=== PATIENT | male | born 1960 | race Caucasian/White ===

== ENCOUNTER 2018-09-01 05:33 | Inpatient (IN) | payer BC ==
--- OUTSIDE RECORDS SUMMARY | 2018-09-01 05:36 | XMS REPORT ---
:1960 Author Organization [facility] Address [address] [place] [address] Care Team Providers Name Role Phone ARIELLA FANG Unavailable Unavailable Problems This patient has no known problems. Allergies, Adverse Reactions, Alerts This patient has no known allergies or adverse reactions. Medications This patient has no known medications. Results Test Description Test Time Test Comments Text Results Atomic Results Result Comments HEMOGLOBIN AND HEMATOCRIT 2016-12-11 09:24:00 Test Item Value Reference Range Comments HEMOGLOBIN (BEAKER) (test zlhu=930) 9.8 GM/DL 13.0-16.8 HEMATOCRIT (BEAKER) (test boxs=701) 29.7 % 40.0-50.0 POCT-GLUCOSE [id number] 08:04:00 Test Item Value Reference Range Comments POC-GLUCOSE METER (BEAKER) 59 mg/dL 70-110 TESTED AT [facility] [address] [facility] (test dqfg=6259) [facility] [address] BASIC METABOLIC [id number] 06:07:00 Test Item Value Reference Range Comments SODIUM (BEAKER) (test 140 meq/L 136-145 dtbs=961) POTASSIUM (BEAKER) (test 4.2 meq/L 3.5-5.1 mlrg=763) CHLORIDE (BEAKER) (test 114 meq/L 98-107 qqqi=630) CO2 (BEAKER) (test 20 meq/L 22-29 viux=600) BLOOD UREA NITROGEN 16 mg/dL 7-21 (BEAKER) (test wwsh=023) CREATININE (BEAKER) (test 1.23 mg/dL 0.57-1.25 bpvv=459) GLUCOSE RANDOM (BEAKER) 93 mg/dL 70-105 (test lhbg=843) CALCIUM (BEAKER) (test 6.8 mg/dL 8.4-10.2 lfpw=810) EGFR (BEAKER) (test 61 mL/min/1.73 sq m ESTIMATED GFR IS NOT niez=6968) ACCURATE CREATININE CLEARANCE IN PREDICTING GLOMERULAR FILTRATION RATE. ESTIMATED GFR IS NOT APPLICABLE FOR DIALYSIS PATIENTS. POCT-GLUCOSE [id number] 22:08:00 Test Item Value Reference Range Comments POC-GLUCOSE METER (BEAKER) 200 mg/dL 70-110 TESTED AT [address] (test lwmo=2664) [facility] [address] POCT-GLUCOSE [id number] 17:00:00 Test Item Value Reference Range Comments POC-GLUCOSE METER (BEAKER) 289 mg/dL 70-110 TESTED AT [address] (test ndvx=8791) [place] [id number] BASIC METABOLIC [id number] 14:43:00 Test Item Value Reference Range Comments SODIUM (BEAKER) (test 141 meq/L 136-145 llgq=791) POTASSIUM (BEAKER) (test 4.1 meq/L 3.5-5.1 fixc=318) CHLORIDE (BEAKER) (test 116 meq/L 98-107 pljo=077) CO2 (BEAKER) (test 17 meq/L 22-29 yhdn=653) BLOOD UREA NITROGEN 31 mg/dL 7-21 (BEAKER) (test iemb=048) CREATININE (BEAKER) (test 1.66 mg/dL 0.57-1.25 hxxs=128) GLUCOSE RANDOM (BEAKER) 261 mg/dL 70-105 (test tfsx=104) CALCIUM (BEAKER) (test 7.3 mg/dL 8.4-10.2 mlni=999) EGFR (BEAKER) (test 43 mL/min/1.73 sq m ESTIMATED GFR IS NOT szxl=5481) ACCURATE CREATININE CLEARANCE IN PREDICTING GLOMERULAR FILTRATION RATE. ESTIMATED GFR IS NOT APPLICABLE FOR DIALYSIS PATIENTS. HEMOGLOBIN AND [id number] 14:32:00 Test Item Value Reference Range Comments HEMOGLOBIN (BEAKER) (test uqta=262) 10.0 GM/DL 13.0-16.8 HEMATOCRIT (BEAKER) (test uwpd=113) 28.4 % 40.0-50.0 POCT-GLUCOSE [id number] 13:51:00 Test Item Value Reference Range Comments POC-GLUCOSE METER (BEAKER) 282 mg/dL 70-110 TESTED AT [address] (test ictf=7604) [place] [address] SODIUM NA-STAT [id number] 13:16:00 Test Item Value Reference Range Comments SODIUM (BEAKER) (test fgjg=777) 137 meq/L 135-148 POTASSIUM-STAT [id number] 13:16:00 Test Item Value Reference Range Comments POTASSIUM (BEAKER) (test gbab=517) 4.1 meq/L 3.6-5.5 BLOOD GAS, [id number] 13:16:00 Test Item Value Reference Range Comments PH ARTERIAL (BEAKER) (test rgdp=682) 7.32 7.35-7.45 PCO2 ARTERIAL (BEAKER) (test dmsv=687) 36 mmHg 35-45 PO2 ARTERIAL (BEAKER) (test grsv=654) 521 mmHg 80-90 O2 SATURATION ARTERIAL (BEAKER) (test xtwh=605) 99.9 % 96.0-97.0 HCO3 ARTERIAL (BEAKER) (test eyae=428) 18 mmol/L 21-29 BASE EXCESS ARTERIAL (BEAKER) (test jhud=824) -7.0 mmol/L -2.0-3.0 PATIENT TEMPERATURE (BEAKER) (test mawh=1352) 37.0 C FIO2 (BEAKER) (test rrsz=7476) 100.0 % GLUCOSE-STAT [id number] 13:16:00 Test Item Value Reference Range Comments GLUCOSE RANDOM (BEAKER) (test drys=852) 295 mg/dL 70-110 HGB/HCT (H&H) - STAT [id number] 13:16:00 Test Item Value Reference Range Comments HEMOGLOBIN (BEAKER) (test tmgy=591) 9.9 g/dL 13.0-16.8 HEMATOCRIT (BEAKER) (test ucui=286) 29.0 % 40.0-50.0 CALCIUM, [id number] 13:16:00 Test Item Value Reference Range Comments CALCIUM IONIZED (BEAKER) (test ioaz=174) 1.04 mmol/L 1.12-1.27 PH, BLOOD (BEAKER) (test efnx=0328) 7.32 BLOOD GAS, [id number] 12:22:00 Test Item Value Reference Range Comments PH ARTERIAL (BEAKER) (test smay=325) 7.33 7.35-7.45 PCO2 ARTERIAL (BEAKER) (test iavv=441) 31 mmHg 35-45 PO2 ARTERIAL (BEAKER) (test pmjd=722) 259 mmHg 80-90 O2 SATURATION ARTERIAL (BEAKER) (test dxek=027) 99.6 % 96.0-97.0 HCO3 ARTERIAL (BEAKER) (test jsvp=232) 16 mmol/L 21-29 BASE EXCESS ARTERIAL (BEAKER) (test bfpx=737) -9.4 mmol/L -2.0-3.0 PATIENT TEMPERATURE (BEAKER) (test vjzm=2353) 37.0 C FIO2 (BEAKER) (test eiij=3313) 21.0 % GLUCOSE-STAT [id number] 12:22:00 Test Item Value Reference Range Comments GLUCOSE RANDOM (BEAKER) (test xprw=481) 322 mg/dL 70-110 HGB/HCT (H&H) - STAT [id number] 12:22:00 Test Item Value Reference Range Comments HEMOGLOBIN (BEAKER) (test gkpp=536) 9.7 g/dL 13.0-16.8 HEMATOCRIT (BEAKER) (test higo=084) 29.0 % 40.0-50.0 CALCIUM, [id number] 12:22:00 Test Item Value Reference Range Comments CALCIUM IONIZED (BEAKER) (test mneu=015) 0.99 mmol/L 1.12-1.27 PH, BLOOD (BEAKER) (test mixm=5013) 7.33 SODIUM NA-STAT [id number] 12:18:00 Test Item Value Reference Range Comments SODIUM (BEAKER) (test lrlz=228) 136 meq/L 135-148 POTASSIUM-STAT [id number] 12:18:00 Test Item Value Reference Range Comments POTASSIUM (BEAKER) (test hblu=271) 4.4 meq/L 3.6-5.5 BLOOD GAS, [id number] 11:22:00 Test Item Value Reference Range Comments PH ARTERIAL (BEAKER) (test upfi=746) 7.35 7.35-7.45 PCO2 ARTERIAL (BEAKER) (test lxsq=259) 33 mmHg 35-45 PO2 ARTERIAL (BEAKER) (test xfdj=477) 312 mmHg 80-90 O2 SATURATION ARTERIAL (BEAKER) (test kisv=484) 99.7 % 96.0-97.0 HCO3 ARTERIAL (BEAKER) (test eyex=528) 17 mmol/L 21-29 BASE EXCESS ARTERIAL (BEAKER) (test mfze=697) -7.4 mmol/L -2.0-3.0 PATIENT TEMPERATURE (BEAKER) (test xkfb=5307) 37.0 C FIO2 (BEAKER) (test iuah=7742) 21.0 % GLUCOSE-STAT [id number] 11:22:00 Test Item Value Reference Range Comments GLUCOSE RANDOM (BEAKER) (test fznr=832) 352 mg/dL 70-110 HGB/HCT (H&H) - STAT [id number] 11:22:00 Test Item Value Reference Range Comments HEMOGLOBIN (BEAKER) (test aujc=599) 10.4 g/dL 13.0-16.8 HEMATOCRIT (BEAKER) (test vjqp=044) 31.0 % 40.0-50.0 CALCIUM, [id number] 11:22:00 Test Item Value Reference Range Comments CALCIUM IONIZED (BEAKER) (test llwa=747) 1.03 mmol/L 1.12-1.27 PH, BLOOD (BEAKER) (test fmyf=6458) 7.35 SODIUM NA-STAT [id number] 11:21:00 Test Item Value Reference Range Comments SODIUM (BEAKER) (test igvn=916) 136 meq/L 135-148 POTASSIUM-STAT [id number] 11:21:00 Test Item Value Reference Range Comments POTASSIUM (BEAKER) (test pwgi=701) 5.4 meq/L 3.6-5.5 SODIUM NA-STAT [id number] 08:47:00 Test Item Value Reference Range Comments SODIUM (BEAKER) (test edcs=059) 135 meq/L 135-148 POTASSIUM-STAT [id number] 08:47:00 Test Item Value Reference Range Comments POTASSIUM (BEAKER) (test eeez=996) 4.4 meq/L 3.6-5.5 BLOOD GAS, [id number] 08:47:00 Test Item Value Reference Range Comments PH ARTERIAL (BEAKER) (test nznm=186) 7.39 7.35-7.45 PCO2 ARTERIAL (BEAKER) (test tfef=427) 35 mmHg 35-45 PO2 ARTERIAL (BEAKER) (test oksq=558) 261 mmHg 80-90 O2 SATURATION ARTERIAL (BEAKER) (test rpyh=494) 99.6 % 96.0-97.0 HCO3 ARTERIAL (BEAKER) (test nyyh=764) 21 mmol/L 21-29 BASE EXCESS ARTERIAL (BEAKER) (test kwiw=141) -4.0 mmol/L -2.0-3.0 PATIENT TEMPERATURE (BEAKER) (test udws=4883) 37.0 C FIO2 (BEAKER) (test eumn=3782) 100.0 % GLUCOSE-STAT [id number] 08:47:00 Test Item Value Reference Range Comments GLUCOSE RANDOM (BEAKER) (test hkbo=048) 183 mg/dL 70-110 HGB/HCT (H&H) - STAT [id number] 08:47:00 Test Item Value Reference Range Comments HEMOGLOBIN (BEAKER) (test qeuq=565) 10.5 g/dL 13.0-16.8 HEMATOCRIT (BEAKER) (test wkjv=038) 31.0 % 40.0-50.0 CALCIUM, [id number] 08:47:00 Test Item Value Reference Range Comments CALCIUM IONIZED (BEAKER) (test kztt=775) 1.06 mmol/L 1.12-1.27 PH, BLOOD (BEAKER) (test fhnb=5896) 7.39 [id number] 06:53:00 Test Item Value Reference Range Comments POTASSIUM (BEAKER) (test xtev=736) 4.9 meq/L 3.6-5.5 POCT-GLUCOSE [id number] 06:45:00 Test Item Value Reference Range Comments POC-GLUCOSE METER (BEAKER) 208 mg/dL 70-110 TESTED AT [facility] [address] [place] [address] (test rwld=4871) [facility] [address] URINE [id number] 12:35:00 Test Item Value Reference Range Comments CULTURE (BEAKER) (test ENTEROCOCCUS SPECIES >100,000 col/mL triz=9811) Enterococcus species Ampicillin (test Susceptible >=17 , code=26) Resistant <17 Linezolid (test Susceptible >=23 , code=40) Resistant <23 Nitrofurantoin (test Susceptible >=17 , code=23) Resistant <17 Tetracycline (test Susceptible >=19 , code=2) Resistant <19 Vancomycin (test code=13) CBC W/PLT COUNT & AUTO [id number] 11:52:00 Test Item Value Reference Range Comments WHITE BLOOD CELL COUNT (BEAKER) (test vnij=902) 5.6 K/ L 4.0-10.0 RED BLOOD CELL COUNT (BEAKER) (test gdej=667) 4.27 M/ L 4.20-5.80 HEMOGLOBIN (BEAKER) (test zqjl=401) 13.5 GM/DL 13.0-16.8 HEMATOCRIT (BEAKER) (test pzij=231) 40.3 % 40.0-50.0 MEAN CORPUSCULAR VOLUME (BEAKER) (test zqkh=427) 94.3 fL 82.0-98.0 MEAN CORPUSCULAR HEMOGLOBIN (BEAKER) (test 31.6 pg 27.0-33.0 vhdz=866) MEAN CORPUSCULAR HEMOGLOBIN CONC (BEAKER) (test 33.5 GM/DL 32.0-36.0 cbkv=644) RED CELL DISTRIBUTION WIDTH (BEAKER) (test 12.4 % 10.3-14.2 plcr=759) PLATELET COUNT (BEAKER) (test hrkt=292) 205 K/CU MM 150-430 MEAN PLATELET VOLUME (BEAKER) (test zhvn=918) 7.6 fL 6.5-10.5 NUCLEATED RED BLOOD CELLS (BEAKER) (test 0 /100 WBC 0-0 swsn=787) NEUTROPHILS RELATIVE PERCENT (BEAKER) (test 47 % sjtv=061) LYMPHOCYTES RELATIVE PERCENT (BEAKER) (test 37 % ecwq=901) MONOCYTES RELATIVE PERCENT (BEAKER) (test 11 % nvgv=387) EOSINOPHILS RELATIVE PERCENT (BEAKER) (test 5 % vsvf=732) BASOPHILS RELATIVE PERCENT (BEAKER) (test 1 % sknq=181) NEUTROPHILS ABSOLUTE COUNT (BEAKER) (test 2.60 K/ L 1.80-8.00 znwp=681) LYMPHOCYTES ABSOLUTE COUNT (BEAKER) (test 2.08 K/ L 1.48-4.50 udxp=851) MONOCYTES ABSOLUTE COUNT (BEAKER) (test 0.61 K/ L 0.00-1.30 dezf=619) EOSINOPHILS ABSOLUTE COUNT (BEAKER) (test 0.26 K/ L 0.00-0.50 aueg=469) BASOPHILS ABSOLUTE COUNT (BEAKER) (test 0.04 K/ L 0.00-0.20 oaiv=359) 0.00COMPREHENSIVE METABOLIC [id number] 11:47:00 Test Item Value Reference Range Comments TOTAL PROTEIN (BEAKER) 7.4 gm/dL 6.0-8.3 Specimen slightly (test xonm=404) hemolyzed ALBUMIN (BEAKER) (test 4.1 g/dL 3.5-5.0 Specimen slightly kskm=6916) hemolyzed ALKALINE PHOSPHATASE 119 U/L 40-150 (BEAKER) (test dpye=986) BILIRUBIN TOTAL (BEAKER) 0.7 mg/dL 0.2-1.2 Specimen slightly (test fvxq=862) hemolyzed SODIUM (BEAKER) (test 140 meq/L 136-145 cnpg=190) POTASSIUM (BEAKER) (test 5.7 meq/L 3.5-5.1 Specimen slightly genp=960) hemolyzed CHLORIDE (BEAKER) (test 108 meq/L 98-107 nyqm=054) CO2 (BEAKER) (test 21 meq/L 22-29 bjvo=977) BLOOD UREA NITROGEN 31 mg/dL 7-21 (BEAKER) (test gzgq=356) CREATININE (BEAKER) (test 1.68 mg/dL 0.57-1.25 Specimen slightly zcia=008) hemolyzed GLUCOSE RANDOM (BEAKER) 217 mg/dL 70-105 (test rqyx=235) CALCIUM (BEAKER) (test 9.1 mg/dL 8.4-10.2 hhky=057) AST (SGOT) (BEAKER) (test 24 U/L 5-34 Specimen slightly maxm=362) hemolyzed ALT (SGPT) (BEAKER) (test 26 U/L 6-55 Specimen slightly xakj=317) hemolyzed EGFR (BEAKER) (test 42 mL/min/1.73 sq m ESTIMATED GFR IS NOT igbj=1602) ACCURATE CREATININE CLEARANCE IN PREDICTING GLOMERULAR FILTRATION RATE. ESTIMATED GFR IS NOT APPLICABLE FOR DIALYSIS PATIENTS. URINALYSIS W/ [id number] 11:46:00 Test Item Value Reference Range Comments COLOR (BEAKER) (test yzps=716) Yellow CLARITY (BEAKER) (test hpqa=629) Clear SPECIFIC GRAVITY UA (BEAKER) (test mwzq=492) 1.014 1.001-1.035 PH UA (BEAKER) (test xsmv=007) 5.5 5.0-8.0 PROTEIN UA (BEAKER) (test irah=207) 10 mg/dL Negative GLUCOSE UA (BEAKER) (test adbi=205) 200 mg/dL Negative KETONES UA (BEAKER) (test apga=342) Negative Negative BILIRUBIN UA (BEAKER) (test hcmc=281) Negative Negative BLOOD UA (BEAKER) (test foxq=511) Trace Negative NITRITE UA (BEAKER) (test opfu=047) Negative Negative LEUKOCYTE ESTERASE UA (BEAKER) (test fbkp=729) Large Negative UROBILINOGEN UA (BEAKER) (test wvya=325) 0.2 mg/dL 0.2-1.0 RBC UA (BEAKER) (test aesm=888) 19 /HPF WBC UA (BEAKER) (test hgux=605) 115 /HPF BACTERIA (BEAKER) (test adto=087) Many MUCUS (BEAKER) (test xxow=3129) Rare SQUAMOUS EPITHELIAL (BEAKER) (test mlse=437) < /HPF SOURCE(BEAKER) (test lvix=7590)
--- OUTSIDE RECORDS SUMMARY | 2018-09-01 05:36 | XMS REPORT | Clinical Summary ---
:1960 Author Organization [facility] Address [address] [place] [address] Care Team Providers Name Role Phone Radha Daniel Bruce Primary Care Provider Allergies Active Allergy Reactions Severity Noted Date Comments Penicillins Anaphylaxis High 11/27/2016 Medications Medication Sig Dispensed Refills Start Date End Date Status valsartan (DIOVAN) 80 MG Take 80 mg by 0 Active tablet mouth daily. ranolazine (RANEXA) 500 Take 500 mg by 0 Active MG 12 hr tablet mouth 2 (two) times daily. rosuvastatin (CRESTOR) 5 Take 5 mg by 0 Active MG tablet mouth daily. aspirin 81 MG EC tablet Take 81 mg by 0 Active mouth daily. ERGOCALCIFEROL, VITAMIN Take by mouth 0 Active D2, (VITAMIN D2 ORAL) daily. amoxicillin (AMOXIL) 500 Take 500 mg by 0 Active MG capsule mouth 3 (three) times daily. 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 Last Filed Vital Signs Not on file Plan of Treatment Not on file Results Not on fileafter 08/31/2017 Insurance Payer Benefit Plan / Group Subscriber ID Type Phone Address [facility] xxxxxxxxx Advance Directives For more information, please contact:[address] [phone] Code Status Date Activated Date Inactivated Comments Full Code 12/10/2016 4:04 PM 12/11/2016 3:02 PM This code status was determined by: Patient
--- OUTSIDE RECORDS SUMMARY | 2018-09-01 05:36 | XMS REPORT | Clinical Summary ---
:1960 Author Organization [facility] Address [address] [place] [address] Care Team Providers Name Role Phone Daniel Garcia MD Primary Care Provider Unavailable Allergies No Known Allergies Medications Medication Sig Dispensed Refills Start Date End Date Status valsartan (DIOVAN) 80 Take 80 mg by 0 02/12/2016 Active MG tablet mouth daily. RANEXA 500 mg 12 hr ER Take 500 mg by 0 02/12/2016 Active tablet mouth 2 (two) times a day. rosuvastatin (CRESTOR) Take 10 mg by 0 Active 10 MG tablet mouth daily. INSULIN REGULAR, HUMAN Inject under the 0 Active (INSULIN PUMP) 500 skin unit/mL continuously. aspirin (ECOTRIN) 81 MG Take 81 mg by 0 Active enteric coated tablet mouth daily. 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 Last Filed Vital Signs Not on file Plan of Treatment Health Maintenance Due Date Last Done Comments MMR VACCINES (1 of 1 - Standard 1960 series) VARICELLA VACCINES (1 of 2 - 2-dose 1972 adolescent series) COLON CANCER SCREENING 2009 SHINGRIX VACCINE (1 of 2) 2009 INFLUENZA VACCINE 05/11/2018 HEPATITIS B VACCINES Aged Out No longer eligible based on patient's age to complete this topic IPV VACCINES Aged Out No longer eligible based on patient's age to complete this topic MENINGOCOCCAL VACCINE Aged Out No longer eligible based on patient's age to complete this topic Implants Implanted Type Area Aniline Press Worker Device Shelf Model / Identifier Expiration Serial / Date Lot Skw Deep Scrotal Retract System - [id number] IPM SUPPLIES N/A: MACANESE [id number] / Implanted: Qty: 1 on 04/17/2016 by Cesar Harding MD PATIENT Penis MEDICAL / BILLABLE SYSTEMS- AMS Spectra Rear Tip Extenders 12mm & 14mm-3cm - [id number] IPM SUPPLIES N/A: N/A [employer]ANESE 03/05/2021 [id number] / Implanted: Qty: 1 on 04/17/2016 by Cesar Harding MD PATIENT MEDICAL / NON-BILLABLE SYSTEMS- AMS [id number] Injectables Injectables Kit Accy Infltbl Penile Ams 700 - [id number] Urological N/A: MACANESE 02/13 [id number] / Implanted: Qty: 1 on 04/17/2016 by Cesar Harding MD Implants or Penis MEDICAL / [employer] [id number] Implant Penile Ams 700 Lgx Ms Prcnctd Pnscrtl Aprch 18cm - [id number] Urological N/A: MACANESE 02/04/2018 [id number] / Implanted: Qty: 1 on 04/17/2016 by Cesar Harding MD Implants or Penis MEDICAL / [employer] [id number] Implant Penile Rsvr Ams 700 Ms Prcnctd W/ Iz 100ml - [id number] Urological N/A : MACANESE 09/03/2017 [id number] / Implanted: Qty: 1 on 04/17/2016 by Cesar Harding MD Implants or Penis MEDICAL / [employer] [id number] Insulin Pump Results Not on fileafter 08/31/2017 Insurance Payer Benefit Plan / Group Subscriber ID Type Phone Address [facility] xxxxxxxxx HMO Advance Directives Patient has advance care planning documents on file. For more information, please contact:[place] [address]
[2018-09-01] MEDS ORDERED: ASPIRIN 81 MG CHEWABLE TABLET ONE (06:13)
[2018-09-01] MEDS ORDERED: ENOXAPARIN 100 MG/ML SYR SQ ONE (06:13)
[2018-09-01] MEDS ORDERED: NITROGLYCERIN/D5W 50 MG/250 ML BTL IV ONE (06:14)
[2018-09-01 06:15] LABS: Protime INR 0.96
[2018-09-01 06:16] LABS: Absolute Lymphocytes (CBC) 1.1 K/uL (0.7-4.9); Absolute Monocytes 0.5 K/uL (0.1-1.3); Absolute Neutrophil 3.9 K/uL (1.8-8.0); Basophils % 0.7 % (0-1.3); Eosinophils % 1.6 % (0-4.4); Hematocrit 40.4 % (39.6-49.0); Lymphocytes % 19.6 % (15.3-44.8); MCV 90.8 fL (80-100); MPV 8.8 fL (7.6-11.3); Monocytes % 8.8 % (3.3-12.3); RBC Red Blood Cell Count 4.44 M/uL (4.33-5.43)
[2018-09-01 06:43] LABS: Albumin 3.7 g/dL (3.4-5.0); Bilirubin Direct 0.2 mg/dL (0-0.2); Bilirubin Total 0.5 mg/dL (0.2-1.0); Magnesium 1.9 mg/dL (1.8-2.4); Potassium 4.4 mmol/L (3.5-5.1); Protein, Total 7.4 g/dL (6.4-8.2); Troponin (Emerg Dept Use Only) 0.1 ng/mL (0.0-0.045)
--- NOTE | 2018-09-01 07:08 | EDPHYS ---
Physician Documentation [facility] Name: Florencio Holm Jr Age: 58 yrs Sex: Male : 1960 Arrival Date: 09/01/2018 Time: 05:34 Bed 8 Private MD: ED Physician Miguel Weston HPI: 09/01 07:27 This 58 yrs old Male presents to ER via EMS with complaints of chest pain. tw4 07:27 The patient or guardian reports chest pain that is located primarily in the anterior tw4 chest wall. Onset: today. The pain does not radiate. Associated signs and symptoms: The patient has no apparent associated signs or symptoms. The chest pain is described as dull. Duration: The patient or guardian reports a single episode. Severity of pain: At its worst the pain was moderate in the emergency department the pain is unchanged. The patient has not experienced similar symptoms in the past. Historical: - Allergies: 05:56 No Known Allergies; ao - Home Meds: 05:56 rosuvastatin oral oral [Active]; BP medication [Active]; Insulin pump [Active]; ao - PMHx: 05:56 CAD; Diabetes - IDDM; Hyperlipidemia; Hypertension; ao - PSHx: 05:56 Heart Surgery; ao - Immunization history:: Adult Immunizations up to date. - Social history:: Smoking status: Patient/guardian denies using tobacco, Patient/guardian denies using alcohol, street drugs. - Ebola Screening: : Patient negative for fever greater than or equal to 101.5 degrees Fahrenheit, and additional compatible Ebola Virus Disease symptoms Patient denies exposure to infectious person Patient denies travel to an Ebola-affected area in the 21 days before illness onset. ROS: 07:27 Constitutional: Negative for fever, chills, and weight loss, Respiratory: Negative for tw4 shortness of breath, cough, wheezing, and pleuritic chest pain, Abdomen/GI: Negative for abdominal pain, nausea, vomiting, diarrhea, and constipation, Back: Negative for injury and pain, MS/Extremity: Negative for injury and deformity, Skin: Negative for injury, rash, and discoloration, Neuro: Negative for headache, weakness, numbness, tingling, and seizure. 07:27 Cardiovascular: Positive for chest pain. Exam: 07:27 Constitutional: This is a well developed, well nourished patient who is awake, alert, tw4 and in no acute distress. Head/Face: Normocephalic, atraumatic. Chest/axilla: Normal chest wall appearance and motion. Nontender with no deformity. No lesions are appreciated. Cardiovascular: Regular rate and rhythm with a normal S1 and S2. No gallops, murmurs, or rubs. Normal PMI, no JVD. No pulse deficits. Respiratory: Lungs have equal breath sounds bilaterally, clear to auscultation and percussion. No rales, rhonchi or wheezes noted. No increased work of breathing, no retractions or nasal flaring. Abdomen/GI: Soft, non-tender, with normal bowel sounds. No distension or tympany. No guarding or rebound. No evidence of tenderness throughout. Back: No spinal tenderness. No costovertebral tenderness. Full range of motion. MS/ Extremity: Pulses equal, no cyanosis. Neurovascular intact. Full, normal range of motion. Neuro: Awake and alert, GCS 15, oriented to person, place, time, and situation. Cranial nerves II-XII grossly intact. Motor strength 5/5 in all extremities. Sensory grossly intact. Cerebellar exam normal. Normal gait. 07:27 ECG was reviewed by the Attending Physician. tw4 Vital Signs: 05:45 BP 186 / 92; Pulse 106; Resp 18; Temp 98.1(O); Pulse Ox 99% on R/A; Weight 94.35 kg; ao Height 5 ft. 11 in. (180.34 cm); Pain 6/10; 06:00 BP 168 / 98; Pulse 101; Resp 18; Pulse Ox 99% on R/A; jb4 06:15 BP 163 / 76; Pulse 94; Resp 18; Pulse Ox 99% on R/A; jb4 06:20 BP 157 / 78; Pulse 94; Resp 18; Pulse Ox 98% on R/A; jb4 06:25 BP 150 / 80; Pulse 97; Resp 18; Pulse Ox 98% on R/A; jb4 06:30 BP 164 / 74; Pulse 100; Resp 14; Pulse Ox 97% on R/A; jb4 06:35 BP 147 / 75; Pulse 100; Resp 15; Pulse Ox 96% on R/A; jb4 06:40 BP 140 / 77; Pulse 101; Resp 16; Pulse Ox 99% on R/A; jb4 06:45 BP 140 / 80; Pulse 100; Resp 17; Pulse Ox 96% on R/A; jb4 06:50 BP 140 / 81; Pulse 100; Resp 22; Pulse Ox 97% on R/A; jb4 06:55 BP 141 / 81; Pulse 100; Resp 22; Pulse Ox 96% on R/A; jb4 07:22 BP 140 / 83; Pulse 90; Resp 18 S; Pulse Ox 99% on R/A; Pain 0/10; jl7 08:46 BP 149 / 78; Pulse 88; Resp 16 S; Pulse Ox 100% on R/A; Pain 0/10; jl7 05:45 Body Mass Index 29.01 (94.35 kg, 180.34 cm) ao 06:30 Nitro drip increased to 10mcg/min, 3ml/hr jb4 06:50 Nitro drip increased 5mcg/min. total 15mcg/min. 4.5ml/hr jb4 MDM: 05:48 Patient medically screened. tw4 07:29 Differential diagnosis: acute myocardial infarction, acute pericarditis, pulmonary tw4 embolus, stable angina, thoracic aortic disection, unstable angina. HEART Score: History: Highly Suspicious (2), ECG: Significant ST-deviation (2), Age: > 45 and < 65 years (1), Risk Factors: > or = 3 Risk factors for atherosclerotic disease (2), Troponin: > or = 3 x Normal Limit (2). The patient was not given aspirin in the Emergency Department. Patient reports taking aspirin within the past 24 hours. Data reviewed: vital signs, nurses notes. Data interpreted: director of career resources: rhythm is sinus tachycardia, Pulse oximetry: Interpretation: normal. Test interpretation: by ED physician or midlevel provider: ECG. Counseling: I had a detailed discussion with the patient and/or guardian regarding: the historical points, exam findings, and any diagnostic results supporting the discharge/admit diagnosis, lab results, radiology results. Physician consultation: Elvira Haskins MD was contacted at 07:00, regarding admission, patient's condition, need to evaluate the patient as soon as possible, and will see patient in inpatient room, would like consultation with Dr. Dr Plummer discussed case with checking clerk at 0705. 07:31 Medication response: nitro drip. Response to treatment: the patient's symptoms have tw4 resolved after treatment, the patient's pain is gone, and as a result, I will admit patient, Lovenox and nitro paste. 09/01 05:39 Order name: Basic Metabolic Panel; Complete Time: 07:04 09/01 07:04 Interpretation: Normal except: GLUC 394; BUN 27; CRE 1.90; GFR 36. tw4 09/01 05:39 Order name: CBC with Diff; Complete Time: 07:06 09/01 05:39 Order name: LFT's; Complete Time: 07:04 09/01 07:04 Interpretation: Normal except: BILIT 0.5; GLOB 3.7; A/G 1.0. tw4 09/01 05:39 Order name: Magnesium; Complete Time: 07:06 09/01 05:39 Order name: NT PRO-BNP; Complete Time: 07:04 09/01 07:04 Interpretation: Normal except: NT PRO-BNP 299. tw4 09/01 05:39 Order name: PT-INR; Complete Time: 07:06 09/01 05:39 Order name: Troponin (emerg Dept Use Only); Complete Time: 07:04 09/01 07:04 Interpretation: Normal except: TROPED 0.10. tw4 09/01 05:39 Order name: XRAY Chest (1 view) 09/01 08:14 Order name: Glucose, Ancillary Testing EDMS 09/01 05:39 Order name: EKG; Complete Time: 05:41 09/01 05:39 Order name: Cardiac monitoring; Complete Time: 05:40 09/01 05:39 Order name: EKG - Nurse/Tech; Complete Time: 05:40 09/01 05:39 Order name: IV Saline Lock; Complete Time: 06:16 09/01 05:39 Order name: Labs collected and sent; Complete Time: 06:16 09/01 05:39 Order name: O2 Per Protocol; Complete Time: 05:40 09/01 05:39 Order name: O2 Sat Monitoring; Complete Time: 05:40 09/01 11:38 Order name: Diet Ada 1800 Jah; Complete Time: 11:38 aa5 EC: Rate is 103 beats/min. Rhythm is regular, Sinus tachycardia. QRS [place] is Normal. IA tw4 interval is normal. QRS interval is normal. QT interval is normal. No Q waves. T waves are Normal. Clinical impression: NSR w/ Non-specific ST/T Changes, Abnormal EKG without significant change, and Cardiac ischemia. Administered Medications: Discontinued: Nitro Drip - (Nitroglycerin 50 mg, D5W 250 ml) IV at 5 mcg/min continuous; titrate until desired hemodynamic response. 06:15 Drug: Nitro Drip - (Nitroglycerin 50 mg, D5W 250 ml) Route: IV; Rate: 5 mcg/min; Site: jb4 right antecubital; 07:10 Follow up: Response: No adverse reaction; IV Status: Order to discontinue infusion jl7 06:15 Drug: Lovenox 1 mg/kg Route: Sub-Q; Site: left lower abdomen; jb4 06:43 Follow up: Response: No adverse reaction jb4 06:22 Not Given (Pt took their own aspirin \T\ 0445 prior to comming to the ER): Aspirin jb4 Chewable Tablet 324 mg PO once; 81 mg tablets x 4 07:10 Drug: Nitro-Bid Ointment 2 % 1 inches Route: Transdermal; Site: anterior chest wall; jl7 11:35 Drug: Insulin Regular Human 10 units {Co-Signature: bp (Terrance Crain RN).} Route: IVP; jl7 Site: right antecubital; 12:31 Follow up: Response: Blood sugar is lowered jl7 Point of Care Testing: Blood Glucose: 07:20 Blood Glucose: 351 mg/dL; jl7 08:46 Blood Glucose: 329 mg/dL; jl7 Ranges: Critical Glucose Levels:Adult <50 mg/dl or >400 mg/dl <40 mg/dl or >180 mg/dl Disposition: 09/01/18 07:08 Hospitalization ordered by Elvira Haskins for Inpatient Admission. Preliminary diagnosis is Unstable angina. - Bed requested for Telemetry/MedSurg (Inpatient). - Status is Inpatient Admission. jl7 - Condition is Stable. - Problem is an ongoing problem. - Symptoms have improved. UTI on Admission? No Signatures: Dispatcher [employer] Rylee Newton RN RN dw Ballard, Brenda, RN RN bb Calderon, Audri RN RN aa5 David Nichols RN RN ao Bryson, James, RN RN jb4 Kee Dickey RN RN jl7 Miguel Weston MD MD tw4 Terrance Crain RN bp Corrections: (The following items were deleted from the chart) 10:56 07:08 Hospitalization Ordered by Elvira Haskins MD for Inpatient Admission. Preliminary aa5 diagnosis is Unstable angina. Bed requested for Telemetry/MedSurg (Inpatient). Status is Inpatient Admission. Condition is Stable. Problem is an ongoing problem. Symptoms have improved. UTI on Admission? No. tw4 10:57 10:56 09/01/2018 07:08 Hospitalization Ordered by Elvira Haskins MD for Inpatient aa5 Admission. Preliminary diagnosis is Unstable angina. Bed requested for [facility] ER HOLD. Status is Inpatient Admission. Condition is Stable. Problem is an ongoing problem. Symptoms have improved. UTI on Admission? No. aa5 10:57 10:57 09/01/2018 07:08 Hospitalization Ordered by Elvira Haskins MD for Inpatient aa5 Admission. Preliminary diagnosis is Unstable angina. Bed requested for [facility] ER HOLD. Status is Inpatient Admission. Condition is Stable. Problem is an ongoing problem. Symptoms have improved. UTI on Admission? No. aa5 11:55 10:57 09/01/2018 07:08 Hospitalization Ordered by Elvira Haskins MD for Inpatient dw Admission. Preliminary diagnosis is Unstable angina. Bed requested for [facility] ER HOLD. Status is Inpatient Admission. Condition is Stable. Problem is an ongoing problem. Symptoms have improved. UTI on Admission? No. aa5 12:58 11:55 09/01/2018 07:08 Hospitalization Ordered by Elvira Haskins MD for Inpatient jl7 Admission. Preliminary diagnosis is Unstable angina. Bed requested for Telemetry/MedSurg (Inpatient). Status is Inpatient Admission. Condition is Stable. Problem is an ongoing problem. Symptoms have improved. UTI on Admission? No. dw
--- NOTE | 2018-09-01 07:08 | ER ---
Nurse's Notes [facility] Name: Florencio Holm Jr Age: 58 yrs Sex: Male : 1960 Arrival Date: 09/01/2018 Time: 05:34 Bed 8 Private MD: Diagnosis: Unstable angina Presentation: 09/01 05:36 Presenting complaint: EMS states: Tone up for chest pain radiating to the left arm pit. ao Patient reports taking unknown amount of aspiring. Patient reports nausea. Transition of care: patient was not received from another setting of care. Onset of symptoms was September 01, 2018 at 04:00. Risk Assessment: Do you want to hurt yourself or someone else? Patient reports no desire to harm self or others. Initial Sepsis Screen: Does the patient meet any 2 criteria? No. Patient's initial sepsis screen is negative. Does the patient have a suspected source of infection? No. Patient's initial sepsis screen is negative. Care prior to arrival: Medication(s) given: ASA, unknown. 05:36 Method Of Arrival: EMS: [facility] ao 05:36 Acuity: FANI 2 ao Triage Assessment: 06:00 General: Appears in no apparent distress. uncomfortable, Behavior is anxious. Pain: ao Complains of pain in chest Pain radiates to left arm Pain currently is 8 out of 10 on a pain scale. EENT: No signs and/or symptoms were reported regarding the EENT system. Neuro: Level of Consciousness is awake, alert, obeys commands, Oriented to person, place, time, situation, Appropriate for age Moves all extremities. Full function Speech is normal, Facial symmetry appears normal, Pupils are PERRLA. Cardiovascular: Reports chest pain, shortness of breath, Capillary refill < 3 seconds Patient's skin is warm and dry. Respiratory: Reports shortness of breath Airway is patent Respiratory effort is even, unlabored, Respiratory pattern is regular, symmetrical. GI: Abdomen is round obese. : No signs and/or symptoms were reported regarding the genitourinary system. Derm: No signs and/or symptoms reported regarding the dermatologic system. Musculoskeletal: No signs and/or symptoms reported regarding the musculoskeletal system. Historical: - Allergies: 05:56 No Known Allergies; ao - Home Meds: 05:56 rosuvastatin oral oral [Active]; BP medication [Active]; Insulin pump [Active]; ao - PMHx: 05:56 CAD; Diabetes - IDDM; Hyperlipidemia; Hypertension; ao - PSHx: 05:56 Heart Surgery; ao - Immunization history:: Adult Immunizations up to date. - Social history:: Smoking status: Patient/guardian denies using tobacco, Patient/guardian denies using alcohol, street drugs. - Ebola Screening: : Patient negative for fever greater than or equal to 101.5 degrees Fahrenheit, and additional compatible Ebola Virus Disease symptoms Patient denies exposure to infectious person Patient denies travel to an Ebola-affected area in the 21 days before illness onset. Screenin:03 Abuse screen: Denies threats or abuse. Denies injuries from another. Nutritional ao screening: No deficits noted. Tuberculosis screening: No symptoms or risk factors identified. Fall Risk None identified. Assessment: 05:55 General: See triage assessment. ao 06:23 General: Appears in no apparent distress. comfortable, Behavior is cooperative, jb4 appropriate for age, anxious. Pain: Complains of pain in anterior aspect of right upper chest and anterior aspect of left upper chest Pain radiates to anterior aspect of right shoulder and anterior aspect of left shoulder Pain currently is 8 out of 10 on a pain scale. Quality of pain is described as pressure, Pain began 2 hours ago. Neuro: Level of Consciousness is awake, alert, obeys commands, Oriented to person, place, time, situation. Cardiovascular: Heart tones S1 S2 present Patient's skin is warm and dry. Rhythm is sinus tachycardia. Respiratory: Airway is patent Respiratory effort is even, unlabored, Respiratory pattern is regular, symmetrical, Breath sounds are clear bilaterally. GI: No signs and/or symptoms were reported involving the gastrointestinal system. : No signs and/or symptoms were reported regarding the genitourinary system. EENT: No signs and/or symptoms were reported regarding the EENT system. Derm: Skin is intact, Skin is pink, warm \T\ dry. Musculoskeletal: Circulation, motion, and sensation intact. 07:22 General: Appears in no apparent distress. uncomfortable, Behavior is calm, cooperative, jl7 appropriate for age. Pain: Denies pain. Neuro: Level of Consciousness is awake, alert, obeys commands, Oriented to person, place, time, situation. Cardiovascular: Heart tones S1 S2 present Patient's skin is warm and dry. Rhythm is sinus rhythm. Respiratory: Airway is patent Respiratory effort is even, unlabored, Respiratory pattern is regular, symmetrical, Breath sounds are clear bilaterally. GI: Patient currently denies diarrhea, nausea, vomiting. : No signs and/or symptoms were reported regarding the genitourinary system. EENT: No signs and/or symptoms were reported regarding the EENT system. Derm: Skin is pink, warm \T\ dry. Musculoskeletal: No signs and/or symptoms reported regarding the musculoskeletal system. 07:30 Reassessment: Per Dr. Weston, pt removed insulin pump. Will check BGL in 1 hour and jl7 follow sliding scale order. 08:48 Reassessment: Patient appears in no apparent distress at this time. No changes from jl7 previously documented assessment. Patient and/or family updated on plan of care and expected duration. Pain level reassessed. Patient is alert, oriented x 3, equal unlabored respirations, skin warm/dry/pink. Dr. Plummer at bedside discussing plan of care. Vital Signs: 05:45 BP 186 / 92; Pulse 106; Resp 18; Temp 98.1(O); Pulse Ox 99% on R/A; Weight 94.35 kg; ao Height 5 ft. 11 in. (180.34 cm); Pain 6/10; 06:00 BP 168 / 98; Pulse 101; Resp 18; Pulse Ox 99% on R/A; jb4 06:15 BP 163 / 76; Pulse 94; Resp 18; Pulse Ox 99% on R/A; jb4 06:20 BP 157 / 78; Pulse 94; Resp 18; Pulse Ox 98% on R/A; jb4 06:25 BP 150 / 80; Pulse 97; Resp 18; Pulse Ox 98% on R/A; jb4 06:30 BP 164 / 74; Pulse 100; Resp 14; Pulse Ox 97% on R/A; jb4 06:35 BP 147 / 75; Pulse 100; Resp 15; Pulse Ox 96% on R/A; jb4 06:40 BP 140 / 77; Pulse 101; Resp 16; Pulse Ox 99% on R/A; jb4 06:45 BP 140 / 80; Pulse 100; Resp 17; Pulse Ox 96% on R/A; jb4 06:50 BP 140 / 81; Pulse 100; Resp 22; Pulse Ox 97% on R/A; jb4 06:55 BP 141 / 81; Pulse 100; Resp 22; Pulse Ox 96% on R/A; jb4 07:22 BP 140 / 83; Pulse 90; Resp 18 S; Pulse Ox 99% on R/A; Pain 0/10; jl7 08:46 BP 149 / 78; Pulse 88; Resp 16 S; Pulse Ox 100% on R/A; Pain 0/10; jl7 05:45 Body Mass Index 29.01 (94.35 kg, 180.34 cm) ao 06:30 Nitro drip increased to 10mcg/min, 3ml/hr jb4 06:50 Nitro drip increased 5mcg/min. total 15mcg/min. 4.5ml/hr jb4 ED Course: 05:34 Patient arrived in ED. al2 05:48 Miguel Weston MD is Attending Physician. tw4 05:53 Triage completed. ao 05:53 Power Mary RN is Primary Nurse. jb4 05:55 Inserted saline lock: 22 gauge in right antecubital area, using aseptic technique. ao Blood collected. 05:55 EKG done, by ED staff, reviewed by Miguel Weston MD. ao 05:57 X-ray completed. Portable x-ray completed in exam room. Patient tolerated procedure bb2 well. 05:58 Arm band placed on right wrist. Patient placed in an exam room, on a stretcher, on ao oxygen, on phototypesetting equipment monitor, on pulse oximetry. 06:00 XRAY Chest (1 view) In Process Unspecified. EDMS 06:03 Patient has correct armband on for positive identification. secured entrance monitor on. Pulse ao ox on. NIBP on. 07:07 Elvira Haskins MD is Hospitalizing Provider. tw4 07:22 Primary Nurse role handed off by Power Mary, RN jl7 07:22 Kee Dickey RN is Primary Nurse. jl7 12:57 No provider procedures requiring assistance completed. Patient admitted, IV remains in jl7 place. intact, No redness/swelling at site. Administered Medications: Discontinued: Nitro Drip - (Nitroglycerin 50 mg, D5W 250 ml) IV at 5 mcg/min continuous; titrate until desired hemodynamic response. 06:15 Drug: Nitro Drip - (Nitroglycerin 50 mg, D5W 250 ml) Route: IV; Rate: 5 mcg/min; Site: jb4 right antecubital; 07:10 Follow up: Response: No adverse reaction; IV Status: Order to discontinue infusion jl7 06:15 Drug: Lovenox 1 mg/kg Route: Sub-Q; Site: left lower abdomen; jb4 06:43 Follow up: Response: No adverse reaction jb4 06:22 Not Given (Pt took their own aspirin \T\ 0445 prior to comming to the ER): Aspirin jb4 Chewable Tablet 324 mg PO once; 81 mg tablets x 4 07:10 Drug: Nitro-Bid Ointment 2 % 1 inches Route: Transdermal; Site: anterior chest wall; jl7 11:35 Drug: Insulin Regular Human 10 units {Co-Signature: bp (Terrance Crain RN).} Route: IVP; jl7 Site: right antecubital; 12:31 Follow up: Response: Blood sugar is lowered jl7 Point of Care Testing: Blood Glucose: 07:20 Blood Glucose: 351 mg/dL; jl7 08:46 Blood Glucose: 329 mg/dL; jl7 Ranges: Outcome: 07:08 Decision to Hospitalize by Provider. tw4 12:57 Admitted to Tele accompanied by tech, via wheelchair, room 422, with chart, Report jl7 called to KURT El 12:57 Condition: stable 12:57 Discharge instructions given to patient, Instructed on the need for admit, Demonstrated understanding of instructions. 12:58 Patient left the ED. jl7 Signatures: Dispatcher [employer] David Cruz RN RN ao Bryson, James, RN RN jb4 Kee Dickey RN RN jl7 Haven Elkins Angelica al2 Wadley, Terrence, MD MD tw4 Terrance Crain RN bp Corrections: (The following items were deleted from the chart) 06:42 06:23 Cardiovascular: Heart tones S1 S2 present Patient's skin is warm and dry. Rhythm jb4 is sinus rhythm jb4 06:47 06:30 BP 164 / 74; Pulse 100bpm; Resp 14bpm; Pulse Ox 97% RA; Nitro drip increased to jb4 10mcg/min; jb4 08:49 08:48 Reassessment: Dr. Plummer at bedside discussing plan of care. jl7 jl
[2018-09-01] MEDS ORDERED: NITROGLYCERIN 1 GM PKT TD ONE (07:19)
--- NOTE | 2018-09-01 09:40 | EKG ---
Test Date: 2018-09-01 Test Time: 05:33:36 Stunner: KENDRA MEASUREMENT RESULTS: Intervals: Rate: 103 TX: 170 QRSD: 102 QT: 380 QTc: 497 Central: P: 73 TX: 170 QRS: -3 T: 60 INTERPRETIVE STATEMENTS: Sinus tachycardia Marked ST abnormality, possible inferior subendocardial injury Abnormal ECG Compared to ECG 03/28/2017 15:21:50 Sinus rhythm no longer present Prolonged QT interval no longer present ST (T wave) deviation still present Electronically Signed On 09-01-18 09:39:51 DIGITAL CONTENT COORDINATOR by Francisco Plummer
[2018-09-01] MEDS ORDERED: ONDANSETRON 4 MG/2 ML VIAL IV PRN (10:27)
[2018-09-01] MEDS ORDERED: ACETAMINOPHEN 500 MG TAB PO PRN (10:27)
--- NOTE | 2018-09-01 10:31 | CON ---
Brief History: Mr. Holm is 58. He had bypass surgery roughly 10 years ago. He has had another c ardiac cath since then. He did need a stent. He had one graft that was totally closed, there was no revascularization option. He has been dealing with stable angina for the past couple of years. He has been doing well, but this morning got much worse angina. It was associated with some blood sugar swings. He had a low blood sugar spell and stopped his insulin infusion and woke up at 4 in the [facility] with chest pain, blood sugars over 400. Chest pain is gone away with nitroglycerin. Past Medical History: His history is significant for diabetes, hypertension, dyslipidemia, coronary artery bypass surgery, and renal insufficiency. Medications: He takes rosuvastatin, insulin pump, aspirin at home. Social History: He never uses tobacco or illegal drugs, rare alcohol. Physical Examination: Vital Signs: Blood pressure 141/81, pulse 100, respirations 22, O2 saturation 96% on room air. Neck: No carotid bruit. Lungs: No crackles or wheeze. Heart: Regular rate and rhythm. No murmur or gallop. Abdomen: Soft. Extremities: A 1+ to 2+ pedal edema. Diagnostic Data: His creatinine is 1.9. Recommendations: I have recommended that we do a cardiac cath tomorrow. We will give him Mucomyst t gavi. If he is ready to put a stent in, perhaps the while swinging blood sugars as what has made him unstable instead of a new lesion in his heart, but I am very concerned that his bypass grafts are de teriorating. He may need to repeat surgery or a stent to save one of his grafts. He was pretty clos e to the graft dependent at his last heart catheterization. Thank you very much for kind referral of Mr. Holm. I will follow him with you. MIGUEL Voice ID: [id number] Report ID: [id number]
[2018-09-01] MEDS ORDERED: INSULIN -REGULAR HUMAN 50 UNIT/0.5 ML ML ONE (11:45)
--- NOTE | 2018-09-01 11:58 | RAD REPORT ---
EXAM DESCRIPTION: RAD - Chest Single View - 09/01/2018 5:59 am CLINICAL HISTORY: CHEST PAIN Chest pain. COMPARISON: CHEST SINGLE VIEW dated 05/22/2013; CHEST SINGLE VIEW dated 05/21/2013 FINDINGS: Portable technique limits examination quality. Mild linear atelectasis is present at the left lung base. Mild interstitial pulmonary edema is seen. The heart is normal in size. No displaced fractures.Sternotomy wires present. IMPRESSION: Mild interstitial pulmonary edema versus volume overload.
[2018-09-01 13:09] VITALS: BMI 28.4
[2018-09-01] MEDS ORDERED: D50W 25 GM/50 ML SYRINGE IV PRN (13:39)
[2018-09-01] MEDS ORDERED: GLUCAGON 1 MG/VIAL IM PRN (13:39)
--- NOTE | 2018-09-01 13:41 | P.HP ---
Certification for Inpatient Patient admitted to: Inpatient With expected LOS: >2 Midnights Patient will require the following post-hospital care: None Practitioner: I am a practitioner with admitting privileges, knowledge of patient current condition, hospital course, and medical plan of care. Services: Services provided to patient in accordance with Admission requirements found in Title 42 Section 412.3 of the Code of Federal Regulations Patient History Date of Service: 09/01/18 Reason for admission: Chest pain History of Present Illness: 58-year-old male with significant past medical history of high blood pressure, diabetes, hyperlipidemia, CAD, who presented to the ED complaining of having some chest pain while he was lifting heavy stuff into the house. Patient stated that after lifting heavy stuff in to the house he started having some shortness of breath and chest pain. Patient had had similar episode in the past where he had a cardiac catheterization done and stent placement at that time. Patient was decided to come to the ER for further workup. In the ER patient was found to have elevated troponin and nonspecific EKG changes along with fluctuating blood sugar. Patient thus was admitted to the hospital for further care. Allergies Penicillins Allergy (Severe, Verified 05/21/13 14:13) Anaphylaxis No Known Allergi Allergy (Uncoded 03/28/17 12:46) Unknown Home Medications: Amlodipine Besylate [Norvasc] 2.5 mg PO DAILY 03/28/17 Aspirin [Aspir-Low] 81 mg PO DAILY 03/28/17 Cholecalciferol (Vitamin D3) [Vitamin D3] 1 cap PO DAILY 03/28/17 Garlic 1 cap PO DAILY 03/28/17 Rosuvastatin Calcium 5 mg PO BEDTIME 03/28/17 Sodium Polystyrene Sulfon/Sorb [Sps 15 gm/60 ml Suspension] 4 tbsp PO SEECOM Carvedilol [Coreg*] 6.25 mg PO BID #60 tab 03/31/17 Ranolazine [Ranexa] 1,000 mg PO BID #60 03/31/17 - Past Medical/Surgical History Diabetic: Yes -: htn -: Chronic kidney disease -: DM1 on insulin pump 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 Nicole -: CAD status post bypass surgery -: Hyperlipidemia -: cardiac cath -: CABG 2 vessel disease -: Penile implant and subsequently removal -: Urethral repair -: Suprapubic catheter and subsequent removal - Family History Father History Unknown: Yes -: Heart disease - Social History Smoking Status: Never smoker Alcohol use: No CD- Drugs: No Caffeine use: Yes Place of Residence: Home Review of Systems 10-point ROS is otherwise unremarkable Physical Examination - Vital Signs Temperature: 97.0 F Blood Pressure: 151/69 Pulse: 91 Respirations: 20 Pulse Ox (%): 97 - Physical Exam General: Alert, In no apparent distress HEENT: Atraumatic, PERRLA, Mucous membr. moist/pink, EOMI, Sclerae nonicteric Neck: Supple, 2+ carotid pulse no bruit, No LAD, Without JVD or thyroid abnormality Respiratory: Clear to auscultation bilaterally, Normal air movement Cardiovascular: Regular rate/rhythm, Normal S1 S2 Gastrointestinal: Normal bowel sounds, No tenderness Musculoskeletal: No tenderness Integumentary: No rashes Neurological: Normal gait, Normal speech, Normal strength at 5/5 x4 extr, Normal tone, Normal affect Lymphatics: No axilla or inguinal lymphadenopathy - Studies Laboratory Data (last 24 hrs) 09/01/18 05:55: PT 11.3, INR 0.96 09/01/18 05:55: WBC 5.7, Hgb 13.8, Hct 40.4, Plt Count 194 09/01/18 05:55: Sodium 136, Potassium 4.4, BUN 27 H, Creatinine 1.90 H, Glucose 394 H, Magnesium 1.9, Total Bilirubin 0.5, AST 19, ALT 28, Alkaline Phosphatase 128 H Assessment and Plan - Problems (Diagnosis) (1) NSTEMI (non-ST elevated myocardial infarction) Current Visit: Yes Status: Acute Plan: NSTEMI with Elevated troponin and nonspecific EKG changes -cardiology consulted. Appreciated recommendations at this time -patient scheduled for cardiac catheterization tomorrow -will continue all ACS medication at this time (2) Hyperlipidemia Current Visit: Yes Status: Chronic Plan: Restart home medication Qualifiers: Hyperlipidemia type: mixed hyperlipidemia Qualified Code(s): E78.2 - Mixed hyperlipidemia (3) CAD (coronary artery disease) Onset Date: 03/29/17 Current Visit: No Status: Chronic Plan: Restart home medication Qualifiers: Coronary Disease-Associated Artery/Lesion type: [place] artery [place] vs. transplanted heart: [place] heart Associated angina: with unstable angina Qualified Code(s): I25.110 - Atherosclerotic heart disease of [place] coronary artery with unstable angina pectoris (4) Diabetes Onset Date: 03/29/17 Current Visit: No Status: Chronic Plan: Placed on insulin sliding scale Qualifiers: Diabetes mellitus type: type 2 Diabetes mellitus middle or intermediate school principal insulin use: without middle or intermediate school principal use Diabetes mellitus complication status: without complication Qualified Code(s): E11.9 - Type 2 diabetes mellitus without complications (5) HTN (hypertension) Onset Date: 03/29/17 Current Visit: No Status: Chronic Plan: Restart home medication Qualifiers: Hypertension type: essential hypertension - Plan Admit the patient to the regular floor for non ST segment elevated PA. cardiology to do cardiac catheterization Discharge Plan: Home Plan to discharge in: 72 Hours - Advance Directives Does patient have a Living Will: Yes Does patient have a Durable POA for Healthcare: Yes - Code Status/Comfort Care Code Status Assessed: Yes Critical Care: No
[2018-09-01] MEDS: NA CHLORIDE 0.9% 1,000 ML IV SCH ×2 (13:58→21:44)
[2018-09-01] MEDS: INSULIN -REGULAR HUMAN 50 UNIT/0.5 ML ML SQ SCH ×2 (16:34→21:42)
[2018-09-01] MEDS: ACETYLCYST 20% 800 MG/4 ML VIAL PO SCH (21:44)
[2018-09-02 05:17] LABS: Absolute Lymphocytes (CBC) 1.4 K/uL (0.7-4.9); Absolute Monocytes 0.6 K/uL (0.1-1.3); Absolute Neutrophil 2.7 K/uL (1.8-8.0); Basophils % 0.8 % (0-1.3); Hematocrit 36.7 % (39.6-49.0); Lymphocytes % 28.4 % (15.3-44.8); MCH 30.9 pg (27.0-35.0); MCV 90.5 fL (80-100); MPV 8.7 fL (7.6-11.3); Monocytes % 12.5 % (3.3-12.3); RBC Red Blood Cell Count 4.06 M/uL (4.33-5.43)
[2018-09-02 05:28] LABS: Urine Appearance CLEAR; Urine Bilirubin NEGATIVE (NEG); Urine Blood 2+ (NEG); Urine Color YELLOW; Urine Glucose 3+ (NEG); Urine Protein NEGATIVE (NEG); Urine Specific Gravity 1.015 (1.005-1.030); Urine Urobilinogen 0.2 mg/dL (0.2-1.0)
[2018-09-02 05:30] LABS: Albumin 3.2 g/dL (3.4-5.0); Bilirubin Total 0.6 mg/dL (0.2-1.0); Potassium 4.5 mmol/L (3.5-5.1); Protein, Total 6.4 g/dL (6.4-8.2)
[2018-09-02 05:31] LABS: Urine Microscopic Reflex ORDER UMIC
[2018-09-02 05:48] LABS: Urine Bacteria <20 /HPF (NONE SEEN); Urine Culture Reflex Order NOT NEEDED; Urine RBC 20-50 /HPF (NONE SEEN)
[2018-09-02] MEDS ORDERED: MORPHINE 2 MG/ML SYR IV PRN (06:51)
[2018-09-02] MEDS: NA CHLORIDE 0.9% 1,000 ML IV SCH (07:00)
[2018-09-02] MEDS ORDERED: HYDROMORPHONE HCL 0.5 MG/0.5 ML INJ IV ONE (07:01)
[2018-09-02] MEDS: INSULIN -REGULAR HUMAN 50 UNIT/0.5 ML ML SQ SCH ×3 (07:30→12:53)
[2018-09-02] MEDS ORDERED: NITROGLYCERIN 0.4 MG/TAB SL PRN (08:35)
[2018-09-02] MEDS ORDERED: NITROGLYCERIN 0.4 MG/TAB SL ONE (08:39)
[2018-09-02] MEDS ORDERED: INSULIN -REGULAR HUMAN 50 UNIT/0.5 ML ML ONE (08:55)
[2018-09-02] MEDS ORDERED: MIDAZOLAM HCL 2 MG/2 ML INJ ONE (08:57)
[2018-09-02] MEDS ORDERED: FENTANYL CITR 100 MCG/2 ML ONE (08:57)
[2018-09-02] MEDS ORDERED: METOPROLOL TARTRATE 5 MG/5 ML INJ IV ONE ×2 (08:58→09:51)
[2018-09-02] MEDS ORDERED: PRASUGREL (EFFIENT) 10 MG TAB ONE (09:50)
[2018-09-02] MEDS ORDERED: HEPA 1000U/500MLS 2,000 UNIT/1,000 ML BAG IV ONE (09:57)
[2018-09-02] MEDS ORDERED: NA CHLORIDE 0.9% 50 ML ONE (09:58)
[2018-09-02] MEDS ORDERED: METOPROLOL TAR 50 MG TAB ONE (09:59)
[2018-09-02] MEDS ORDERED: NA CHLORIDE 0.9% 1,000 ML IV SCH (11:00)
[2018-09-02] MEDS ORDERED: ACETAMINOPHEN 325 MG TABLET PO PRN (11:00)
--- NOTE | 2018-09-02 11:09 | OP ---
Surgeon: Francisco Plummer MD Procedure: Left heart catheterization, coronary angiography, saphenous vein graft angiography, left internal mammary artery angiography, percutaneous coronary angioplasty with a stent of the mid right coronary stenosis. It was more than 99% with thrombus and dissection, and after the procedure less t huerta 10% stenotic. Indication For The Procedure: Unstable angina. Procedure Findings: The patient has a patent left internal mammary that supplies the LAD with good b lood flow. No significant stenosis. He has a saphenous vein graft that goes to the diagonal artery with good flow. No significant stenosis. His LAD and circumflex are both totally occluded. There i s no graft that goes to the right coronary. The right coronary itself is a diffusely diseased large vessel both ectasia, calcification, and stenosis. In its mid section, there was a very tight area of 99 or more percent stenosis, JAYCE grade 1 flow. After stenting, that was less than 10% residual nancy nosis. The stent was a 3.0 x 16 Synergy post dilated with a 3.0 x 12 noncompliant balloon up to 20 a tmospheres. An Emerge noncompliant balloon was used. Procedure In Detail: The patient was brought to the cardiac animal laboratory technician fasting, sedated with Versed an d fentanyl, prepared and draped in usual sterile fashion. Right femoral approach was used. A 4-Fren ch sheath was placed in the right femoral artery. We used a JL4 to angiogram the left coronary, a JR 4 to angiogram right coronary; graft to the diagonal, saphenous vein and left internal mammary artery graft to the LAD, all using that catheter. We did not do an LV gram. We did measure LV pressures. There was no gradient. End-diastolic pressure appeared to be elevated around 18 to 20. After a dec ision was made that he needed a stent, we exchanged for a 6-[place] sheath. We initially tried a 3DRC with side holes. We were able to cross the lesion with the wire. We could not cross using a balloo n, so we exchanged the catheter. We withdrew the balloon, exchanged the guide catheter over the sonia nary guidewire. We were able to recannulate and the lesion remained cross with the initial Arianna wi re. We were then able to cross the lesion. We were able to deep throat the right coronary using mul tipurpose with side holes, 6-[place] and that gave us enough support to cross the lesion, dilated it. We pre-dilated up to 16 atmospheres. We were able to cross with a 3.0 x 16 Synergy stent, dilated t hat to 14 atmospheres and then post dilated at 20 atmospheres with an Emerge 3.0 x 12 balloon. At th e end of the procedure, the angiographic result was excellent. Symptoms resolved. Hemodynamically s table. Final pictures were taken. Wires, catheters, balloons were all removed and an angiogram was made of the right femoral artery using the sheath. Adequate anatomy was seen and we will close the a rteriotomy using an Angio-Seal device. Complications: From the procedure none. Estimated Blood Loss: 50 cc. Sorter/Assay Tech: Leelee Paris. JERONIMO/CARIN Voice ID: [id number] Report ID: [id number]
--- NOTE | 2018-09-02 15:13 | P.PN ---
Subjective Date of Service: 09/02/18 Chief Complaint: Chest pain Subjective: Tolerating diet, Ambulating, Improving, Working w/ PT, Doing well Review of Systems 10-point ROS is otherwise unremarkable Physical Examination - Vital Signs Temperature: 97.5 F Blood Pressure: 125/66 Pulse: 72 Respirations: 20 Pulse Ox (%): 96 - Physical Exam General: Alert, In no apparent distress HEENT: Atraumatic, PERRLA, EOMI Neck: Supple, JVD not distended Respiratory: Clear to auscultation bilaterally, Normal air movement Cardiovascular: Regular rate/rhythm, Normal S1 S2 Gastrointestinal: Normal bowel sounds, No tenderness Musculoskeletal: No tenderness Integumentary: No rashes Neurological: Normal speech, Normal tone, Normal affect Lymphatics: No axilla or inguinal lymphadenopathy - Studies Medications List Reviewed: Yes Assessment And Plan - Current Problems (Diagnosis) (1) NSTEMI (non-ST elevated myocardial infarction) Current Visit: Yes Status: Acute Plan: NSTEMI with Elevated troponin and nonspecific EKG changes -cardiology consulted. Appreciated recommendations at this time -S/p Cath today with Stent placement in the RCA -ACS meds with effient (2) Hyperlipidemia Current Visit: Yes Status: Chronic Plan: Restart home medication Qualifiers: Hyperlipidemia type: mixed hyperlipidemia Qualified Code(s): E78.2 - Mixed hyperlipidemia (3) CAD (coronary artery disease) Onset Date: 03/29/17 Current Visit: No Status: Chronic Plan: Restart home medication Qualifiers: Coronary Disease-Associated Artery/Lesion type: [place] artery [place] vs. transplanted heart: [place] heart Associated angina: with unstable angina Qualified Code(s): I25.110 - Atherosclerotic heart disease of [place] coronary artery with unstable angina pectoris (4) Diabetes Onset Date: 03/29/17 Current Visit: No Status: Chronic Plan: Placed on insulin sliding scale Qualifiers: Diabetes mellitus type: type 2 Diabetes mellitus fpc insulin use: without oil heaterman use Diabetes mellitus complication status: without complication Qualified Code(s): E11.9 - Type 2 diabetes mellitus without complications (5) HTN (hypertension) Onset Date: 03/29/17 Current Visit: No Status: Chronic Plan: Restart home medication Qualifiers: Hypertension type: essential hypertension - Plan Pending clinical improvement. Discharge Plan: Home Plan to discharge in: 48 Hours - Code Status/Comfort Care Code Status Assessed: Yes Critical Care: No
[2018-09-02] MEDS ORDERED: INSULIN -REGULAR HUMAN 50 UNIT/0.5 ML ML SQ SCH (16:04)
[2018-09-02] MEDS: METOPROLOL XL 50 MG TAB PO SCH (18:13)
[2018-09-02] MEDS ORDERED: ROSUVASTATIN 10 MG TAB PO SCH (21:00)
[2018-09-02] MEDS: ACETYLCYST 20% 800 MG/4 ML VIAL PO SCH ×2 (21:33)
[2018-09-03 03:26] VITALS: O2SAT 93
[2018-09-03 06:08] LABS: MCH 30.8 pg (27.0-35.0); MCV 89.3 fL (80-100); MPV 8.6 fL (7.6-11.3); RBC Red Blood Cell Count 4.25 M/uL (4.33-5.43)
[2018-09-03 06:14] LABS: Potassium 4.1 mmol/L (3.5-5.1)
[2018-09-03] MEDS ORDERED: PANTOPRAZOLE 40MG TABLET PO SCH (06:30)
[2018-09-03] MEDS: METOPROLOL XL 50 MG TAB PO SCH (06:38)
[2018-09-03] MEDS ORDERED: ASPIRIN 81 MG CHEWABLE TABLET PO SCH (09:00)
[2018-09-03] MEDS ORDERED: PRASUGREL (EFFIENT) 10 MG TAB PO SCH (09:00)
[2018-09-03] MEDS ORDERED: AMLODIPINE 2.5 MG TAB PO SCH (09:00)
[2018-09-03] MEDS: ACETYLCYST 20% 800 MG/4 ML VIAL PO SCH (09:00)
--- NOTE | 2018-09-03 09:07 | PN ---
Mr. Holm had a stent placed in his right coronary. He is asymptomatic. His arterial access site looks good. No hematoma or swelling or bleeding. No thrill. No pain. I think he is ready to be di scharged to home. He can stop his Ranexa. He will be on prasugrel or Effient 10 mg a day, Crestor 4 0 mg a day. We will continue his metoprolol, amlodipine, insulin drip, and p.r.n. insulin scale as ling byrnes did previously. I have asked him to call our office 2 days from now to schedule an appointment eileen etime within the next month. MIGUEL Voice ID: [id number] Report ID: [id number]
[2018-09-03 09:11] VITALS: BP 118/50; TEMP 97.6
--- NOTE | 2018-09-03 15:25 | P.DS ---
Admission Date: 09/01/18 Discharge Date: 09/03/18 Disposition: ROUTINE DISCHARGE Discharge Condition: GOOD Reason for Admission: Chest pain Consultations: Cardiology Procedures: Cardiac catheterization with stent placement in the RCA - Problems (1) NSTEMI (non-ST elevated myocardial infarction) Status: Acute (2) Hyperlipidemia Status: Chronic Qualifiers: Hyperlipidemia type: mixed hyperlipidemia Qualified Code(s): E78.2 - Mixed hyperlipidemia (3) CAD (coronary artery disease) Onset Date: 03/29/17 Status: Chronic Qualifiers: Coronary Disease-Associated Artery/Lesion type: [place] artery [place] vs. transplanted heart: [place] heart Associated angina: with unstable angina Qualified Code(s): I25.110 - Atherosclerotic heart disease of [place] coronary artery with unstable angina pectoris (4) Diabetes Onset Date: 03/29/17 Status: Chronic Qualifiers: Diabetes mellitus type: type 2 Diabetes mellitus care home insulin use: without manager of change use Diabetes mellitus complication status: without complication Qualified Code(s): E11.9 - Type 2 diabetes mellitus without complications (5) HTN (hypertension) Onset Date: 03/29/17 Status: Chronic Qualifiers: Hypertension type: essential hypertension Brief History of Present Illness: 58-year-old male with significant past medical history of high blood pressure, diabetes, hyperlipidemia, CAD, who presented to the ED complaining of having some chest pain while he was lifting heavy stuff into the house. Patient stated that after lifting heavy stuff in to the house he started having some shortness of breath and chest pain. Patient had had similar episode in the past where he had a cardiac catheterization done and stent placement at that time. Patient was decided to come to the ER for further workup. In the ER patient was found to have elevated troponin and nonspecific EKG changes along with fluctuating blood sugar. Patient thus was admitted to the hospital for further care. Hospital Course: Overall during the hospital stay patient remained stable Patient was initially admitted to the hospital for chest pain most likely secondary to non ST elevation RI. Cardiology was consulted. Patient was taken to the cardiac catheterization. Patient was found to have occlusion RCA which was stented at that time. Patient then was transferred to the regular floor and was continued on medication that he takes at home plus Effient. Patient's chest pain resolved after the cardiac catheterization and stent placement and thus patient was discharged home under stable condition. Please refer to the cardiac catheterization report for more details on the cardiac catheterization and the exclusion of the arteries. Patient was discharged home under stable condition was asked to follow up with cardiology in about 1-2 days post discharge and primary care provider in about 1-2 days post discharge as well. Vital Signs/Physical Exam: Temp Pulse Resp BP Pulse Ox 97.6 F 65 18 118/50 L 97 09/03/18 08:00 09/03/18 10:12 09/03/18 08:00 09/03/18 10:12 09/03/18 08:00 General: Alert, In no apparent distress HEENT: Atraumatic, PERRLA, EOMI Neck: Supple, JVD not distended Respiratory: Clear to auscultation bilaterally, Normal air movement Cardiovascular: Regular rate/rhythm, Normal S1 S2 Gastrointestinal: Normal bowel sounds, No tenderness Musculoskeletal: No tenderness Integumentary: No rashes Neurological: Normal speech, Normal tone, Normal affect Lymphatics: No axilla or inguinal lymphadenopathy Laboratory Data at Discharge: WBC 7.2 K/uL (4.3-10.9) D 09/03/18 05:04 Hgb 13.1 g/dL (13.6-17.9) L 09/03/18 05:04 Hct 38.0 % (39.6-49.0) L 09/03/18 05:04 Plt Count 187 K/uL (152-406) 09/03/18 05:04 PT 11.3 SECONDS (9.5-12.5) 09/01/18 05:55 INR 0.96 09/01/18 05:55 Sodium 139 mmol/L (136-145) 09/03/18 05:04 Potassium 4.1 mmol/L (3.5-5.1) 09/03/18 05:04 BUN 29 mg/dL (7-18) H 09/03/18 05:04 Creatinine 1.70 mg/dL (0.55-1.3) H 09/03/18 05:04 Glucose 108 mg/dL (74-106) H 09/03/18 05:04 Phosphorus Cancelled 09/02/18 05:00 Magnesium 1.9 mg/dL (1.8-2.4) 09/01/18 05:55 Total Bilirubin 0.6 mg/dL (0.2-1.0) 09/02/18 04:28 AST 25 U/L (15-37) 09/02/18 04:28 ALT 25 U/L (12-78) 09/02/18 04:28 Alkaline Phosphatase 98 U/L (45-117) 09/02/18 04:28 Troponin I 4.61 ng/mL (0.0-0.045) H* 09/02/18 02:31 Home Medications: Aspirin 81 mg PO DAILY 09/01/18 Omeprazole 20 mg PO DAILY 09/01/18 Vit D3/Folic Acid/B2/B6/B12 [Folgard Tablet] 1 each PO DAILY 09/01/18 Amlodipine [Norvasc*] 2.5 mg PO DAILY tab 09/03/18 Aspirin Chewable [Aspirin Chewable*] 81 mg PO DAILY tab.chew 09/03/18 Metoprolol Succinate [Toprol Xl*] 50 mg PO BID 6AM 6PM tab 09/03/18 Nitroglycerin [Nitrostat*] 0.4 mg SL UD PRN tab 09/03/18 Prasugrel Hydrochloride [Effient*] 10 mg PO DAILY #30 tab 09/03/18 Rosuvastatin [Crestor*] 40 mg PO BEDTIME #30 tab 09/03/18 New Medications: Prasugrel Hydrochloride [Effient*] 10 mg PO DAILY #30 tab Rosuvastatin [Crestor*] 40 mg PO BEDTIME #30 tab Diet: Regular Activity: Ad kendra Followup: Francisco Plummer MD [ACTIVE - CAN ADMIT] - 1-2 Weeks (Call to schedule an appointment)
== END 2018-09-03 11:25 | disposition home or self-care (01) | DRG 247 ==
LOC: ER 05:33 → ERHOLD 07:20 → 4TH 12:26
PROVIDERS: ADMIT Family Medicine; ATTEND Family Medicine
PROC: 027034Z Dilation of Coronary Artery, One Artery with Drug-eluting Intraluminal Device, Percutaneous Approach (ICD-10-PCS; principal; 2018-09-02)
PROC: 4A023N7 Measurement of Cardiac Sampling and Pressure, Left Heart, Percutaneous Approach (ICD-10-PCS; 2018-09-02)
PROC: B2111ZZ Fluoroscopy of Multiple Coronary Arteries using Low Osmolar Contrast (ICD-10-PCS; 2018-09-02)
PROC: B2131ZZ Fluoroscopy of Multiple Coronary Artery Bypass Grafts using Low Osmolar Contrast (ICD-10-PCS; 2018-09-02)
PROC: B2181ZZ Fluoroscopy of Left Internal Mammary Bypass Graft using Low Osmolar Contrast (ICD-10-PCS; 2018-09-02)
DX: I21.4 Non-ST elevation (NSTEMI) myocardial infarction (principal); I25.110 Atherosclerotic heart disease of native coronary artery with unstable angina pectoris; I25.84 Coronary atherosclerosis due to calcified coronary lesion; E78.2 Mixed hyperlipidemia; E10.9 Type 1 diabetes mellitus without complications; I12.9 Hypertensive chronic kidney disease with stage 1 through stage 4 chronic kidney disease, or unspecified chronic kidney disease; E10.22 Type 1 diabetes mellitus with diabetic chronic kidney disease; N18.9 Chronic kidney disease, unspecified; Z96.41 Presence of insulin pump (external) (internal); Z79.4 Long term (current) use of insulin; Z79.82 Long term (current) use of aspirin; Z88.0 Allergy status to penicillin; Z95.1 Presence of aortocoronary bypass graft
CPT/HCPCS: 36415; 71045; 80048; 80053; 80076; 81003; 81015; 82962; 83735; 83880; 84100; 84484; 85025; 85027; 85347; 85610; 92928; 93005; 93458; 96365; 96372; 96375; 99285; C1725; C1760; C1893; J0583; J1170; J1650; J2250; J3010; J7030

== ENCOUNTER 2019-03-29 07:52 | Day surgery (SDC) | payer BC ==
--- NOTE | 2019-03-28 14:17 | RAD REPORT ---
EXAM DESCRIPTION: RAD - Chest Pa And Lat (2 Views) - 03/28/2019 2:03 pm CLINICAL HISTORY: Preop chest, pending cardiac catheterization COMPARISON: August 2018 TECHNIQUE: PA and lateral views of the chest were obtained. FINDINGS: The lungs are clear of failure, infiltrate or mass. Lung markings are similar or less prom inent than seen on the comparison. Sternotomy wires are in place. Heart size is normal and central vasculature is within normal limits. No pleural effusion or pneumothorax seen. No acute bony findin g noted. No aortic abnormality. IMPRESSION: No acute cardiopulmonary process. No significant change from comparison.
[2019-03-28 14:27] LABS: Absolute Lymphocytes (CBC) 1.7 K/uL (0.7-4.9); Basophils % 0.8 % (0-1.3); Eosinophils % 4.1 % (0-4.4); Hematocrit 39.1 % (39.6-49.0); Lymphocytes % 32.9 % (15.3-44.8); MPV 9.5 fL (7.6-11.3); Monocytes % 10.4 % (3.3-12.3)
[2019-03-28 14:30] LABS: Protime INR 1.02
--- OUTSIDE RECORDS SUMMARY | 2019-03-29 07:54 | XMS REPORT | Clinical Summary ---
:1960 Author Organization [facility] Address [address] [place] [id number] Care Team Providers Name Role Phone Daniel [...] Health Maintenance Due Date Last Done Comments COLONOSCOPY SCREENING 2009 SHINGLES VACCINES (#1) 2009 INFLUENZA VACCINE 05/11/2019 Implants Implanted Type Area Care Partner Device Shelf Model / Identifier Expiration Serial / Date Lot Skw Deep Scrotal Retract System - [id number] SUPPLIES N/A: BURMESE [id number] / Implanted: Qty: 1 on 04/17/2016 by Cesar Harding MD PATIENT Penis MEDICAL / BILLABLE SYSTEMS- AMS Spectra Rear Tip Extenders 12mm & 14mm-3cm - [id number] SUPPLIES N/A: N/A BURMESE 03/05/2021 [id number] / Implanted: Qty: 1 on 04/17/2016 by Cesar Harding MD PATIENT MEDICAL / NON-BILLABLE SYSTEMS- AMS [id number] Injectables Injectables Kit Accy Infltbl Penile Ams 700 - [id number] Urological N/A: BURMESE 02/13 [id number] / Implanted: Qty: 1 on 04/17/2016 by Cesar Harding MD Implants or Penis MEDICAL / Sets [employer] [id number] Implant Penile Ams 700 Lgx Ms Prcnctd Pnscrtl Aprch 18cm - [id number] Urological N/A: BURMESE 02/04/2018 [id number] / Implanted: Qty: 1 on 04/17/2016 by Cesar Harding MD Implants or Penis MEDICAL / Sets [employer] [id number] Implant Penile Rsvr Ams 700 Ms Prcnctd W/ Iz 100ml - [id number] Urological N/A : BURMESE 09/03/2017 [id number] / Implanted: Qty: 1 on 04/17/2016 by Cesar Harding MD Implants or Penis MEDICAL / Sets [employer] [id number] Insulin Pump Results Not on fileafter 03/28/2018 Advance Directives Patient has advance care planning documents on file. For more information, please contact:[place] [address]
--- OUTSIDE RECORDS SUMMARY | 2019-03-29 07:54 | XMS REPORT | Clinical Summary ---
:1960 Author Organization [facility] Address [address] [place] [address] Care Team Providers Name Role Phone Radha Daniel Bruce Primary Care Provider Allergies Active Allergy Reactions Severity Noted Date Comments Sulfamethoxazole-Trimethoprim Nausea And Vomiting 03/21/2019 Levofloxacin Nausea And Vomiting 03/21/2019 Medications Medication Sig Dispensed Refills Start End Date Status Date rosuvastatin Take 40 mg by mouth 0 Active (CRESTOR) 5 MG nightly . tablet aspirin 81 MG EC Take 81 mg by mouth 0 Active tablet daily. ERGOCALCIFEROL, Take 2,000 Units by 0 Active VITAMIN D2, mouth daily . (VITAMIN D2 ORAL) valsartan (DIOVAN) Take 80 mg by mouth 0 03/21/20 Discontinued 80 MG tablet daily. 19 ranolazine Take 500 mg by 0 03/21/20 Discontinued (RANEXA) 500 MG 12 mouth 2 (two) times 19 hr tablet daily. amoxicillin Take 500 mg by 0 03/21/20 Discontinued (AMOXIL) 500 MG mouth 3 (three) 19 capsule times daily. metoprolol Take 25 mg by mouth 0 03/27/20 Discontinued (LOPRESSOR) 25 MG 2 (two) times 19 tablet daily. prasugrel Take 10 mg by mouth 0 03/27/20 Discontinued (EFFIENT) 10 mg daily. 19 Tab tablet senna (SENOKOT) Take 1 tablet by 0 03/27/20 Discontinued 8.6 mg tablet mouth daily. [address] 0.4 mg under 0 03/27/20 Discontinued (NITROSTAT) 0.4 MG the tongue every 5 19 SL tablet (five) minutes as needed for Chest pain Put 1 pill under tongue every 5min as needed for chest pain.No more than 3 doses in 15min.Call 911 if pain is unrelieved 5min after 1st dose . insulin lispro Inject 0 03/27/20 Discontinued (HUMALOG) 100 subcutaneously 19 unit/mL injection Continuous via insulin pump . Active Problems Problem Noted Date Urethral stricture 12/10/2016 Encounters Date Type Specialty Care Team Description 03/21/2019 Hospital Encounter Pre-Admission Testing Resource, Oqmt Preadmit Phone after 03/28/2018 Social History Tobacco Use Types Packs/Day Years Used Date Never Smoker Smokeless Tobacco: Never Used Alcohol Use Drinks/Week oz/Week Comments No Sex Assigned at Date Recorded Not on file Job Start Date Occupation Industry Not on file Not on file Not on file Travel History Travel Start Travel End No recent travel history available. Last Filed Vital Signs Vital Sign Reading Time Taken Blood Pressure - - Pulse - - Temperature - - Respiratory Rate - - Oxygen Saturation - - Inhaled Oxygen Concentration - - Weight 95.3 kg (210 lb) 03/21/2019 9:49 AM CDT Height 181.6 cm (5' 11.5") 03/21/2019 9:49 AM CDT Body Mass Index 28.88 03/21/2019 9:49 AM CDT Plan of Treatment Not on file Results Not on fileafter 03/28/2018 Insurance Payer Benefit Plan / Subscriber ID Type Phone Address Group BLUE CROSS/BLUE BCBS HMO xxxxxxxxxxxx HMO/POS [phone] [address] [employer] [address] Advance Directives For more information, please contact:[address] [phone] Code Status Date Activated Date Inactivated Comments Full Code 12/10/2016 4:04 PM 12/11/2016 3:02 PM This code status was determined by: Patient
--- OUTSIDE RECORDS SUMMARY | 2019-03-29 07:55 | XMS REPORT ---
:1960 Author Organization [facility] Address [address] [place] [address] Care Team Providers Name Role Phone ARIELLA FANGPIE Unavailable Unavailable Problems This patient has no known problems. Allergies, Adverse Reactions, Alerts This patient has no known allergies or adverse reactions. Medications This patient has no known medications. Results Test Description Test Time Test Comments Text Results Atomic Results Result Comments HEMOGLOBIN AND HEMATOCRIT 2016-12-11 09:24:00 Test Item Value Reference Range Comments HEMOGLOBIN (BEAKER) (test objh=419) 9.8 GM/DL 13.0-16.8 HEMATOCRIT (BEAKER) (test ypuq=255) 29.7 % 40.0-50.0 POCT-GLUCOSE [id number] 08:04:00 Test Item Value Reference Range Comments POC-GLUCOSE METER (BEAKER) 59 mg/dL 70-110 TESTED AT [facility] [address] [facility] (test nxzg=7512) [facility] [address] BASIC METABOLIC [id number] 06:07:00 Test Item Value Reference Range Comments SODIUM (BEAKER) (test 140 meq/L 136-145 anyn=859) POTASSIUM (BEAKER) (test 4.2 meq/L 3.5-5.1 dftg=030) CHLORIDE (BEAKER) (test 114 meq/L 98-107 ahwn=560) CO2 (BEAKER) (test 20 meq/L 22-29 ntle=746) BLOOD UREA NITROGEN 16 mg/dL 7-21 (BEAKER) (test wwkh=534) CREATININE (BEAKER) (test 1.23 mg/dL 0.57-1.25 ukfb=627) GLUCOSE RANDOM (BEAKER) 93 mg/dL 70-105 (test cmwr=766) CALCIUM (BEAKER) (test 6.8 mg/dL 8.4-10.2 slqi=381) EGFR (BEAKER) (test 61 mL/min/1.73 sq m ESTIMATED GFR IS NOT cibt=2810) ACCURATE CREATININE CLEARANCE IN PREDICTING GLOMERULAR FILTRATION RATE. ESTIMATED GFR IS NOT APPLICABLE FOR DIALYSIS PATIENTS. POCT-GLUCOSE [id number] 22:08:00 Test Item Value Reference Range Comments POC-GLUCOSE METER (BEAKER) 200 mg/dL 70-110 TESTED AT [address] (test ndhq=2720) [facility] [address] POCT-GLUCOSE [id number] 17:00:00 Test Item Value Reference Range Comments POC-GLUCOSE METER (BEAKER) 289 mg/dL 70-110 TESTED AT [address] (test tukr=1377) [place] [id number] BASIC METABOLIC [id number] 14:43:00 Test Item Value Reference Range Comments SODIUM (BEAKER) (test 141 meq/L 136-145 yakz=713) POTASSIUM (BEAKER) (test 4.1 meq/L 3.5-5.1 nysk=060) CHLORIDE (BEAKER) (test 116 meq/L 98-107 rqju=378) CO2 (BEAKER) (test 17 meq/L 22-29 xafr=587) BLOOD UREA NITROGEN 31 mg/dL 7-21 (BEAKER) (test pksh=937) CREATININE (BEAKER) (test 1.66 mg/dL 0.57-1.25 cqwb=181) GLUCOSE RANDOM (BEAKER) 261 mg/dL 70-105 (test uwiq=328) CALCIUM (BEAKER) (test 7.3 mg/dL 8.4-10.2 osdm=641) EGFR (BEAKER) (test 43 mL/min/1.73 sq m ESTIMATED GFR IS NOT zfuj=2903) ACCURATE CREATININE CLEARANCE IN PREDICTING GLOMERULAR FILTRATION RATE. ESTIMATED GFR IS NOT APPLICABLE FOR DIALYSIS PATIENTS. HEMOGLOBIN AND [id number] 14:32:00 Test Item Value Reference Range Comments HEMOGLOBIN (BEAKER) (test telw=526) 10.0 GM/DL 13.0-16.8 HEMATOCRIT (BEAKER) (test udbn=743) 28.4 % 40.0-50.0 POCT-GLUCOSE [id number] 13:51:00 Test Item Value Reference Range Comments POC-GLUCOSE METER (BEAKER) 282 mg/dL 70-110 TESTED AT [address] (test wgqp=6219) [facility] [address] SODIUM NA-STAT [id number] 13:16:00 Test Item Value Reference Range Comments SODIUM (BEAKER) (test dcfm=037) 137 meq/L 135-148 POTASSIUM-STAT [id number] 13:16:00 Test Item Value Reference Range Comments POTASSIUM (BEAKER) (test vtmc=434) 4.1 meq/L 3.6-5.5 BLOOD GAS, [id number] 13:16:00 Test Item Value Reference Range Comments PH ARTERIAL (BEAKER) (test xmem=164) 7.32 7.35-7.45 PCO2 ARTERIAL (BEAKER) (test whph=969) 36 mmHg 35-45 PO2 ARTERIAL (BEAKER) (test hccq=300) 521 mmHg 80-90 O2 SATURATION ARTERIAL (BEAKER) (test gvap=945) 99.9 % 96.0-97.0 HCO3 ARTERIAL (BEAKER) (test izvi=562) 18 mmol/L 21-29 BASE EXCESS ARTERIAL (BEAKER) (test waez=549) -7.0 mmol/L -2.0-3.0 PATIENT TEMPERATURE (BEAKER) (test jdtu=3987) 37.0 C FIO2 (BEAKER) (test tkfd=7141) 100.0 % GLUCOSE-STAT [id number] 13:16:00 Test Item Value Reference Range Comments GLUCOSE RANDOM (BEAKER) (test ccrd=955) 295 mg/dL 70-110 HGB/HCT (H&H) - STAT [id number] 13:16:00 Test Item Value Reference Range Comments HEMOGLOBIN (BEAKER) (test vxzi=653) 9.9 g/dL 13.0-16.8 HEMATOCRIT (BEAKER) (test brnm=551) 29.0 % 40.0-50.0 CALCIUM, [id number] 13:16:00 Test Item Value Reference Range Comments CALCIUM IONIZED (BEAKER) (test yrdi=397) 1.04 mmol/L 1.12-1.27 PH, BLOOD (BEAKER) (test vnlj=1805) 7.32 BLOOD GAS, [id number] 12:22:00 Test Item Value Reference Range Comments PH ARTERIAL (BEAKER) (test dgkp=674) 7.33 7.35-7.45 PCO2 ARTERIAL (BEAKER) (test iljs=472) 31 mmHg 35-45 PO2 ARTERIAL (BEAKER) (test tayj=531) 259 mmHg 80-90 O2 SATURATION ARTERIAL (BEAKER) (test dexb=728) 99.6 % 96.0-97.0 HCO3 ARTERIAL (BEAKER) (test owwv=099) 16 mmol/L 21-29 BASE EXCESS ARTERIAL (BEAKER) (test wnwh=840) -9.4 mmol/L -2.0-3.0 PATIENT TEMPERATURE (BEAKER) (test dpej=3117) 37.0 C FIO2 (BEAKER) (test wzdr=1199) 21.0 % GLUCOSE-STAT [id number] 12:22:00 Test Item Value Reference Range Comments GLUCOSE RANDOM (BEAKER) (test vzqi=186) 322 mg/dL 70-110 HGB/HCT (H&H) - STAT [id number] 12:22:00 Test Item Value Reference Range Comments HEMOGLOBIN (BEAKER) (test yhpd=519) 9.7 g/dL 13.0-16.8 HEMATOCRIT (BEAKER) (test elfj=430) 29.0 % 40.0-50.0 CALCIUM, [id number] 12:22:00 Test Item Value Reference Range Comments CALCIUM IONIZED (BEAKER) (test suhx=949) 0.99 mmol/L 1.12-1.27 PH, BLOOD (BEAKER) (test kpxg=8435) 7.33 SODIUM NA-STAT [id number] 12:18:00 Test Item Value Reference Range Comments SODIUM (BEAKER) (test aanl=427) 136 meq/L 135-148 POTASSIUM-STAT [id number] 12:18:00 Test Item Value Reference Range Comments POTASSIUM (BEAKER) (test lubs=229) 4.4 meq/L 3.6-5.5 BLOOD GAS, [id number] 11:22:00 Test Item Value Reference Range Comments PH ARTERIAL (BEAKER) (test pddc=690) 7.35 7.35-7.45 PCO2 ARTERIAL (BEAKER) (test gvij=449) 33 mmHg 35-45 PO2 ARTERIAL (BEAKER) (test wzaf=740) 312 mmHg 80-90 O2 SATURATION ARTERIAL (BEAKER) (test suzx=308) 99.7 % 96.0-97.0 HCO3 ARTERIAL (BEAKER) (test wqco=729) 17 mmol/L 21-29 BASE EXCESS ARTERIAL (BEAKER) (test cvri=970) -7.4 mmol/L -2.0-3.0 PATIENT TEMPERATURE (BEAKER) (test lsgf=0483) 37.0 C FIO2 (BEAKER) (test zmcr=4557) 21.0 % GLUCOSE-STAT [id number] 11:22:00 Test Item Value Reference Range Comments GLUCOSE RANDOM (BEAKER) (test iaul=560) 352 mg/dL 70-110 HGB/HCT (H&H) - STAT [id number] 11:22:00 Test Item Value Reference Range Comments HEMOGLOBIN (BEAKER) (test vfvq=645) 10.4 g/dL 13.0-16.8 HEMATOCRIT (BEAKER) (test lmms=367) 31.0 % 40.0-50.0 CALCIUM, [id number] 11:22:00 Test Item Value Reference Range Comments CALCIUM IONIZED (BEAKER) (test qakj=876) 1.03 mmol/L 1.12-1.27 PH, BLOOD (BEAKER) (test bnqe=4148) 7.35 SODIUM NA-STAT [id number] 11:21:00 Test Item Value Reference Range Comments SODIUM (BEAKER) (test wfty=491) 136 meq/L 135-148 POTASSIUM-STAT [id number] 11:21:00 Test Item Value Reference Range Comments POTASSIUM (BEAKER) (test sryy=772) 5.4 meq/L 3.6-5.5 SODIUM NA-STAT [id number] 08:47:00 Test Item Value Reference Range Comments SODIUM (BEAKER) (test vbaj=181) 135 meq/L 135-148 POTASSIUM-STAT [id number] 08:47:00 Test Item Value Reference Range Comments POTASSIUM (BEAKER) (test dxjj=793) 4.4 meq/L 3.6-5.5 BLOOD GAS, [id number] 08:47:00 Test Item Value Reference Range Comments PH ARTERIAL (BEAKER) (test mcwq=416) 7.39 7.35-7.45 PCO2 ARTERIAL (BEAKER) (test qgcy=658) 35 mmHg 35-45 PO2 ARTERIAL (BEAKER) (test acem=685) 261 mmHg 80-90 O2 SATURATION ARTERIAL (BEAKER) (test mzws=792) 99.6 % 96.0-97.0 HCO3 ARTERIAL (BEAKER) (test pnye=641) 21 mmol/L 21-29 BASE EXCESS ARTERIAL (BEAKER) (test yqti=391) -4.0 mmol/L -2.0-3.0 PATIENT TEMPERATURE (BEAKER) (test ebzy=1114) 37.0 C FIO2 (BEAKER) (test cvcm=2037) 100.0 % GLUCOSE-STAT [id number] 08:47:00 Test Item Value Reference Range Comments GLUCOSE RANDOM (BEAKER) (test uqfm=412) 183 mg/dL 70-110 HGB/HCT (H&H) - STAT [id number] 08:47:00 Test Item Value Reference Range Comments HEMOGLOBIN (BEAKER) (test srzp=889) 10.5 g/dL 13.0-16.8 HEMATOCRIT (BEAKER) (test nion=012) 31.0 % 40.0-50.0 CALCIUM, [id number] 08:47:00 Test Item Value Reference Range Comments CALCIUM IONIZED (BEAKER) (test cahr=091) 1.06 mmol/L 1.12-1.27 PH, BLOOD (BEAKER) (test ivvs=0642) 7.39 [id number] 06:53:00 Test Item Value Reference Range Comments POTASSIUM (BEAKER) (test oeni=845) 4.9 meq/L 3.6-5.5 POCT-GLUCOSE [id number] 06:45:00 Test Item Value Reference Range Comments POC-GLUCOSE METER (BEAKER) 208 mg/dL 70-110 TESTED AT [address] (test vqtk=7455) [facility] [address] URINE [id number] 12:35:00 Test Item Value Reference Range Comments CULTURE (BEAKER) (test ENTEROCOCCUS SPECIES >100,000 col/mL dcfx=3618) Enterococcus species Ampicillin (test Susceptible >=17 , code=26) Resistant <17 Linezolid (test Susceptible >=23 , code=40) Resistant <23 Nitrofurantoin (test Susceptible >=17 , code=23) Resistant <17 Tetracycline (test Susceptible >=19 , code=2) Resistant <19 Vancomycin (test code=13) CBC W/PLT COUNT & AUTO [id number] 11:52:00 Test Item Value Reference Range Comments WHITE BLOOD CELL COUNT (BEAKER) (test lkod=835) 5.6 K/ L 4.0-10.0 RED BLOOD CELL COUNT (BEAKER) (test nhnp=261) 4.27 M/ L 4.20-5.80 HEMOGLOBIN (BEAKER) (test tayy=521) 13.5 GM/DL 13.0-16.8 HEMATOCRIT (BEAKER) (test kmex=435) 40.3 % 40.0-50.0 MEAN CORPUSCULAR VOLUME (BEAKER) (test aqpd=408) 94.3 fL 82.0-98.0 MEAN CORPUSCULAR HEMOGLOBIN (BEAKER) (test 31.6 pg 27.0-33.0 eyab=455) MEAN CORPUSCULAR HEMOGLOBIN CONC (BEAKER) (test 33.5 GM/DL 32.0-36.0 pflc=265) RED CELL DISTRIBUTION WIDTH (BEAKER) (test 12.4 % 10.3-14.2 nadf=648) PLATELET COUNT (BEAKER) (test qtwi=797) 205 K/CU MM 150-430 MEAN PLATELET VOLUME (BEAKER) (test eiiv=556) 7.6 fL 6.5-10.5 NUCLEATED RED BLOOD CELLS (BEAKER) (test 0 /100 WBC 0-0 crmp=254) NEUTROPHILS RELATIVE PERCENT (BEAKER) (test 47 % skpr=796) LYMPHOCYTES RELATIVE PERCENT (BEAKER) (test 37 % kiec=951) MONOCYTES RELATIVE PERCENT (BEAKER) (test 11 % rrfq=523) EOSINOPHILS RELATIVE PERCENT (BEAKER) (test 5 % klbm=621) BASOPHILS RELATIVE PERCENT (BEAKER) (test 1 % rdjz=207) NEUTROPHILS ABSOLUTE COUNT (BEAKER) (test 2.60 K/ L 1.80-8.00 imem=335) LYMPHOCYTES ABSOLUTE COUNT (BEAKER) (test 2.08 K/ L 1.48-4.50 xsme=175) MONOCYTES ABSOLUTE COUNT (BEAKER) (test 0.61 K/ L 0.00-1.30 niep=591) EOSINOPHILS ABSOLUTE COUNT (BEAKER) (test 0.26 K/ L 0.00-0.50 jmkm=073) BASOPHILS ABSOLUTE COUNT (BEAKER) (test 0.04 K/ L 0.00-0.20 egyw=983) 0.00COMPREHENSIVE METABOLIC [id number] 11:47:00 Test Item Value Reference Range Comments TOTAL PROTEIN (BEAKER) 7.4 gm/dL 6.0-8.3 Specimen slightly (test gsge=618) hemolyzed ALBUMIN (BEAKER) (test 4.1 g/dL 3.5-5.0 Specimen slightly undh=4571) hemolyzed ALKALINE PHOSPHATASE 119 U/L 40-150 (BEAKER) (test jcan=760) BILIRUBIN TOTAL (BEAKER) 0.7 mg/dL 0.2-1.2 Specimen slightly (test yqyw=157) hemolyzed SODIUM (BEAKER) (test 140 meq/L 136-145 anso=609) POTASSIUM (BEAKER) (test 5.7 meq/L 3.5-5.1 Specimen slightly feac=287) hemolyzed CHLORIDE (BEAKER) (test 108 meq/L 98-107 yyyx=022) CO2 (BEAKER) (test 21 meq/L 22-29 jldt=362) BLOOD UREA NITROGEN 31 mg/dL 7-21 (BEAKER) (test bjrw=178) CREATININE (BEAKER) (test 1.68 mg/dL 0.57-1.25 Specimen slightly arnp=281) hemolyzed GLUCOSE RANDOM (BEAKER) 217 mg/dL 70-105 (test xhmz=089) CALCIUM (BEAKER) (test 9.1 mg/dL 8.4-10.2 uvdo=839) AST (SGOT) (BEAKER) (test 24 U/L 5-34 Specimen slightly qoil=200) hemolyzed ALT (SGPT) (BEAKER) (test 26 U/L 6-55 Specimen slightly khud=446) hemolyzed EGFR (BEAKER) (test 42 mL/min/1.73 sq m ESTIMATED GFR IS NOT onsn=3251) ACCURATE CREATININE CLEARANCE IN PREDICTING GLOMERULAR FILTRATION RATE. ESTIMATED GFR IS NOT APPLICABLE FOR DIALYSIS PATIENTS. URINALYSIS W/ [id number] 11:46:00 Test Item Value Reference Range Comments COLOR (BEAKER) (test ifky=901) Yellow CLARITY (BEAKER) (test coto=258) Clear SPECIFIC GRAVITY UA (BEAKER) (test lejy=658) 1.014 1.001-1.035 PH UA (BEAKER) (test lglv=698) 5.5 5.0-8.0 PROTEIN UA (BEAKER) (test hfpc=412) 10 mg/dL Negative GLUCOSE UA (BEAKER) (test iddr=203) 200 mg/dL Negative KETONES UA (BEAKER) (test xkpc=888) Negative Negative BILIRUBIN UA (BEAKER) (test mgnf=437) Negative Negative BLOOD UA (BEAKER) (test jetq=077) Trace Negative NITRITE UA (BEAKER) (test wjyr=538) Negative Negative LEUKOCYTE ESTERASE UA (BEAKER) (test skpy=477) Large Negative UROBILINOGEN UA (BEAKER) (test tlrd=969) 0.2 mg/dL 0.2-1.0 RBC UA (BEAKER) (test zqcq=352) 19 /HPF WBC UA (BEAKER) (test mdtl=871) 115 /HPF BACTERIA (BEAKER) (test rslt=116) Many MUCUS (BEAKER) (test fgho=8843) Rare SQUAMOUS EPITHELIAL (BEAKER) (test tbdf=748) < /HPF SOURCE(BEAKER) (test lxap=4252)
[2019-03-29] MEDS ORDERED: NA CHLORIDE 0.9% 500 ML ONE (08:47)
[2019-03-29] MEDS ORDERED: ATROPINE SULF 1 MG/10 ML SYR IV ONE ×2 (09:47→10:09)
[2019-03-29] MEDS ORDERED: NICARDIPINE HCL 25 MG/10 ML IV ONE (09:47)
[2019-03-29] MEDS ORDERED: HEPARIN 5000 UNIT/ML 1 ML VIAL ONE (09:47)
[2019-03-29] MEDS ORDERED: NA CHLORIDE 0.9% 50 ML ONE (09:47)
[2019-03-29] MEDS ORDERED: MIDAZOLAM HCL 2 MG/2 ML INJ ONE (10:07)
[2019-03-29] MEDS ORDERED: FENTANYL CITR 100 MCG/2 ML ONE (10:08)
[2019-03-29] MEDS ORDERED: ACETYLCYST 20% 4 ML VIAL IH ONE (10:15)
[2019-03-29] MEDS ORDERED: PRASUGREL (EFFIENT) 10 MG TAB ONE (11:08)
[2019-03-29] MEDS ORDERED: DOCUSATE NA 100 MG CAP PO PRN (11:18)
[2019-03-29] MEDS ORDERED: HEPA 1000U/500MLS 2,000 UNIT/1,000 ML BAG IV ONE (11:21)
[2019-03-29] MEDS ORDERED: ZOLPIDEM TARTRATE 5 MG TABLET PO PRN (11:22)
[2019-03-29 13:21] VITALS: BMI 28.8
--- NOTE | 2019-03-29 16:46 | OP ---
Surgeon: Francisco Plummer MD Procedures: Left heart catheterization with coronary angiography, angiography of left internal mamma ry bypass graft, bypass graft saphenous vein to the first diagonal. There was no left ventricular an giogram done to minimize the amount of contrast used. There was also a percutaneous coronary interve ntion of the right coronary artery for in-stent restenosis. Findings: The patient's right coronary artery showed a 90% stenosis within the body of the graft, it was not distal to it, it was in the distal half now though, and after stenting the more proximal por tion of the artery because of irregularity after ballooning, and after ballooning inside the stent up to 18 atmospheres with a noncompliant Emerge balloon, we had an excellent angiographic result, JAYCE grade 3 flow. So, there was a balloon treatment of the in-stent stenosis and 2 stents in the more pr oximal part of the right coronary artery delivered because of trauma to the artery after the balloon angioplasty. Procedure In Detail: The patient had unstable angina. Without the benefit of any stress testing, we took him to the cardiac pharmaceutical laboratory technician. He was fasting and gave us informed consent, prepared and draped in usual sterile fashion. Right femoral artery was used. We enter the artery with an 18-gauge needl e, cannulated it with a short J-wire, and placed a 4-Vietnamese sheath. We angiogram the left coronary w ith a JL-4, and we angiogram the graft to the first diagonal and the internal mammary graft to the LA D and the [place] right coronary artery, all with a 4-Vietnamese 3DRC catheter. There was no attempt to d o an LV-gram because of his renal insufficiency, diabetes. We wanted to minimize the amount of contr ast we used. We exchanged up to a 6-Vietnamese sheath and used a 3DRC guide with side holes, it cannulat ed the artery well. We were able to cross the lesion with a wire, across it with the balloon, inflat ed, and we had decent resolution of the in-stent restenosis, but the more proximal part of the artery was traumatized by all of this and needed stenting. So inside the stent, it was dilated in 4 differ ent sections up to 18 atmospheres, and after that, we placed 2 more proximal stents, a Synergy 3.0 x 12 just proximal to the stent, another 1 just proximal to that stent, before we had all of the irregu larity resolved. After final angiograms, excellent JAYCE grade 3 flow, no symptoms, no EKG changes. Excellent angiographic result. Final pictures were taken in orthogonal views and then the guide cath eter was removed. A sheath shot had been obtained. We plan to close the arteriotomy in the right fe moral artery using an Angio-Seal device once the activated clotting time is around 250 seconds. Comp lications from the procedure, none. Estimated Blood Loss: 20 cc. Division Field Inspector: Nany Swan. JERONIMO/CARIN Voice ID: [id number] Report ID: [id number]
[2019-03-29] MEDS: METOPROLOL XL 25 MG TAB PO SCH (17:27)
[2019-03-29] MEDS ORDERED: ROSUVASTATIN 10 MG TAB PO SCH (21:00)
[2019-03-30 04:48] LABS: Potassium 4.4 mmol/L (3.5-5.1)
[2019-03-30 04:49] LABS: Hematocrit 38.3 % (39.6-49.0); MPV 9.3 fL (7.6-11.3); RBC Red Blood Cell Count 4.35 M/uL (4.33-5.43)
[2019-03-30] MEDS: METOPROLOL XL 25 MG TAB PO SCH (06:09)
[2019-03-30 07:46] VITALS: O2SAT 96
[2019-03-30] MEDS ORDERED: ASPIRIN EC 81 MG TAB PO SCH (09:00)
[2019-03-30] MEDS ORDERED: PRASUGREL (EFFIENT) 10 MG TAB PO SCH (09:00)
[2019-03-30 09:09] VITALS: BP 113/63; TEMP 97.3
--- NOTE | 2019-03-30 09:38 | DS ---
Mr. Holm was admitted outpatient in a bed after a stent procedure. He had heart catheterization, intracoronary stent in his right coronary artery to treat in-stent restenosis. He has severe underly ing coronary heart disease. He is having unstable angina after his cardiac cath. He is doing well. His labs looked okay. We are concerned about renal dysfunction. With his diabetes and baseline rosette al dysfunction that he can follow up with us in 2 weeks. There are no changes in medicines, continue as before as an outpatient. I plan to add Vascepa 4 g per day to his regimen. JERONIMO/CARIN Voice ID: [id number] Report ID: [id number]
== END 2019-03-30 09:18 | disposition home or self-care (01) ==
LOC: CCL 07:52 → 4TH 11:14 → CCL 03-30 09:18
PROVIDERS: ATTEND Internal Medicine
DX: I25.810 Atherosclerosis of coronary artery bypass graft(s) without angina pectoris (principal); I10 Essential (primary) hypertension; E78.2 Mixed hyperlipidemia; Z79.82 Long term (current) use of aspirin; Z79.899 Other long term (current) drug therapy
CPT/HCPCS: 36415; 71046; 80048; 82962; 85025; 85027; 85347; 85610; 85730; 92928; 93454; C1725; C1760; C1877; C1893; J0583; J1644; J2250; J3010

== ENCOUNTER 2019-06-29 07:27 | Day surgery (SDC) | payer BC ==
[2019-06-28 10:18] LABS: Absolute Lymphocytes (CBC) 1.7 K/uL (0.7-4.9); Basophils % 1.3 % (0-1.3); Lymphocytes % 34.3 % (15.3-44.8); MPV 8.5 fL (7.6-11.3); RBC Red Blood Cell Count 4.44 M/uL (4.33-5.43)
[2019-06-28 10:32] LABS: Protime INR 1.03
[2019-06-28 10:34] LABS: Potassium 4.7 mmol/L (3.5-5.1)
--- OUTSIDE RECORDS SUMMARY | 2019-06-29 07:29 | XMS REPORT | Clinical Summary ---
:1960 Author Organization [facility] Address [address] [place] [address] Care Team Providers Name Role Phone Daniel Garcia MD Primary Care Provider Allergies No Known Allergies Medications Medication Sig [...] INFLUENZA VACCINE 05/11/2019 Implants Implanted Type Area Sales Representative Jewelry Device Shelf Model / Identifier Expiration Serial / Date Lot Skw Deep Scrotal Retract System - [id number] SUPPLIES N/A: ESTONIAN [id number] / Implanted: Qty: 1 on 04/17/2016 by Cesar Harding MD at [facility] PATIENT Penis MEDICAL / BILLABLE SYSTEMS- AMS Spectra Rear Tip Extenders 12mm & 14mm-3cm - [id number] SUPPLIES N/A: N/A ESTONIAN 03/05/2021 [id number] / Implanted: Qty: 1 on 04/17/2016 by Cesar Harding MD at [facility] PATIENT MEDICAL / NON-BILLABLE SYSTEMS- AMS [id number] Injectables Injectables Description:LLQ abdominal area Kit Accy Infltbl Penile Ams 700 - [id number] Urological N/A: Penis ESTONIAN 02/13/2021 [id number] / Implanted: Qty: 1 on 04/17/2016 by Cesar Harding MD at [facility] Implants or Sets MED[employer] SYSTEM[employer] / INC [id number] Implant Penile Ams 700 Lgx Ms Prcnctd Pnscrtl Aprch 18cm - [id number] Urological N/A: Penis ESTONIAN 02/04/2018 [id number] / Implanted: Qty: 1 on 04/17/2016 by Cesar Harding MD at [facility] Implants or Sets [employer] [id number] Implant Penile Rsvr Ams 700 Ms Prcnctd W/ Iz 100ml - [id number] Urological N/A : Penis ESTONIAN 09/03/2017 [id number] / Implanted: Qty: 1 on 04/17/2016 by Cesar Harding MD at [facility] Implants or Sets [employer] [id number] Insulin Pump Description:Right upper abdomen area Results Not on fileafter 06/28/2018 Advance Directives For more information, please contact: [phone] Type Date Recorded 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
--- OUTSIDE RECORDS SUMMARY | 2019-06-29 07:29 | XMS REPORT | Clinical Summary ---
:1960 Author Organization [facility] Address [address] [place] [address] Care Team Providers Name Role Phone Radha [...] Team Description 03/21/2019 Hospital Encounter Pre-Admission Testing after 06/28/2018 Social History Tobacco Use Types Packs/Day Years [...] Not on file Results Not on fileafter 06/28/2018 Insurance Payer Benefit Plan / Subscriber ID Type Phone Address Group BLUE CROSS/BLUE BCBS HMO xxxxxxxxxxxx HMO/POS [phone] [address] [place] [address] Advance Directives For more information, please contact:[address] [phone] Code Status Date Activated Date Inactivated Comments Full Code 12/10/2016 4:04 PM 12/11/2016 3:02 PM This code status was determined by: Patient
--- OUTSIDE RECORDS SUMMARY | 2019-06-29 07:30 | XMS REPORT ---
:1960 Author Organization [facility] Address [address] [place] [address] Care Team Providers Name Role Phone ARIELLA [...] Value Reference Range Comments HEMOGLOBIN (BEAKER) (test vgsc=384) 9.8 GM/DL 13.0-16.8 HEMATOCRIT (BEAKER) (test kvjs=725) 29.7 % 40.0-50.0 POCT-GLUCOSE [id number] 08:04:00 Test Item Value Reference Range Comments POC-GLUCOSE METER (BEAKER) 59 mg/dL 70-110 TESTED AT [facility] [address] [facility] (test oyyo=5922) [facility] [address] BASIC METABOLIC [id number] 06:07:00 Test Item Value Reference Range Comments SODIUM (BEAKER) (test 140 meq/L 136-145 lvby=910) POTASSIUM (BEAKER) (test 4.2 meq/L 3.5-5.1 fxle=925) CHLORIDE (BEAKER) (test 114 meq/L 98-107 cizl=432) CO2 (BEAKER) (test 20 meq/L 22-29 euez=340) BLOOD UREA NITROGEN 16 mg/dL 7-21 (BEAKER) (test duxu=867) CREATININE (BEAKER) (test 1.23 mg/dL 0.57-1.25 nprx=952) GLUCOSE RANDOM (BEAKER) 93 mg/dL 70-105 (test hdvl=144) CALCIUM (BEAKER) (test 6.8 mg/dL 8.4-10.2 dwoc=929) EGFR (BEAKER) (test 61 mL/min/1.73 sq m ESTIMATED GFR IS NOT xzfg=7702) ACCURATE CREATININE CLEARANCE IN PREDICTING GLOMERULAR FILTRATION RATE. ESTIMATED GFR IS NOT APPLICABLE FOR DIALYSIS PATIENTS. POCT-GLUCOSE [id number] 22:08:00 Test Item Value Reference Range Comments POC-GLUCOSE METER (BEAKER) 200 mg/dL 70-110 TESTED AT [address] (test jgze=0413) [facility] [address] POCT-GLUCOSE [id number] 17:00:00 Test Item Value Reference Range Comments POC-GLUCOSE METER (BEAKER) 289 mg/dL 70-110 TESTED AT [address] (test gkmw=5776) [place] [id number] BASIC METABOLIC [id number] 14:43:00 Test Item Value Reference Range Comments SODIUM (BEAKER) (test 141 meq/L 136-145 sjum=263) POTASSIUM (BEAKER) (test 4.1 meq/L 3.5-5.1 bjjg=565) CHLORIDE (BEAKER) (test 116 meq/L 98-107 bpls=419) CO2 (BEAKER) (test 17 meq/L 22-29 tuib=135) BLOOD UREA NITROGEN 31 mg/dL 7-21 (BEAKER) (test vbtd=753) CREATININE (BEAKER) (test 1.66 mg/dL 0.57-1.25 qzjl=531) GLUCOSE RANDOM (BEAKER) 261 mg/dL 70-105 (test kouj=717) CALCIUM (BEAKER) (test 7.3 mg/dL 8.4-10.2 oaqr=184) EGFR (BEAKER) (test 43 mL/min/1.73 sq m ESTIMATED GFR IS NOT tunt=4905) ACCURATE CREATININE CLEARANCE IN PREDICTING GLOMERULAR FILTRATION RATE. ESTIMATED GFR IS NOT APPLICABLE FOR DIALYSIS PATIENTS. HEMOGLOBIN AND [id number] 14:32:00 Test Item Value Reference Range Comments HEMOGLOBIN (BEAKER) (test ztjz=081) 10.0 GM/DL 13.0-16.8 HEMATOCRIT (BEAKER) (test hqlp=725) 28.4 % 40.0-50.0 POCT-GLUCOSE [id number] 13:51:00 Test Item Value Reference Range Comments POC-GLUCOSE METER (BEAKER) 282 mg/dL 70-110 TESTED AT [address] (test cchh=7009) [facility] [address] SODIUM NA-STAT [id number] 13:16:00 Test Item Value Reference Range Comments SODIUM (BEAKER) (test eyxn=459) 137 meq/L 135-148 POTASSIUM-STAT [id number] 13:16:00 Test Item Value Reference Range Comments POTASSIUM (BEAKER) (test ehel=242) 4.1 meq/L 3.6-5.5 BLOOD GAS, [id number] 13:16:00 Test Item Value Reference Range Comments PH ARTERIAL (BEAKER) (test hjjb=833) 7.32 7.35-7.45 PCO2 ARTERIAL (BEAKER) (test pcah=937) 36 mmHg 35-45 PO2 ARTERIAL (BEAKER) (test jwgx=775) 521 mmHg 80-90 O2 SATURATION ARTERIAL (BEAKER) (test esvv=990) 99.9 % 96.0-97.0 HCO3 ARTERIAL (BEAKER) (test qxvw=104) 18 mmol/L 21-29 BASE EXCESS ARTERIAL (BEAKER) (test eevz=794) -7.0 mmol/L -2.0-3.0 PATIENT TEMPERATURE (BEAKER) (test iftg=2671) 37.0 C FIO2 (BEAKER) (test nwmd=3438) 100.0 % GLUCOSE-STAT [id number] 13:16:00 Test Item Value Reference Range Comments GLUCOSE RANDOM (BEAKER) (test nhub=304) 295 mg/dL 70-110 HGB/HCT (H&H) - STAT [id number] 13:16:00 Test Item Value Reference Range Comments HEMOGLOBIN (BEAKER) (test cght=340) 9.9 g/dL 13.0-16.8 HEMATOCRIT (BEAKER) (test uqlf=759) 29.0 % 40.0-50.0 CALCIUM, [id number] 13:16:00 Test Item Value Reference Range Comments CALCIUM IONIZED (BEAKER) (test afof=710) 1.04 mmol/L 1.12-1.27 PH, BLOOD (BEAKER) (test olyp=3123) 7.32 BLOOD GAS, [id number] 12:22:00 Test Item Value Reference Range Comments PH ARTERIAL (BEAKER) (test yttv=270) 7.33 7.35-7.45 PCO2 ARTERIAL (BEAKER) (test shlb=968) 31 mmHg 35-45 PO2 ARTERIAL (BEAKER) (test wgud=408) 259 mmHg 80-90 O2 SATURATION ARTERIAL (BEAKER) (test csak=786) 99.6 % 96.0-97.0 HCO3 ARTERIAL (BEAKER) (test ylvp=881) 16 mmol/L 21-29 BASE EXCESS ARTERIAL (BEAKER) (test rvfb=513) -9.4 mmol/L -2.0-3.0 PATIENT TEMPERATURE (BEAKER) (test lhut=1720) 37.0 C FIO2 (BEAKER) (test glby=2709) 21.0 % GLUCOSE-STAT [id number] 12:22:00 Test Item Value Reference Range Comments GLUCOSE RANDOM (BEAKER) (test mtqc=117) 322 mg/dL 70-110 HGB/HCT (H&H) - STAT [id number] 12:22:00 Test Item Value Reference Range Comments HEMOGLOBIN (BEAKER) (test blqc=207) 9.7 g/dL 13.0-16.8 HEMATOCRIT (BEAKER) (test msjy=711) 29.0 % 40.0-50.0 CALCIUM, [id number] 12:22:00 Test Item Value Reference Range Comments CALCIUM IONIZED (BEAKER) (test tqdb=365) 0.99 mmol/L 1.12-1.27 PH, BLOOD (BEAKER) (test vhaj=3598) 7.33 SODIUM NA-STAT [id number] 12:18:00 Test Item Value Reference Range Comments SODIUM (BEAKER) (test hrzx=873) 136 meq/L 135-148 POTASSIUM-STAT [id number] 12:18:00 Test Item Value Reference Range Comments POTASSIUM (BEAKER) (test fvpi=089) 4.4 meq/L 3.6-5.5 BLOOD GAS, [id number] 11:22:00 Test Item Value Reference Range Comments PH ARTERIAL (BEAKER) (test sfpb=997) 7.35 7.35-7.45 PCO2 ARTERIAL (BEAKER) (test atee=456) 33 mmHg 35-45 PO2 ARTERIAL (BEAKER) (test dejf=272) 312 mmHg 80-90 O2 SATURATION ARTERIAL (BEAKER) (test pyhw=410) 99.7 % 96.0-97.0 HCO3 ARTERIAL (BEAKER) (test axyx=771) 17 mmol/L 21-29 BASE EXCESS ARTERIAL (BEAKER) (test aevu=851) -7.4 mmol/L -2.0-3.0 PATIENT TEMPERATURE (BEAKER) (test ppxm=2615) 37.0 C FIO2 (BEAKER) (test vynn=3536) 21.0 % GLUCOSE-STAT [id number] 11:22:00 Test Item Value Reference Range Comments GLUCOSE RANDOM (BEAKER) (test kynb=411) 352 mg/dL 70-110 HGB/HCT (H&H) - STAT [id number] 11:22:00 Test Item Value Reference Range Comments HEMOGLOBIN (BEAKER) (test ynpr=733) 10.4 g/dL 13.0-16.8 HEMATOCRIT (BEAKER) (test fapl=477) 31.0 % 40.0-50.0 CALCIUM, [id number] 11:22:00 Test Item Value Reference Range Comments CALCIUM IONIZED (BEAKER) (test daqa=232) 1.03 mmol/L 1.12-1.27 PH, BLOOD (BEAKER) (test wjph=3123) 7.35 SODIUM NA-STAT [id number] 11:21:00 Test Item Value Reference Range Comments SODIUM (BEAKER) (test xfkj=253) 136 meq/L 135-148 POTASSIUM-STAT [id number] 11:21:00 Test Item Value Reference Range Comments POTASSIUM (BEAKER) (test lbql=077) 5.4 meq/L 3.6-5.5 SODIUM NA-STAT [id number] 08:47:00 Test Item Value Reference Range Comments SODIUM (BEAKER) (test xmfi=575) 135 meq/L 135-148 POTASSIUM-STAT [id number] 08:47:00 Test Item Value Reference Range Comments POTASSIUM (BEAKER) (test pmqb=111) 4.4 meq/L 3.6-5.5 BLOOD GAS, [id number] 08:47:00 Test Item Value Reference Range Comments PH ARTERIAL (BEAKER) (test gzcn=908) 7.39 7.35-7.45 PCO2 ARTERIAL (BEAKER) (test optg=750) 35 mmHg 35-45 PO2 ARTERIAL (BEAKER) (test jyts=487) 261 mmHg 80-90 O2 SATURATION ARTERIAL (BEAKER) (test xogp=654) 99.6 % 96.0-97.0 HCO3 ARTERIAL (BEAKER) (test jhpp=025) 21 mmol/L 21-29 BASE EXCESS ARTERIAL (BEAKER) (test rlwn=298) -4.0 mmol/L -2.0-3.0 PATIENT TEMPERATURE (BEAKER) (test qdfm=7724) 37.0 C FIO2 (BEAKER) (test tapl=9296) 100.0 % GLUCOSE-STAT [id number] 08:47:00 Test Item Value Reference Range Comments GLUCOSE RANDOM (BEAKER) (test nrlm=561) 183 mg/dL 70-110 HGB/HCT (H&H) - STAT [id number] 08:47:00 Test Item Value Reference Range Comments HEMOGLOBIN (BEAKER) (test daqa=803) 10.5 g/dL 13.0-16.8 HEMATOCRIT (BEAKER) (test mmku=986) 31.0 % 40.0-50.0 CALCIUM, [id number] 08:47:00 Test Item Value Reference Range Comments CALCIUM IONIZED (BEAKER) (test eqiz=677) 1.06 mmol/L 1.12-1.27 PH, BLOOD (BEAKER) (test adcz=0965) 7.39 [id number] 06:53:00 Test Item Value Reference Range Comments POTASSIUM (BEAKER) (test mjdy=877) 4.9 meq/L 3.6-5.5 POCT-GLUCOSE [id number] 06:45:00 Test Item Value Reference Range Comments POC-GLUCOSE METER (BEAKER) 208 mg/dL 70-110 TESTED AT [address] (test yrai=3015) [facility] [address] URINE [id number] 12:35:00 Test Item Value Reference Range Comments CULTURE (BEAKER) (test ENTEROCOCCUS SPECIES >100,000 col/mL kyoz=5014) Enterococcus species Ampicillin (test Susceptible >=17 , code=26) Resistant <17 Linezolid (test Susceptible >=23 , code=40) Resistant <23 Nitrofurantoin (test Susceptible >=17 , code=23) Resistant <17 Tetracycline (test Susceptible >=19 , code=2) Resistant <19 Vancomycin (test code=13) CBC W/PLT COUNT & AUTO [id number] 11:52:00 Test Item Value Reference Range Comments WHITE BLOOD CELL COUNT (BEAKER) (test rhoc=223) 5.6 K/ L 4.0-10.0 RED BLOOD CELL COUNT (BEAKER) (test juuy=082) 4.27 M/ L 4.20-5.80 HEMOGLOBIN (BEAKER) (test saqc=117) 13.5 GM/DL 13.0-16.8 HEMATOCRIT (BEAKER) (test qwqi=174) 40.3 % 40.0-50.0 MEAN CORPUSCULAR VOLUME (BEAKER) (test icpf=950) 94.3 fL 82.0-98.0 MEAN CORPUSCULAR HEMOGLOBIN (BEAKER) (test 31.6 pg 27.0-33.0 hrlr=718) MEAN CORPUSCULAR HEMOGLOBIN CONC (BEAKER) (test 33.5 GM/DL 32.0-36.0 iexc=788) RED CELL DISTRIBUTION WIDTH (BEAKER) (test 12.4 % 10.3-14.2 muqk=813) PLATELET COUNT (BEAKER) (test pmmw=350) 205 K/CU MM 150-430 MEAN PLATELET VOLUME (BEAKER) (test lsle=394) 7.6 fL 6.5-10.5 NUCLEATED RED BLOOD CELLS (BEAKER) (test 0 /100 WBC 0-0 kdfv=533) NEUTROPHILS RELATIVE PERCENT (BEAKER) (test 47 % mqbs=516) LYMPHOCYTES RELATIVE PERCENT (BEAKER) (test 37 % rliv=130) MONOCYTES RELATIVE PERCENT (BEAKER) (test 11 % igzr=195) EOSINOPHILS RELATIVE PERCENT (BEAKER) (test 5 % mlmb=743) BASOPHILS RELATIVE PERCENT (BEAKER) (test 1 % tqzz=148) NEUTROPHILS ABSOLUTE COUNT (BEAKER) (test 2.60 K/ L 1.80-8.00 bged=560) LYMPHOCYTES ABSOLUTE COUNT (BEAKER) (test 2.08 K/ L 1.48-4.50 lmux=031) MONOCYTES ABSOLUTE COUNT (BEAKER) (test 0.61 K/ L 0.00-1.30 bzgf=303) EOSINOPHILS ABSOLUTE COUNT (BEAKER) (test 0.26 K/ L 0.00-0.50 cdkb=723) BASOPHILS ABSOLUTE COUNT (BEAKER) (test 0.04 K/ L 0.00-0.20 gslk=974) 0.00COMPREHENSIVE METABOLIC [id number] 11:47:00 Test Item Value Reference Range Comments TOTAL PROTEIN (BEAKER) 7.4 gm/dL 6.0-8.3 Specimen slightly (test zeaf=181) hemolyzed ALBUMIN (BEAKER) (test 4.1 g/dL 3.5-5.0 Specimen slightly rwqk=9052) hemolyzed ALKALINE PHOSPHATASE 119 U/L 40-150 (BEAKER) (test tgtb=113) BILIRUBIN TOTAL (BEAKER) 0.7 mg/dL 0.2-1.2 Specimen slightly (test evsm=984) hemolyzed SODIUM (BEAKER) (test 140 meq/L 136-145 dfks=538) POTASSIUM (BEAKER) (test 5.7 meq/L 3.5-5.1 Specimen slightly fdkt=194) hemolyzed CHLORIDE (BEAKER) (test 108 meq/L 98-107 xmhj=735) CO2 (BEAKER) (test 21 meq/L 22-29 dhda=762) BLOOD UREA NITROGEN 31 mg/dL 7-21 (BEAKER) (test umts=457) CREATININE (BEAKER) (test 1.68 mg/dL 0.57-1.25 Specimen slightly otfw=560) hemolyzed GLUCOSE RANDOM (BEAKER) 217 mg/dL 70-105 (test fvzz=669) CALCIUM (BEAKER) (test 9.1 mg/dL 8.4-10.2 zhph=280) AST (SGOT) (BEAKER) (test 24 U/L 5-34 Specimen slightly cvqn=265) hemolyzed ALT (SGPT) (BEAKER) (test 26 U/L 6-55 Specimen slightly qyoj=353) hemolyzed EGFR (BEAKER) (test 42 mL/min/1.73 sq m ESTIMATED GFR IS NOT nfpp=8254) ACCURATE CREATININE CLEARANCE IN PREDICTING GLOMERULAR FILTRATION RATE. ESTIMATED GFR IS NOT APPLICABLE FOR DIALYSIS PATIENTS. URINALYSIS W/ [id number] 11:46:00 Test Item Value Reference Range Comments COLOR (BEAKER) (test lcjt=405) Yellow CLARITY (BEAKER) (test xvym=242) Clear SPECIFIC GRAVITY UA (BEAKER) (test qphr=359) 1.014 1.001-1.035 PH UA (BEAKER) (test neam=931) 5.5 5.0-8.0 PROTEIN UA (BEAKER) (test mncv=296) 10 mg/dL Negative GLUCOSE UA (BEAKER) (test ndzd=469) 200 mg/dL Negative KETONES UA (BEAKER) (test iikw=410) Negative Negative BILIRUBIN UA (BEAKER) (test jljr=442) Negative Negative BLOOD UA (BEAKER) (test hiuw=924) Trace Negative NITRITE UA (BEAKER) (test rfiu=748) Negative Negative LEUKOCYTE ESTERASE UA (BEAKER) (test aimz=040) Large Negative UROBILINOGEN UA (BEAKER) (test xgcg=474) 0.2 mg/dL 0.2-1.0 RBC UA (BEAKER) (test hqzt=377) 19 /HPF WBC UA (BEAKER) (test svic=486) 115 /HPF BACTERIA (BEAKER) (test mfdk=440) Many MUCUS (BEAKER) (test kkww=9615) Rare SQUAMOUS EPITHELIAL (BEAKER) (test fewq=263) < /HPF SOURCE(BEAKER) (test anme=1908)
[2019-06-29] MEDS ORDERED: NA CHLORIDE 0.9% 500 ML ONE (07:46)
[2019-06-29] MEDS ORDERED: HEPA 1000U/500MLS 2,000 UNIT/1,000 ML BAG IV ONE (08:26)
[2019-06-29] MEDS ORDERED: LIDOCAINE 1% 20 ML MDV ONE (08:26)
[2019-06-29] MEDS ORDERED: MIDAZOLAM HCL 2 MG/2 ML INJ ONE (09:51)
[2019-06-29] MEDS ORDERED: ATROPINE SULF 1 MG/10 ML SYR IV ONE (09:52)
[2019-06-29] MEDS ORDERED: NA CHLORIDE 0.9% 0 ML ONE (09:52)
[2019-06-29] MEDS ORDERED: FENTANYL CITR 100 MCG/2 ML ONE (09:52)
[2019-06-29 12:16] VITALS: O2SAT 100
[2019-06-29 12:51] VITALS: BP 139/72; TEMP 98.9
--- NOTE | 2019-06-29 22:10 | OP ---
Date of Procedure: 06/29/2019 Surgeon: Jarad Peres MD Mat Puncher: Felisa Swan. Indication: Mr. Holm is a 59-year-old male. He is a patient of Dr. Garcia. History of bypass evin kaylie, multiple stent and dilatation of the RCA in the past with unstable angina. Admitted as an outp atient for a heart catheterization. Procedure: Left heart catheterization, selective coronary arteriogram, selective vein graft injectio n, LV injection, LEON injection. Findings: The patient had a normal LVEF and EDP. Normal wall motion. That was done using a JR4 cat heter. The JR4 catheter also was used to inject the LEON to the LAD, which was open. The vein graft to the OM which was open. There were some diffuse plaquing in the obtuse marginal itself. There wa s 100% occlusion of the LAD, circumflex, left main trifurcation. The RCA had multiple stents from th e proximal RCA to the distal RCA and the middle of the RCA. There were multiple stents with 99% in-s tent restenosis. This had been stented, dilated, restented again and keeps occluding at the same exa ct spot. There were no complications. Blood Loss: 5 cc. Postoperative Diagnosis: Severe coronary artery disease. Plan: To continue medical therapy. The plan is for referral to [place] for brachytherapy and angiop lasty of the RCA. Case discussed with the family. Anesthesia: Total conscious sedation was 45 minutes. The patient will be going home today on his home medication, which include Effient, aspirin, nitrogly cerin as needed, beta-blockers, and statin. I will discuss the case with Dr. Plummer. EDMOND/CARIN Voice ID: [id number] Report ID: [id number]
== END 2019-06-29 13:03 | disposition home health service (06) ==
LOC: CCL 07:27
DX: I25.110 Atherosclerotic heart disease of native coronary artery with unstable angina pectoris (principal); I25.82 Chronic total occlusion of coronary artery; T82.855A Stenosis of coronary artery stent, initial encounter; Z95.1 Presence of aortocoronary bypass graft; Z95.5 Presence of coronary angioplasty implant and graft; Z88.3 Allergy status to other anti-infective agents; Z88.6 Allergy status to analgesic agent
CPT/HCPCS: 85025; 80048; 36415; 85610; 82962; 85730; 93459; C1893; C1760; J2250; J3010; J0583

== ENCOUNTER 2020-06-16 18:48 | Emergency (ER) | payer BC ==
--- OUTSIDE RECORDS SUMMARY | 2020-06-16 18:51 | XMS REPORT | Clinical Summary ---
:1960 Author Organization [facility] Address [address] [place] [address] Care Team Providers Name Role Phone MD Radha Primary Care Provider Allergies Active Allergy Reactions Severity Noted Date Comments Levofloxacin Other (See 05/26/2016 nausea Comments) Makes patient regurgitate/vom it and can feel liquid ly acid coming up his w indpipe Morphine Other (See High 07/04/2019 Hallucination Comments) Penicillins Anaphylaxis, High 04/16/2016 Throat swells Swelling Happened 30 yea rs ago but hasn't rece ntly happened. Sulfamethoxazole-Trimet Hives 12/14/2016 Bact rim gives him hives hoprim and nauseau Medications Medication Sig Dispensed Refills Start Date End Date Status INSULIN REGULAR, Inject under 0 Active HUMAN (INSULIN the skin PUMP) 500 unit/mL continuously . Total of 70 units daily ergocalciferol Take 2,000 0 Acti ve (DRISDOL) 8,000 Units by unit/mL drops mouth. metoprolol Take 25 mg 0 09/23/2018 Active succinate XL by mouth 2 (TOPROL-XL) 25 mg (two) times 24 hr tablet a day. VASCEPA 1 gram 2 g 2 (two) 0 04/06/2019 Ac tive capsule times a day. furosemide (LASIX) Take 40 mg 0 09/15/2018 Active 40 mg tablet by mouth as needed. nitroglycerin Place 0.4 mg 0 09/06/2018 Ac tive (NITROSTAT) 0.4 MG under the SL tablet tongue every 5 (five) minutes as needed. rosuvastatin Take 40 mg 0 10/06/2018 Activ e (CRESTOR) 40 MG by mouth tablet nightly. HUMALOG U-100 Total of 70 0 05/04/2019 Act beth INSULIN 100 unit/mL units a day injection via the insulin pump docusate sodium Take 100 mg 0 Ac tive (COLACE) 100 MG by mouth 2 capsule (two) times a day. cholecalciferol, Take 2,000 0 Ac tive vitamin D3, Units by (VITAMIN D3) 2,000 mouth daily. unit tablet valsartan (DIOVAN) Take 80 mg 0 02/12/2016 Discontinued 80 MG tablet by mouth 9 daily. RANEXA 500 mg 12 hr Take 500 mg 0 02/12/2016 01 Discontinued ER tablet by mouth 2 9 (two) times a day. rosuvastatin Take 10 mg 0 Discon tinued (CRESTOR) 10 MG by mouth 9 tablet daily. aspirin (ECOTRIN) Take 81 mg 0 D iscontinued 81 MG enteric by mouth 9 (Reord er) coated tablet daily. aspirin-calcium Take 81 mg 0 Dis continued carbonate 81 mg-300 by mouth. 9 (Duplicate order) mg calcium(777 mg) tablet prasugrel (EFFIENT) Take 10 mg 0 04/17/2019 07/06/20 1 Discontinued 10 mg tablet by mouth 9 (Reorde r) daily. aspirin (ECOTRIN) Take 81 mg 0 D iscontinued 81 MG enteric by mouth. 9 (Dupli manuel order) coated tablet aspirin (ECOTRIN) Take 1 90 tablet 2 07/06/2019 E xpired 81 MG enteric tablet (81 9 coated tablet mg total) by mouth daily for 90 days. prasugrel (EFFIENT) Take 1 90 tablet 2 07/06/2019 10 mg tablet tablet (10 9 mg total) by mouth daily for 90 days. 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 an lisa pectoris 07/03/2019 Overview: Added automatically from request for evin lott [id number] Penile implant failure 05/25/2016 Erectile dysfunction 04/17/2016 Encounters Date Type Specialty Care Team Description 07/05/2019 Surgery Procedural Abad Tuttle CV BRACHYTHERAP Y Cardiology MD Marilynn [[id number] (CPT)] 07/05/2019 - Hospital Encounter Cardiology Abad Tuttle Coronary artery disease involving [place] with angina pectoris, unspecified vessel or lesion type (HCC); 07/06/2019 MD Marilynn History of sonia nary artery stent placement; Hx of CABG 07/05/2019 - Hospital Encounter Radiation Oncology Ra Ashutosh 07/06/2019 MD Jesus 07/03/2019 Office Visit Cardiology Abad Tuttle Coronary artery disease involving [place] heart with angina pectoris, unspecified vessel or lesion type (HCC) (Primary Dx); MD ALEXEI Subramanian (arterios clerotic cardiovascular disease); History of sonia nary artery stent placement; Hx of CABG 06/30/2019 Transcribe Orders Cardiology Daniel Garcia Jr., MD (arteriosclerot ic cardiovascular disease) (Prima ry Dx) after 06/16/2019 Social History Tobacco Use Types Packs/Day Years Used Date Never Smoker Smokeless Tobacco: Never Used Alcohol Use Drinks/Week oz/Week Comments No Sex Assigned at Date Recorded Not on file Job Start Date Occupation Industry Not on file Not on file Not on file Travel History Travel Start Travel End No recent travel history available. Last Filed Vital Signs Vital Sign Reading Time Taken Comments Blood Pressure 168/81 07/06/2019 7:15 AM CDT Pulse 66 07/06/2019 7:24 AM CDT Temperature 37.2 C (99 F) 07/06/2019 7:15 AM CDT Respiratory Rate 28 07/06/2019 7:15 AM CDT Oxygen Saturation 98% 07/06/2019 7:15 AM CDT Inhaled Oxygen Concentration - - Weight 95.7 kg (211 lb 1 oz) 07/05/2019 10:35 AM CDT Height 181.6 cm (5' 11.5") 07/05/2019 10:35 AM CDT Body Mass Index 29.03 07/05/2019 10:35 AM CDT Plan of Treatment Date Type Specialty Care Team Description 06/28/2020 Office Visit Cardiology [facility]ad [facility]uttle [facility] [address] [facility] [address] [place], [place] [address] [phone] Health Maintenance Due Date Last Done Comments COLONOSCOPY SCREENING 2009 SHINGLES VACCINES (#1) 2009 INFLUENZA VACCINE 07/11/2020 Implants Implanted Type Area Lunchroom Worker Device Shelf Model / Identifier Expiration Serial / Date Lot Skw Deep Scrotal Retract System - [id number] SUPPLIES N/A: AMER ICAN [id number] / Implanted: Qty: 1 on 04/17/2016 by Cesar Harding MD at [facility] PATIENT Penis MEDICAL / BILLABLE SYSTEMS- AMS Spectra Rear Tip Extenders 12mm & 14mm-3cm - [id number] SUPPLI ES N/A: N/A LITHUANIAN 03/05/2021 [id number] / Implanted: Qty: 1 on 04/17/2016 by Cesar Harding MD at [facility] PATIENT MEDICAL / NON-BILLABLE SYSTEMS- AMS [id number] Injectables Injectables Description:LLQ abdominal area Kit Accy Infltbl Penile Ams 700 - [id number] Urological N/A: Penis AMER ICAN 02/13/2021 [id number] / Implanted: Qty: 1 on 04/17/2016 by Ceasr Harding MD at [facility] Implants or Sets MEDICAL SYSTEMS / INC [id number] Implant Penile Ams 700 Lgx Ms Prcnctd Pnscrtl Aprch 18cm - [id number] Urological N/A: Penis LITHUANIAN 02/04/2018 [id number] / Implanted: Qty: 1 on 04/17/2016 by Cesar Harding MD at [facility] Implants or Sets MEDICAL SYSTEMS / INC [id number] Implant Penile Rsvr Ams 700 Ms Prcnctd W/ Iz 100ml - [id number] Urological N/A: Penis LITHUANIAN 09/03/2017 [id number] / Implanted: Qty: 1 on 04/17/2016 by Cesar Harding MD at [facility] Implants or Sets MEDICAL SYSTEM[employer] / [employer] [id number] Insulin Pump Description:Right upper abdomen area Procedures Procedure Name Priority Date/Time Associated Comments Diagnosis POC GLUCOSE Routine 07/06/2019 7:12 Results for this AM CDT procedure are i n the results section. ESTIMATED GFR Routine 07/06/2019 3:20 Results fo r this AM CDT procedure are i n the results section. BASIC METABOLIC PANEL Routine 07/06/2019 3:20 Re sults for this AM CDT procedure are i n the results section. ECG PRE/POST OP Routine 07/06/2019 3:01 Results for this AM CDT procedure are i n the results section. HC COMPLETE BLD COUNT Routine 07/06/2019 3:00 Re sults for this W/AUTO DIFF AM CDT procedure are i n the results section. ECG PRE/POST OP Routine 07/05/2019 5:36 Results for this PM CDT procedure are i n the results section. POC GLUCOSE Routine 07/05/2019 5:29 Results for this PM CDT procedure are i n the results section. CV PERCUTANEOUS Routine 07/05/2019 4:40 Coronary artery Resul ts for this CORONARY INTERVENTION PM CDT disease involving p rocedure are in [place] with the result s angina pectoris, section. unspecified vessel or lesion type (HCC) History of coronary artery stent placement Hx of CABG CV PCI Routine 07/05/2019 4:40 Coronary artery Results for this PM CDT disease involving procedure are in [place] with the result s angina pectoris, section. unspecified vessel or lesion type (HCC) History of coronary artery stent placement Hx of CABG IVUS CORONARY Routine 07/05/2019 4:40 Coronary artery Results for this PM CDT disease involving procedure are in [place] with the result s angina pectoris, section. unspecified vessel or lesion type (HCC) History of coronary artery stent placement Hx of CABG CV BRACHYTHERAPY Routine 07/05/2019 4:40 Coronary artery Resu lts for this PM CDT disease involving procedure are in [place] with the result s angina pectoris, section. unspecified vessel or lesion type (HCC) History of coronary artery stent placement Hx of CABG ACTIVATED CLOTTING Routine 07/05/2019 3:04 Resul ts for this TIME PM CDT procedure are i n the results section. POC PANEL Routine 07/05/2019 1:39 Results for this PM CDT procedure are i n the results section. ESTIMATED GFR Routine 07/05/2019 1:39 Results fo r this PM CDT procedure are i n the results section. POC GLUCOSE Routine 07/05/2019 10:56 Results for this AM CDT procedure are i n the results section. ECG 12-LEAD STAT 07/05/2019 10:31 Results for this AM CDT procedure are i n the results section. after 06/16/2019 Results POC glucose (07/06/2019 7:12 AM CDT)Only the most recent of3 resultswithin the time period is included. Pathologist Sig nature POC glucose 160 (H) 65 - 99 mg/dL [facility] Comment: [facility] Notified RN Meter ID: [id number] Infusion Rn: Nas Bang Specimen Performing Organization Address City/[facility] Phone Number [facility] DEPARTMENT OF PATHOLOGY AND [address] [place] [address] [place] [phone] Estimated GFR (07/06/2019 3:20 AM CDT)Only the most recent of2 resultswithin the time period is included. Estimated GFR 50 (A) mL/min/1.[address] [facility] Comment: HOSPITAL Catergory Units Interpretation G1 >=90 Normal or high G2 60-89 Mildly decreased G3a 45-59 Mildly to moderately decreas ed G3b 30-44 Moderately to severely decre ased G4 15-29 Severely decreased G5 <15 Kidney failure The eGFR was calculated using the Chronic Kidney Disea se Epidemiology Collaboration (CKD-EPI) equation. Interpretation is based on recommendations of the National Kidney Foundation-Kidney Disease Outcomes Leonardo lity Initiative (NKF-KDOQI) published in 2014. Specimen Plasma specimen Performing Organization Address City/[facility] Cent[facility]ode Phone Number [facility] DEPARTMENT OF PATHOLOGY AND [address] [place] [address] [phone] [address] Basic metabolic panel (07/06/2019 3:20 AM CDT) [facility] Sodium 138 135 - 148 mEq/L [facility] Potassium 4.3 3.5 - 5.0 mEq/L [facility] Chloride 104 98 - 112 mEq/L [facility] CO2 22 (L) 24 - 31 mEq/L [facility] Anion gap 12@ANIO 7 - 15 mEq/L [facility] BUN 23 8 - 23 mg/dL [facility] Creatinine 1.49 (H) 0.70 - 1.20 mg/dL [facility] Glucose 300 (H) 65 - 99 mg/dL [facility] Calcium 8.5 (L) 8.8 - 10.2 mg/dL [facility] Specimen Plasma specimen Performing Organization Address City/State/Zipcode Phone Number [facility] DEPARTMENT OF PATHOLOGY AND [address] [place], [place] [address] GENOMIC MEDICINE [facility] [address] [place] [address] ECG Pre/Post Op (07/06/2019 3:01 AM CDT)Only the most recent of2 resultswithin the time period is included. Pathologist Sig nature Ventricular rate 62 [facility] Atrial rate 62 [facility] NV interval 178 [facility] QRSD interval 102 [facility] QT interval 438 [facility] QTC interval 444 [facility] P axis 1 67 [facility] QRS axis 1 -2 [facility] T wave axis 81 [facility] EKG impression Normal sinus rhythm-Possible Left atrial enlargement-Incomplete right bundle branch block-Nonspecific ST abnormality-Abnormal ECG-In automated comparison with ECG of 05-JUL-2019 17:36,-Incomplete right H MUSE bundle branch block is now present- :50 AM Specimen Narrative Performed At This result has an attachment that is no t available. Performing Organization Address City/State/Zipcode Phone Number [facility] MUSE [address] [place] [address] CBC with platelet and differential (07/06/2019 3:00 AM CDT) WBC 6.17 4.50 - 11.00 [facility] RBC 4.25 (L) 4.40 - 6.00 [facility] HGB 12.3 (L) 14.0 - 18.[address] [facility] gdL [facility] HCT 38.2 (L) 41.0 - 51.0 % [facility] MCV 89.9 82.0 - 100.0 [facility] MCH 28.9 27.0 - 34.0 pg [facility] MCHC 32.2 31.0 - 37.0 [facility] RDW - SD 42.9 37.0 - 55.0 [facility] MPV 10.9 8.8 - 13.2 fL [facility] Platelet count 146 (L) 150 - 400 k/uL [facility] Nucleated RBC 0.00 /100 WBC [facility] Neutrophils 51.9 39.0 - 69.0 % [facility] Lymphocytes 30.0 25.0 - 45.0 % [facility] Monocytes 12.3 (H) 0.0 - 10.0 % [facility] Eosinophils 4.5 0.0 - 5.0 % [facility] Basophils 0.8 0.0 - 1.0 % [facility] Immature granulocytes 0.5Comment: 0.0 - 1.0 % 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 SYNGO ELCA Laser Atherectomy 60/60 x 3 runs of mid RCA IS R. 3.5 mm Angiosculpt/Chocolate/NC POBA of the ISR seg ment. Brachytherapy 23 Gy for 5:45 minutes to the mid RCA . Attending: Dr. Abad Tuttle Interventional Fellow: Rene Jiménez MD EQUIPMENT/ANTICOAGULATION: Right Radial Artery 6F Sheath FR4 Guide Catheter Mohinder Blue, Whisper, Hi-Torque Floppy XS coronary wire Anticoagulation: Angiomax bolus and Infusion with AC T >250 sec prior to procedure PROCEDURAL DETAILS: The RCA was engaged with the FR4 Guide Catheter and a Mohinder Blue coronary wire was advanced into the distal PDA. Initially we we re not entirely sure if we had not gone underneath a stent strut, thus we a lso wired with a whisper coronary wire which easily passed through. We then exchanged this using a finecross which tracked well with a Hi-Torque Floppy XS and withdrew the Mohinder Blue coronary wire. We initially att empted to advance IVUS and we were able to see that it was not able to a dvance past the stent struts. Area at this point was at most 2.5 mm2. We thus went in with a Trek 3.0 x 6 mm semi-compliant balloon and dilated t he stent ISR with multiple high pressure inflations. We then used a 3.5 x 8 mm NC Emerge and dilated multiple times. We also used a 3.5 mm Chocolat e balloon and inflated in the ISR segments in addition to Angiosculp t balloon. We noted that the acute marginal had pinched off but came back later in the case. We then advanced ELCA laser atherectomy 0.9 and perfor med laser atherectomy of the underexpanded stent and ISR at 60/6 0 for three runs. We then advanced a guideliner to bring the brachytherapy catheter but ultimately withdrew the 6F guideliner. We advanced the 3.5F beta rail catheter and for a reference lumen diameter of 3.5 mm and lesion length 25 mm, we chose a 40 mm length source at 23 Gy for 5:45 m inutes. We then dilated with a 3.5 mm NC balloon. Final angiography re vealed no evidence of dissection or perforation; there was JAYCE 3 flow an d 0% residual stenosis. HEMOSTASIS: Tracelet ADDITIONAL POST-PROCEDURE MEDICATIONS: PLAN: 1. ASA 81mg daily 2. Prasugrel 10mg daily . 3. Cardiac medical therapy and aggressive risk factor modification. Cardiac rehabilitation. 4. Transferred in stable condition Performing Organization Address City/[facility]/Zipcode Phone Number [facility] [address] [place] [address], Activated clotting time (07/05/2019 3:04 PM CDT) [facility] Activated clotting 399 (H) 96 - 152 sec [facility] Comment: HOSPITAL Meter ID: [id number] Infusion Rn: Glen Mendoza Specimen Performing Organization Address City/[facility]/Zipcode Phone Number [facility] DEPARTMENT OF PATHOLOGY AND [address] [place] [phone] GENOM[address] MEDICINE [address] [address] POC panel (07/05/2019 1:39 PM CDT) [facility] POC sodium 142 135 - [address] [facility] mmol/L [facility] POC potassium 4.7 3.5 - 5.[address] [facility] mmol/L [facility] POC chloride 108 99 - 109 mmol/L [facility] POC CO2 25 24 - 31 mmol/L [facility] POC glucose 126 (H) 65 - 99 mg/dL [facility] POC BUN 25 (H) 8 - 24 mg/dL [facility] POC creatinine 1.4 (H) 0.7 - 1.2 mg/dl [facility] POC hematocrit 38 (L) 41 - 51 % [facility] POC anion gap 15 8 - 20 mmol/L [facility] Comment: HOSPITAL Meter ID: [id number] Infusion Rn: Josh Singletary Specimen Performing Organization Address City/[facility]/Zipcode Phone Number [facility] DEPARTMENT OF PATHOLOGY AND [address] [place], [place] [address] GENOMIC MEDICINE [facility] [address] [place] [address] ECG 12 lead (07/05/2019 10:31 AM CDT) Pathologist Sig nature Ventricular rate 57 [facility] Atrial rate 57 [facility] NV interval 178 [facility] QRSD interval 100 [facility] QT interval 440 [facility] QTC interval 428 [facility] P axis 1 69 [facility] QRS axis 1 -3 [facility] T wave axis 74 [facility] EKG impression Sinus [facility] MUSE bradycardia-Cannot rule out Anterior infarct , age undetermined-Abnormal ECG-No previous ECGs available-Electronicall y Signed By Nicole WESLEY, Simin ([id number]) on 07/05/2019 3:37:11 PM Specimen Narrative Performed At This result has an attachment that is no t available. 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
--- OUTSIDE RECORDS SUMMARY | 2020-06-16 18:51 | XMS REPORT | Clinical Summary ---
:1960 Author Organization [facility] Address [address] [place] [address] Care Team Providers Name Role Phone Bruce Garcia MD Primary Care Provider Allergies Active Allergy Reactions Severity Noted Date Comments Sulfamethoxazole-Trimethoprim Nausea And Vomiting 03/11 Levofloxacin Nausea And Vomiting 03/21/2019 Medications Medication Sig Dispensed Refills Start Date End Date Status rosuvastatin (CRESTOR) Take 40 mg by 0 Active 5 MG tablet mouth nightly . aspirin 81 MG EC tablet Take 81 mg by 0 Active mouth daily. ERGOCALCIFEROL, VITAMIN Take 2,000 Units 0 Active D2, (VITAMIN D2 ORAL) by mouth daily . Active Problems Problem Noted Date Urethral [...] Not on file Results Not on fileafter 06/16/2019 Insurance Payer Benefit Plan / Subscriber ID Type Phone Address Group BLUE CROSS/BLUE BCBS HMO xxxxxxxxxxxx HMO/POS [phone] [address] [id number] SHIELD BL[place] [phone] Advance Directives For more information, please contact:[facility] [place], [place] [phone] Code Status Date Activated Date Inactivated Comments Full Code 12/10/2016 4:04 PM 12/11/2016 3:02 PM This code status was determined by: Patient
--- OUTSIDE RECORDS SUMMARY | 2020-06-16 18:52 | XMS REPORT | Continuity of Care Document ---
:1960 Author Organization [facility] t Address [address] [place] [address] Care Team Providers Name Role Phone Bruce Garcia MD Primary Care Physician Lab, Fam Pob I Attending Clinician Unavailable Marry WESLEY, R. Attending Clinician Jesus Knapp MD Attending Clinician Radha WESLEY Attending Clinician DEBBIE FANG Attending Clinician Unavailable DEBBIE FANG Admitting Clinician Unavailable Payers Payer Name Policy Policy Number Effective Expiration Source Type Date Date BCBS[employer]ALTHSELECT IN xxxxxxxxxxxx 2017 [facility] BLUE 00:00:00 [place] ESSENTIALSxxxxxxxxxxx [id number] Problems Condition Condition Condition Status Onset Resolution Last Treating Co mments Source Name Details Category Date Date Treatment Clinician Date ASCVD ASCVD Disease Active Overview: Rhett mosquera (arteriosc (arteriosc 07-03 Added Me thodi lerotic lerotic 00:00: automatic st cardiovasc cardiovasc 00 ally from ular ular request disease) disease) for surgery [id number] History of History of Disease Active Overview : Vidal coronary coronary 07-03 Added Method i artery artery 00:00: automatic st stent stent 00 ally from placement placement request for surgery [id number] Hx of CABG Hx of CABG Disease Active Overview : Vidal 07-03 Added Methodi 00:00: automatic st 00 ally from request for surgery [id number] Coronary Coronary Disease Active Overview: Elliott sun artery artery 07-03 Added Methodi disease disease 00:00: automatic st involving involving 00 ally from port gamble port gamble request heart with heart with for angina angina surgery pectoris pectoris [id number] Urethral U[facility]ral Disease [facility] 3-02 Luke s - 00:00: Medical 00 [place] 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 00:00: st 00 Erectile Erectile Disease Active [place] dysfunctio dysfunctio 04-17 Wi thodi n n 00:00: st 00 Allergies, Adverse Reactions, Alerts Allergy Allergy Status Severity Reaction(s) Onset Inactive Treating Comm ents Source Name Type Date Date Clinician Morphine Propensi Active Other (See Hallucina Vidal ty to Comments) 07-04 tion Methodi adverse 00:00: st reaction 00 s to drug Sulfamet Propensi Active Nausea And [facility] I St hoxazole ty to Vomiting 6-11 [facility] - -Trimeth adverse 00:00: Medical oprim reaction 00 [place] s Levoflox Propensi Active Nausea And [facility] I [facility] acin ty to Vomiting 6-11 [facility] - adverse 00:00: Medical reaction 00 [place] s Sulfamet Propensi Active Hives Bactrim [place] hoxazole ty to 3-06 gives him Metho di -Trimeth adverse 00:00: hives and st oprim reaction 00 nauseau s to drug Levoflox Propensi Active Other (See nauseaMak Vidal acin ty to Comments) 16 es Methodi adverse 00:00: patient st reaction 00 regurgita s to te/vomit drug and can feel liquidly acid coming up his windpipe Penicill Propensi Active Anaphylaxis, Throat Vidal ins ty to Swelling 7-07 swellsHap Metho di adverse 00:00: pened 30 st reaction 00 years ago s to but drug hasn't recently happened. Social History Social Habit Start Date Stop Date Quantity Comments Source Sex Assigned At [facility] ethodist Alcohol intake 2019-07-06 2019-07-06 Current Mensah Me thodist 00:00:00 00:00:00 non-drinker of alcohol (finding) Smoking Status Start Date Stop Date Source Never smoker Mensah Methodis t Medications Ordered Filled Start Stop Current Ordering Indication Dosage Frequency Signature Comments Components Source Medication Medication Date Date Medication? Clinician (SIG) Name Name INSULIN Yes Inject [place]ah REGULAR, 07-06 under the Method i HUMAN 10:02: skin st (INSULIN 13 continuous PUMP) 500 ly. Total unit/mL of 70 units daily ergocalcife Yes 2000U Take 2,000 Mensah rol - Units by Methodi (DRISDOL) 10:02: mouth. st 8,000 13 unit/mL drops docusate Yes 100mg Q.5D Take 100 [place] sodium 9-26 mg by Methodi (COLACE) 10:02: mouth 2 st 100 MG 13 (two) capsule times a day. cholecalcif Yes 2000U QD Take 2,000 Mensah jacinto, - Units by Methodi vitamin D3, 10:02: mouth st (VITAMIN 13 daily. D3) 2,000 unit tablet aspirin 2018- No 81mg QD Take 81 mg Shawn ston (ECOTRIN) 07-06 by mouth Metho di 81 MG 07:24: 00:[address] enteric 38 :00 coated tablet aspirin 2018- No 81mg QD Take 1 [place] (ECOTRIN) 07-06 12-25 tablet (81 Met hodi 81 MG 00:00: 23:59 mg total) st enteric 00 :00 by mouth coated daily for tablet 90 days. prasugrel 2018- No 10mg QD Take 1 [place] (EFFIENT) 07-06-25 tablet (10 Met hodi 10 mg 00:00: 23:59 mg total) st tablet 00 :00 by mouth daily for 90 days. rosuvastati 2018- No 10mg QD Take 10 mg Mensah n (CRESTOR) 07-04 by mouth Met hodi 10 MG 12:44: 00:[address] tablet 17 :00 aspirin-gabriel 2018- No 81mg Take 81 mg Mensah cium 07-03 by mouth. Methodi carbonate 16:09: 00:00 st 81 mg-300 32 :00 mg calcium(777 mg) tablet aspirin 2019-0 2019- No 81mg Take 81 mg Shawn ston (ECOTRIN) 07-03 by mouth. Meth bishop 81 MG 16:09: 00:00 st enteric 29 :00 coated tablet HUMALOG Yes Total of [place] U-100 7-25 70 units a Methodi INSULIN 100 00:00: day via st unit/mL 00 the injection insulin pump prasugrel 2018- No 10mg QD Take 10 mg [place] (EFFIENT) 707-06 by mouth Metho di 10 mg 00:00: 00:[address] tablet 00 :00 VASCEPA 1 Yes 2g Q.5D 2 g 2 [place]ah gram 6-27 (two) Methodi capsule 00:00: times a st 00 day. rosuvastati Yes 40mg QD Take [address] [facility] (CRESTOR) 6-11 by mouth Luke s - 5 MG tablet 09:45: nightly . edical 25 [place] ERGOCALCIFE Yes 2000U QD Take 2,[address] ROL, 6-11 Units by [facility] - VITAMIN D2, 09:45: mouth Medic al (VITAMIN D2 25 daily . Cente r ORAL) rosuvastati 2017-10 Yes 40mg QD Take 40 mg [place] n (CRESTOR) 2-27 by mouth Meth bishop 40 MG 00:00: nightly. st tablet 00 metoprolol 2017-10 Yes 25mg Q.5D Take 25 mg [place] succinate 2-14 by mouth 2 Meth bishop XL 00:00: (two) st (TOPROL-XL) 00 times a 25 mg 24 hr day. tablet furosemide 2017-10 Yes 40mg Take 40 mg [place] (LASIX) 40 2-06 by mouth Metho di mg tablet 00:00: as needed. st 00 nitroglycer 2017-[address] 0.4 [place] in 1-27 mg under Methodi (NITROSTAT) 00:00: the tongue st 0.4 MG SL 00 every 5 tablet (five) minutes as needed. aspirin 81 Yes 81mg QD Take [address] MG EC 2-17 by mouth [facility] - tablet 10:43: daily. [address] valsartan 2019- No 80mg QD Take 80 mg [place] (DIOVAN) 80 5-04 09-24 by mouth Met hodi MG tablet 00:00: 00:[address] 00 :00 RANEXA 500 2016- 2019- No 500mg Q.5D Take 500 [place] mg 12 hr ER 02-11 mg by Method i tablet 00:00: 00:[address] 00 :00 (two) times a day. Vital Signs Vital Name Observation Time Observation Value Comments Source Heart rate 2019-07-06 07:24:00 66 /min Rodrick Collado Systolic blood 2019-07-06 07:15:00 168 mm[Hg] [place] n Mormon pressure Diastolic blood 2019-07-06 07:15:00 81 mm[Hg] [place] on Mormon pressure Body temperature 2019-07-06 07:15:00 37.22 Lisseth [place] ton [place] Respiratory rate 2019-07-06 07:15:00 28 /min Omar ton [place] Oxygen saturation in 2019-07-06 07:15:00 98 /min Rodrick Collado Arterial blood by Pulse oximetry Body height 2019-07-05 10:35:00 181.6 cm Rodrick Collado Body weight 2019-07-05 10:35:00 95.737 kg Rodrick Collado BMI 2019-07-05 10:35:00 29.03 kg/m2 Rodrick Collado Procedures Procedure Date / Time Performed Performing Clinician Sourc e POC GLUCOSE 2019-07-06 07:12:00 bAad Tuttle BASIC METABOLIC PANEL 2019-07-06 03:20:00 Rene Jiménez ESTIMATED GFR 2019-07-06 03:20:00 Abad Tuttle ECG PRE/POST OP 2019-07-06 03:01:42 Abad Tuttle HC COMPLETE BLD COUNT 2019-07-06 03:00:00 Rene Jiménez W/AUTO DIFF ECG PRE/POST OP 2019-07-05 17:36:20 Rene Jiménez POC GLUCOSE 2019-07-05 17:29:00 Abad Tuttle CV PERCUTANEOUS CORONARY 2019-07-05 16:40:00 Abad Tuttle INTERVENTION ACTIVATED CLOTTING TIME 2019-07-05 15:04:00 Abad Tuttle ton Mormon ESTIMATED GFR 2019-07-05 13:39:00 Abad Tuttle Meth odist POC PANEL 2019-07-05 13:39:00 Abad Tuttle Meth odist POC GLUCOSE 2019-07-05 10:56:00 Abad Tuttle Meth odist ECG 12-LEAD 2019-07-05 10:31:17 Abad Tuttle odist Plan of Care Planned Activity Planned Date Details Comments Source Future Scheduled 2020-07-11 INFLUENZA VACCINE [place] [facility] Test 00:00:00 [code = INFLUENZA VACCINE] Future Scheduled 2009 COLONOSCOPY SCREENING [place] Test 00:00:00 [code = COLONOSCOPY SCREENING] Future Scheduled 2009 SHINGLES VACCINES [place] [facility] Test 00:00:00 (#1) [code = SHINGLES VACCINES (#1)] Encounters Start End Encounter Admission Attending Care Care Encounter Source Date/Time Date/Time Type Type Clinicians Facility Department ID 2020-05-03 2020-05-03 Laboratory Lab, [facility] [id number] 16:14:00 16:34:00 Only Fam Pob I Health [id number] [place] [id number] Professio [id number] nal [address] One Results Test Description Test Time Test Comments Results Result Comments Source ECG Pre/Post Op 2019-07-06 08:52:56 Test Item Value Reference Range Interpretation Comme nts Ventricular rate (test code = 253) 62 Atrial rate (test code = 255) 62 ID interval (test code = 266) 178 QRSD interval (test code = 260) 102 QT interval (test code = 264) 438 QTC interval (test code = 265) 444 P axis 1 (test code = 267) 67 QRS axis 1 (test code = 268) -2 T wave axis (test code = 270) 81 EKG impression (test code = 273) Normal sinus rhythm-Possible Left atrial enlargement-Incomplete right bundle branch block-Nonspecific ST abnormality-Abnormal ECG-In automated comparison with ECG of 05-JUL-2019 17:36,-Incomplete right bundle branch block is now present- Rodrick Peter [id number] 07:14:00 Test Item Value Reference Range Interpretation Comments POC glucose (test code = 160 mg/dL 65-99 H [facility] Notified 73789-7) RNMeter ID: [id number] tor: Nas Leon Lab Interpretation (test Abnormal code = 10771-2) [facility] [id number] 06:56:28 ELCA Laser Atherectomy 60/60 x 3 runs of mid RCA ISR. 3.5 mm Angiosculpt/Chocolate/NC POBA of the ISR segment. Brachytherapy 23 Gy for 5:45 minutes to the mid RCA. Attending: Dr. Abad Tuttle Interventional Fellow: Rene Jiménez MD EQUIPMENT/ANTICOAGULATION: Right Radial [id number] Sheath [id number] Catheter Mohinder Blue, Whisper, Hi-Torque Floppy XS coronary wire Anticoagulation: Angiomax bolus and Infusion with ACT >250 sec prior to procedure PROCEDURAL DETAILS: The RCA was engaged withthe FR4 Guide Catheter and a Mohinder Blue coronary wire was advanced into the distal PDA. Initially wewere not entirely sure if we had not gone underneath a stent strut, thus we also wired with a whisper coronary wire which easily passed through. We then exchanged this using a finecross which tracked well with a Hi- Torque Floppy XS and withdrew the Mohinder Blue coronary wire. We initially attempted to advance IVUS and we were able to see that it was not able to advance past the stent struts. Area at this point was at most 2.5 mm2. We thus went in with a Trek 3.0 x 6 mm semi-compliant balloon and dilated the stent ISR with multiple high pressure inflations. We then used a 3.5 x 8 mm NC Emerge and dilated multiple times. We also used a 3.5 mm Chocolate balloon and inflated in the ISR segments in addition to Angiosculpt balloon. We noted that the acute marginal had pinched off but came back later in the case. We then advanced ELCA laser atherectomy 0.9 and performed laser atherectomy of the underexpanded stent and ISR at 60/60 for three runs. We then advanced a guideliner to bring the brachytherapy catheter but ultimately withdrew the 6F guideliner. We advanced the 3.5F beta rail catheter and for a reference lumen diameter of 3.5 mm and lesion length 25 mm, we chose a 40 mm length source at 23 Gy for 5:45 minutes. We then dilated with a 3.5 mm NC balloon. Final angiography revealed no evidence of dissection or perforation; there was JAYCE 3 flow and 0% residual stenosis. HEMOSTASIS: Tracelet ADDITIONAL POST-PROCEDURE MEDICATIONS: PLAN: 1. ASA 81mg daily2. Prasugrel 10mg daily . 3. Cardiac medical therapy and aggressive risk factor modification. Cardiac rehabilitation. 4. Transferred in stable condition [facility] metabolic [id number] 03:53:43 Test Item Value Reference Range Interpretation Comments Sodium (test code = 2951-2) 138 135- 148 mEq/L Potassium (test code = 2823-3) 4.3 3.5- 5.0 mEq/L Chloride (test code = 2075-0) 104 98- 112 mEq/L CO2 (test code = 2027-9) 22 24- 31 mEq/L L Anion gap (test code = 03025-5) 12@ANIO 7- 15 mEq/L BUN (test code = 3094-0) 23 mg/dL 8-23 Creatinine (test code = 2160-0) 1.49 mg/dL 0.7-1.2 H Glucose (test code = 2345-7) 300 mg/dL 65-99 H Calcium (test code = 26438-5) 8.5 mg/dL 8.8-10.2 L Lab Interpretation (test code = Abnormal 65820-1) Vidal MethodistEstimated [id number] 03:53:43 Test Item Value Reference Range Interpretation Comments Estimated GFR (test 50 mL/min/1.73 m2 Kellie jaramillo Units code = 5488) InterpretationG 1 >=90 Donna l or highG2 60-89 Mildly decrease dG3a 45-59 Mil dly to moderately decr ebyacX2s 30-44 Moderately to s everely decreasedG4 15-29 Severe ly decreasedG5 <15 Kidney gumaro lureThe eGFR was calcul ated using the Chron Kidney Disease Epidemiology Collaboration ( CKD-EPI) equation. Interpretation is based on recommendati ons of the National [facility]-Kidn ey Disease Outcome s Quality Initiat beth (NKF-KDOQI) pub lished in 2013. Lab Interpretation Abnormal (test code = 03428-0) [facility] with platelet and [id number] 03:22:52 Test Item Value Reference Range Interpretation Comments WBC (test code = 78207-5) 6.17 4.50- 11.00 k/uL RBC (test code = 90554-0) 4.25 m/uL 4.4-6 L HGB (test code = 718-7) 12.3 g/dL 14-18 L HCT (test code = 4544-3) 38.2 % 41-51 L MCV (test code = 787-2) 89.9 fL 82-100 MCH (test code = 785-6) 28.9 pg 27-34 MCHC (test code = 786-4) 32.2 g/dL 31-37 RDW - SD (test code = 42.9 fL 37-55 01719-2) MPV (test code = 88307-9) 10.9 fL 8.8-13.2 Platelet count (test code 146 150- 400 k/uL L = 50975-2) Nucleated RBC (test code 0.00 /100 WBC = 94235-1) Neutrophils (test code = 51.9 % 39-69 11080-0) Lymphocytes (test code = 30.0 % 25-45 88935-9) Monocytes (test code = 12.3 % 0-10 H 32277-9) Eosinophils (test code = 4.5 % 0-5 45423-2) Basophils (test code = 0.8 % 0-1 45004-9) Immature granulocytes 0.5 % 0-1 "Immat ure (test code = 82207-2) granul ocytes" (promyelocytes, myelocytes, metamyelocytes) Lab Interpretation (test Abnormal code = 21880-6) Rodrick MethodistActivated clotting [id number] 15:53:51 Test Item Value Reference Range Interpretation Comments Activated clotting time 399 96- 152 sec H Mete r ID: (test code = 5298 412393NQU perator: Carroll Vi Lab Interpretation (test Abnormal code = 98361-0) [facility]rick [facility] [id number] 15:37:11 Test Item Value Reference Range Interpretation Comments Ventricular rate (test 57 code = 253) Atrial rate (test code = 57 255) ID interval (test code = 178 266) QRSD interval (test code 100 = 260) QT interval (test code = 440 264) QTC interval (test code 428 = 265) P axis 1 (test code = 69 267) QRS axis 1 (test code = -3 268) T wave axis (test code = 74 270) EKG impression (test Sinus code = 273) bradycardia-Cannot rule out Anterior infarct , age undetermined-Abnormal ECG-No previous ECGs available-Electronica lly Signed By Simin Rivera MD ([id number]) on 07/05/2019 3:37:11 PM Vidal MethodistPOC [id number] 13:42:02 Test Item Value Reference Range Interpretation Comments POC sodium (test code = 142 mmol/L 340-234 6640-0) POC potassium (test code 4.7 mmol/L 3.5-5 = 6298-4) POC chloride (test code = 108 mmol/L 99-109 2069-3) POC CO2 (test code = 25 mmol/L 24-31 71910-6) POC glucose (test code = 126 mg/dL 65-99 H 2339-0) POC BUN (test code = 25 mg/dL 8-24 H 6299-2) POC creatinine (test code 1.4 mg/dl 0.7-1.2 H = 48409-6) POC hematocrit (test code 38 % 41-51 L = 4544-3) POC anion gap (test code 15 mmol/L 8-20 Met er ID: = [id number]) [id number]: Josh Singletary Lab Interpretation (test Abnormal code = 64497-6) Vidal MethodistHEMOGLOBIN AND [id number] 09:24:00 Test Item Value Reference Range Interpretation Comments HEMOGLOBIN (BEAKER) (test code = 9.8 GM/DL 13.0-16.8 L 410) HEMATOCRIT (BEAKER) (test code = 29.7 % 40.0-50.0 L 411) POCT-GLUCOSE [id number] 08:04:00 Test Item Value Reference Range Interpretation Comments POC-GLUCOSE METER 59 mg/dL 70-110 L TESTED AT [facility] 67[address] (BEAKER) (test code = [place] [address] 1538) BASIC METABOLIC [id number] 06:07:00 Test Item Value Reference Range Interpretation Comments SODIUM (BEAKER) 140 meq/L 136-145 (test code = 381) POTASSIUM (BEAKER) 4.2 meq/L 3.5-5.1 (test code = 379) CHLORIDE (BEAKER) 114 meq/L 98-107 H (test code = 382) CO2 (BEAKER) (test 20 meq/L 22-29 L code = 355) BLOOD UREA NITROGEN 16 mg/dL 7-21 (BEAKER) (test code = 354) CREATININE (BEAKER) 1.23 mg/dL 0.57-1.25 (test code = 358) GLUCOSE RANDOM 93 mg/dL 70-105 (BEAKER) (test code = 652) CALCIUM (BEAKER) 6.8 mg/dL 8.4-10.2 L (test code = 697) EGFR (BEAKER) (test 61 mL/min/1.73 ESTIMA DINA GFR IS code = 1092) sq m NOT ACCURATE CREATININE CLEARANCE IN PREDICTING GLOMERULAR FILTRATION RATE . ESTIMATED GFR I S NOT APPLICABLE FOR DIALYSIS PATIEN TS. POCT-GLUCOSE [id number] 22:08:00 Test Item Value Reference Range Interpretation Comments POC-GLUCOSE METER 200 mg/dL 70-110 H TESTED AT [facility] 67[address] ([facility] (test code = [facility] Skyler [facility] 1538) [address] POCT-GLUCOSE [id number] 17:00:00 Test Item Value Reference Range Interpretation Comments POC-GLUCOSE METER 289 mg/dL 70-110 H TESTED AT [facility] 67[address] ([facility]) (test code = [facility] 1538) [address] BASIC METABOLIC [id number] 14:43:00 Test Item Value Reference Range Interpretation Comments SODIUM (BEAKER) 141 meq/L 136-145 (test code = 381) POTASSIUM (BEAKER) 4.1 meq/L 3.5-5.1 (test code = 379) CHLORIDE (BEAKER) 116 meq/L 98-107 H (test code = 382) CO2 (BEAKER) (test 17 meq/L 22-29 L code = 355) BLOOD UREA NITROGEN 31 mg/dL 7-21 H (BEAKER) (test code = 354) CREATININE (BEAKER) 1.66 mg/dL 0.57-1.25 H (test code = 358) GLUCOSE RANDOM 261 mg/dL 70-105 H (BEAKER) (test code = 652) CALCIUM (BEAKER) 7.3 mg/dL 8.4-10.2 L (test code = 697) EGFR (BEAKER) (test 43 mL/min/1.73 ESTIMA DINA GFR IS code = 1092) sq m NOT ACCURATE CREATININE CLEARANCE IN PREDICTING GLOMERULAR FILTRATION RATE . ESTIMATED GFR I S NOT APPLICABLE FOR DIALYSIS PATIEN TS. HEMOGLOBIN AND [id number] 14:32:00 Test Item Value Reference Range Interpretation Comments HEMOGLOBIN (BEAKER) (test code = 10.0 GM/DL 13.0-16.8 L 410) HEMATOCRIT (BEAKER) (test code = 28.4 % 40.0-50.0 L 411) POCT-GLUCOSE [id number] 13:51:00 Test Item Value Reference Range Interpretation Comments POC-GLUCOSE METER 282 mg/dL 70-110 H TESTED AT [facility] 6720 (BEAKER) (test code = IRMA [place] [facility] 1538) [address] SODIUM NA-STAT [id number] 13:16:00 Test Item Value Reference Range Interpretation Comments SODIUM (BEAKER) (test code = 381) 137 meq/L 135-148 POTASSIUM-STAT [id number] 13:16:00 Test Item Value Reference Range Interpretation Comments POTASSIUM (BEAKER) (test code = 4.1 meq/L 3.6-5.5 379) BLOOD GAS, [id number] 13:16:00 Test Item Value Reference Range Interpretation Comments PH ARTERIAL (BEAKER) (test code = 7.32 7.35-7.45 L 383) PCO2 ARTERIAL (BEAKER) (test code 36 mmHg 35-45 = 384) PO2 ARTERIAL (BEAKER) (test code 521 mmHg 80-90 H = 385) O2 SATURATION ARTERIAL (BEAKER) 99.9 % 96.0-97.0 H (test code = 386) HCO3 ARTERIAL (BEAKER) (test code 18 mmol/L 21-29 L = 388) BASE EXCESS ARTERIAL (BEAKER) -7.0 mmol/L -2.0-3.0 L (test code = 387) PATIENT TEMPERATURE (BEAKER) 37.0 C (test code = 1818) FIO2 (BEAKER) (test code = 1819) 100.0 % GLUCOSE-STAT [id number] 13:16:00 Test Item Value Reference Range Interpretation Comments GLUCOSE RANDOM (BEAKER) (test code 295 mg/dL 70-110 H = 652) HGB/HCT (H&H) - STAT [id number] 13:16:00 Test Item Value Reference Range Interpretation Comments HEMOGLOBIN (BEAKER) (test code = 9.9 g/dL 13.0-16.8 L 410) HEMATOCRIT (BEAKER) (test code = 29.0 % 40.0-50.0 L 411) CALCIUM, [id number] 13:16:00 Test Item Value Reference Range Interpretation Comments CALCIUM IONIZED (BEAKER) (test 1.04 mmol/L 1.12-1.27 L code = 698) PH, BLOOD (BEAKER) (test code = 7.32 1810) BLOOD GAS, [id number] 12:22:00 Test Item Value Reference Range Interpretation Comments PH ARTERIAL (BEAKER) (test code = 7.33 7.35-7.45 L 383) PCO2 ARTERIAL (BEAKER) (test code 31 mmHg 35-45 L = 384) PO2 ARTERIAL (BEAKER) (test code 259 mmHg 80-90 H = 385) O2 SATURATION ARTERIAL (BEAKER) 99.6 % 96.0-97.0 H (test code = 386) HCO3 ARTERIAL (BEAKER) (test code 16 mmol/L 21-29 L = 388) BASE EXCESS ARTERIAL (BEAKER) -9.4 mmol/L -2.0-3.0 L (test code = 387) PATIENT TEMPERATURE (BEAKER) 37.0 C (test code = 1818) FIO2 (BEAKER) (test code = 1819) 21.0 % GLUCOSE-STAT [id number] 12:22:00 Test Item Value Reference Range Interpretation Comments GLUCOSE RANDOM (BEAKER) (test code 322 mg/dL 70-110 H = 652) HGB/HCT (H&H) - STAT [id number] 12:22:00 Test Item Value Reference Range Interpretation Comments HEMOGLOBIN (BEAKER) (test code = 9.7 g/dL 13.0-16.8 L 410) HEMATOCRIT (BEAKER) (test code = 29.0 % 40.0-50.0 L 411) CALCIUM, [id number] 12:22:00 Test Item Value Reference Range Interpretation Comments CALCIUM IONIZED (BEAKER) (test 0.99 mmol/L 1.12-1.27 L code = 698) PH, BLOOD (BEAKER) (test code = 7.33 1810) SODIUM NA-STAT [id number] 12:18:00 Test Item Value Reference Range Interpretation Comments SODIUM (BEAKER) (test code = 381) 136 meq/L 135-148 POTASSIUM-STAT [id number] 12:18:00 Test Item Value Reference Range Interpretation Comments POTASSIUM (BEAKER) (test code = 4.4 meq/L 3.6-5.5 379) BLOOD GAS, [id number] 11:22:00 Test Item Value Reference Range Interpretation Comments PH ARTERIAL (BEAKER) (test code = 7.35 7.35-7.45 383) PCO2 ARTERIAL (BEAKER) (test code 33 mmHg 35-45 L = 384) PO2 ARTERIAL (BEAKER) (test code 312 mmHg 80-90 H = 385) O2 SATURATION ARTERIAL (BEAKER) 99.7 % 96.0-97.0 H (test code = 386) HCO3 ARTERIAL (BEAKER) (test code 17 mmol/L 21-29 L = 388) BASE EXCESS ARTERIAL (BEAKER) -7.4 mmol/L -2.0-3.0 L (test code = 387) PATIENT TEMPERATURE (BEAKER) 37.0 C (test code = 1818) FIO2 (BEAKER) (test code = 1819) 21.0 % GLUCOSE-STAT [id number] 11:22:00 Test Item Value Reference Range Interpretation Comments GLUCOSE RANDOM (BEAKER) (test code 352 mg/dL 70-110 H = 652) HGB/HCT (H&H) - STAT [id number] 11:22:00 Test Item Value Reference Range Interpretation Comments HEMOGLOBIN (BEAKER) (test code = 10.4 g/dL 13.0-16.8 L 410) HEMATOCRIT (BEAKER) (test code = 31.0 % 40.0-50.0 L 411) CALCIUM, [id number] 11:22:00 Test Item Value Reference Range Interpretation Comments CALCIUM IONIZED (BEAKER) (test 1.03 mmol/L 1.12-1.27 L code = 698) PH, BLOOD (BEAKER) (test code = 7.35 1810) SODIUM NA-STAT [id number] 11:21:00 Test Item Value Reference Range Interpretation Comments SODIUM (BEAKER) (test code = 381) 136 meq/L 135-148 POTASSIUM-STAT [id number] 11:21:00 Test Item Value Reference Range Interpretation Comments POTASSIUM (BEAKER) (test code = 5.4 meq/L 3.6-5.5 379) SODIUM NA-STAT [id number] 08:47:00 Test Item Value Reference Range Interpretation Comments SODIUM (BEAKER) (test code = 381) 135 meq/L 135-148 POTASSIUM-STAT [id number] 08:47:00 Test Item Value Reference Range Interpretation Comments POTASSIUM (BEAKER) (test code = 4.4 meq/L 3.6-5.5 379) BLOOD GAS, [id number] 08:47:00 Test Item Value Reference Range Interpretation Comments PH ARTERIAL (BEAKER) (test code = 7.39 7.35-7.45 383) PCO2 ARTERIAL (BEAKER) (test code 35 mmHg 35-45 = 384) PO2 ARTERIAL (BEAKER) (test code 261 mmHg 80-90 H = 385) O2 SATURATION ARTERIAL (BEAKER) 99.6 % 96.0-97.0 H (test code = 386) HCO3 ARTERIAL (BEAKER) (test code 21 mmol/L 21-29 = 388) BASE EXCESS ARTERIAL (BEAKER) -4.0 mmol/L -2.0-3.0 L (test code = 387) PATIENT TEMPERATURE (BEAKER) 37.0 C (test code = 1818) FIO2 (BEAKER) (test code = 1819) 100.0 % GLUCOSE-STAT [id number] 08:47:00 Test Item Value Reference Range Interpretation Comments GLUCOSE RANDOM (BEAKER) (test code 183 mg/dL 70-110 H = 652) HGB/HCT (H&H) - STAT [id number] 08:47:00 Test Item Value Reference Range Interpretation Comments HEMOGLOBIN (BEAKER) (test code = 10.5 g/dL 13.0-16.8 L 410) HEMATOCRIT (BEAKER) (test code = 31.0 % 40.0-50.0 L 411) CALCIUM, [id number] 08:47:00 Test Item Value Reference Range Interpretation Comments CALCIUM IONIZED (AKER) (test 1.06 mmol/L 1.12-1.27 L code = 698) PH, BLOOD ([facility]) (test code = 7.39 1810) [id number] 06:53:00 Test Item Value Reference Range Interpretation Comments POTASSIUM (BEAKER) (test code = 4.9 meq/L 3.6-5.5 379) POCT-GLUCOSE [id number] 06:45:00 Test Item Value Reference Range Interpretation Comments POC-GLUCOSE METER 208 mg/dL 70-110 H TESTED AT [facility] 6720 ([facility]) (test code = IR[place] 1538) [address] URINE [id number] 12:35:00 Test Item Value Reference Range Interpretation Comments CULTURE ([facility]) ENTEROCOCCUS A >100,000 co l/mL (test code = 1095) SPECIES Enterococ cus species Ampicillin (test Susceptible >=17 S code = 26) , Resistant <17 Linezolid (test code Susceptible >=23 S = 40) , Resistant <23 Nitrofurantoin (test Susceptible >=17 S code = 23) , Resistant <17 Tetracycline (test Susceptible >=19 R code = 2) , Resistant <19 Vancomycin (test S code = 13) CBC W/PLT COUNT & AUTO [id number] 11:52:00 Test Item Value Reference Range Interpretation Comments WHITE BLOOD CELL COUNT (AKER) 5.6 K/ L 4.0-10.0 (test code = 775) RED BLOOD CELL COUNT (AKER) 4.27 M/ L 4.20-5.80 (test code = 761) HEMOGLOBIN (BEAKER) (test code = 13.5 GM/DL 13.0-16.8 410) HEMATOCRIT (BEAKER) (test code = 40.3 % 40.0-50.0 411) MEAN CORPUSCULAR VOLUME (AKER) 94.3 fL 82.0-98.0 (test code = 753) MEAN CORPUSCULAR HEMOGLOBIN 31.6 pg 27.0-33.0 (AKER) (test code = 751) MEAN CORPUSCULAR HEMOGLOBIN CONC 33.5 GM/DL 32.0-36.0 (BEAKER) (test code = 752) RED CELL DISTRIBUTION WIDTH 12.4 % 10.3-14.2 (BEAKER) (test code = 412) PLATELET COUNT (BEAKER) (test 205 K/CU MM 150-430 code = 756) MEAN PLATELET VOLUME (BEAKER) 7.6 fL 6.5-10.5 (test code = 754) NUCLEATED RED BLOOD CELLS 0 /100 WBC 0-0 (BEAKER) (test code = 413) NEUTROPHILS RELATIVE PERCENT 47 % (BEAKER) (test code = 429) LYMPHOCYTES RELATIVE PERCENT 37 % (BEAKER) (test code = 430) MONOCYTES RELATIVE PERCENT 11 % (BEAKER) (test code = 431) EOSINOPHILS RELATIVE PERCENT 5 % (BEAKER) (test code = 432) BASOPHILS RELATIVE PERCENT 1 % (BEAKER) (test code = 437) NEUTROPHILS ABSOLUTE COUNT 2.60 K/ L 1.80-8.00 (BEAKER) (test code = 670) LYMPHOCYTES ABSOLUTE COUNT 2.08 K/ L 1.48-4.50 (BEAKER) (test code = 414) MONOCYTES ABSOLUTE COUNT (BEAKER) 0.61 K/ L 0.00-1.30 (test code = 415) EOSINOPHILS ABSOLUTE COUNT 0.26 K/ L 0.00-0.50 (BEAKER) (test code = 416) BASOPHILS ABSOLUTE COUNT (BEAKER) 0.04 K/ L 0.00-0.20 (test code = 417) 0.00COMPREHENSIVE METABOLIC [id number] 11:47:00 Test Item Value Reference Range Interpretation Comments TOTAL PROTEIN 7.4 gm/dL 6.0-8.3 Specimen sligh tly (BEAKER) (test code = hemoly zed 770) ALBUMIN (BEAKER) 4.1 g/dL 3.5-5.0 Specimen sl ightly (test code = 1145) hemolyzed ALKALINE PHOSPHATASE 119 U/L 40-150 (BEAKER) (test code = 346) BILIRUBIN TOTAL 0.7 mg/dL 0.2-1.2 Specimen sli ghtly (BEAKER) (test code = hemoly zed 377) SODIUM (BEAKER) (test 140 meq/L 136-145 code = 381) POTASSIUM (BEAKER) 5.7 meq/L 3.5-5.1 H Specimen slightly (test code = 379) hemolyzed CHLORIDE (BEAKER) 108 meq/L 98-107 H (test code = 382) CO2 (BEAKER) (test 21 meq/L 22-29 L code = 355) BLOOD UREA NITROGEN 31 mg/dL 7-21 H (BEAKER) (test code = 354) CREATININE (BEAKER) 1.68 mg/dL 0.57-1.25 H Specimen slightly (test code = 358) hemolyzed GLUCOSE RANDOM 217 mg/dL 70-105 H (BEAKER) (test code = 652) CALCIUM (BEAKER) 9.1 mg/dL 8.4-10.2 (test code = 697) AST (SGOT) (BEAKER) 24 U/L 5-34 Specimen slightly (test code = 353) hemolyzed ALT (SGPT) (BEAKER) 26 U/L 6-55 Specimen slightly (test code = 347) hemolyzed EGFR (BEAKER) (test 42 mL/min/1.73 ESTIMA DINA GFR IS code = 1092) sq m NOT ACCURATE CREATININE CLEARANCE IN PREDICTING GLOMERULAR FILTRATION RATE . ESTIMATED GFR I S NOT APPLICABLE FOR DIALYSIS PATIEN TS. URINALYSIS W/ [id number] 11:46:00 Test Item Value Reference Range Interpretation Comments COLOR (BEAKER) (test code = 470) Yellow CLARITY (BEAKER) (test code = 469) Clear SPECIFIC GRAVITY UA (BEAKER) (test 1.014 1.001-1.035 code = 468) PH UA (BEAKER) (test code = 467) 5.5 5.0-8.0 PROTEIN UA (BEAKER) (test code = 10 mg/dL Negative A 464) GLUCOSE UA (BEAKER) (test code = 200 mg/dL Negative A 365) KETONES UA (BEAKER) (test code = Negative Negative 371) BILIRUBIN UA (BEAKER) (test code = Negative Negative 462) BLOOD UA (BEAKER) (test code = 461) Trace Negative A NITRITE UA (BEAKER) (test code = Negative Negative 465) LEUKOCYTE ESTERASE UA (BEAKER) Large Negative A (test code = 466) UROBILINOGEN UA (BEAKER) (test code 0.2 mg/dL 0.2-1.0 = 463) RBC UA (BEAKER) (test code = 519) 19 /HPF WBC UA (BEAKER) (test code = 520) 115 /HPF BACTERIA (BEAKER) (test code = 517) Many MUCUS (BEAKER) (test code = 1574) Rare SQUAMOUS EPITHELIAL (BEAKER) (test < /HPF code = 516) SOURCE(BEAKER) (test code = 2795)
[2020-06-16] MEDS ORDERED: NA CHLORIDE 0.9% 1,000 ML ONE ×2 (19:29→19:30)
[2020-06-16] MEDS ORDERED: ONDANSETRON 4 MG/2 ML VIAL ONE (19:33)
[2020-06-16] MEDS ORDERED: FENTANYL CITR 100 MCG/2 ML ONE (19:33)
[2020-06-16 19:39] LABS: Absolute Lymphocytes (CBC) 1.9 K/uL (0.7-4.9); Basophils % 0.9 % (0-1.3); Hematocrit 38.7 % (39.6-49.0); Lymphocytes % 31.4 % (15.3-44.8); MPV 8.2 fL (7.6-11.3); RBC Red Blood Cell Count 4.44 M/uL (4.33-5.43)
[2020-06-16 19:56] LABS: Albumin 3.9 g/dL (3.4-5.0); Bilirubin Direct 0.1 mg/dL (0-0.2); Bilirubin Total 0.4 mg/dL (0.2-1.0); Potassium 4.2 mmol/L (3.5-5.1); Protein, Total 8.2 g/dL (6.4-8.2)
--- NOTE | 2020-06-16 20:48 | RAD REPORT ---
EXAM DESCRIPTION: US - Abdomen Exam Limited - 06/16/2020 8:28 pm CLINICAL HISTORY: Abdominal pain. COMPARISON: None. FINDINGS: Patient was not NPO which limits exam. 3 millimeter gallbladder polyp. The gallbladder wall is not thickened. A gallstone is not seen. The biliary tree is normal caliber. IMPRESSION: 3 millimeter gallbladder polyp
--- NOTE | 2020-06-16 21:19 | RAD REPORT ---
EXAM DESCRIPTION: CT - Abdomen Pelvis Wo Contrast - 06/16/2020 9:02 pm CLINICAL HISTORY: Abdominal pain COMPARISON: 2018 TECHNIQUE: Computed axial tomography of the abdomen and pelvis was obtained. IV and oral contrast we re not requested. All CT scans are performed using dose optimization technique as appropriate and may include automated exposure control or mA/KV adjustment according to patient size. FINDINGS: The evaluation of solid organs, vessels and bowel is limited secondary to the lack of con trast administration. The liver, spleen, pancreas, adrenals and kidneys appear grossly normal. 3 centimeter lipoma right lateral pelvis unchanged. There is no evidence diverticulitis. Atherosclerotic disease The evaluation of the appendix is limited secondary to the lack of oral contrast. An abnormal appendi x is not visualized. Spondylolysis L5 IMPRESSION: No acute abnormality is displayed.
--- NOTE | 2020-06-16 21:38 | ER ---
Nurse's Notes [facility] Name: Florencio Holm Jr Age: 60 yrs Sex: Male : 1960 Arrival Date: 06/16/2020 Time: 18:51 Bed 16 Private MD: Daniel Garcia E Diagnosis: Abdominal tenderness;Nausea and vomiting Presentation: 06/16 19:10 Chief complaint: Patient states: i have right side abdominal pain and nausea for the mg2 last 3 days. Coronavirus screen: Client denies travel out of the [place] in the last 14 days. The client reports previous COVID testing was negative. 5 weeks ago at [facility]. Ebola Screen: No symptoms or risks identified at this time. Initial Sepsis Screen: Does the patient meet any 2 criteria? No. Patient's initial sepsis screen is negative. Does the patient have a suspected source of infection? No. Patient's initial sepsis screen is negative. Risk Assessment: Do you want to hurt yourself or someone else? Patient reports no desire to harm self or others. Onset of symptoms was June 16, 2020. 19:10 Method Of Arrival: Ambulatory mg2 19:10 Acuity: FANI 3 mg2 Historical: - Allergies: 19:14 bactrim; mg2 19:14 Levaquin; mg2 - Home Meds: 19:14 Insulin pump [Active]; rosuvastatin Oral [Active]; Metoprolol Tartrate Oral [Active]; mg2 - PMHx: 19:14 CAD; Diabetes - IDDM; Hyperlipidemia; Hypertension; mg2 - PSHx: 19:14 abdominal sx when he was 6 weeks old; heart bypass; heart stents; mg2 - Immunization history:: Flu vaccine status is unknown. - Social history:: Smoking status: Patient denies any tobacco usage or history of. Screenin:55 Abuse screen: Denies threats or abuse. Nutritional screening: No deficits noted. ea Tuberculosis screening: No symptoms or risk factors identified. Fall Risk IV access (20 points). Assessment: 19:20 General: Appears uncomfortable, Behavior is appropriate for age. Pain: Complains of ea pain in right upper quadrant. Neuro: Level of Consciousness is awake, alert, obeys commands, Oriented to person, place, time, situation. Cardiovascular: Respiratory: Airway is patent Respiratory effort is even, unlabored, Respiratory pattern is regular, symmetrical. GI: Bowel sounds present X 4 quads. Abdomen is tender to palpation in right upper quadrant. Derm: Skin is pink, warm \T\ dry. 19:59 Reassessment: ultrasound at bedside. ea 20:24 Reassessment: Patient and/or family updated on plan of care and expected duration. Pain ea level reassessed. Patient is alert, oriented x 3, equal unlabored respirations, skin warm/dry/pink. 21:37 General: Appears comfortable, Behavior is calm, cooperative. Pain: Denies pain. Neuro: rv Level of Consciousness is awake, alert, obeys commands, Oriented to person, place, time, situation. GI: Patient currently denies. Vital Signs: 19:10 BP 158 / 80; Resp 18; Temp 98.2; Weight 95.25 kg; Height 5 ft. 11 in. (180.34 cm); mg2 20:25 BP 166 / 81; Pulse 73; Resp 18; Pulse Ox 98% ; ea 21:30 BP 142 / 80; Pulse 72; Resp 17; Pulse Ox 100% on R/A; rv 21:36 Pain 0/10; rv 19:10 Body Mass Index 29.29 (95.25 kg, 180.34 cm) mg2 ED Course: 18:51 Patient arrived in ED. ag5 18:51 Daniel Garcia MD is Private Physician. ag5 19:05 Willa Rojas, KURT is Primary Nurse. ll2 19:10 Miguel Weston MD is Attending Physician. tw4 19:11 Triage completed. mg2 19:15 Arm band placed on. mg2 19:56 Patient has correct armband on for positive identification. Bed in low position. Call ea light in reach. Side rails up X 1. 20:00 No provider procedures requiring assistance completed. Inserted saline lock: 20 gauge rv in left antecubital area, using aseptic technique. Blood collected. 20:28 US Abdomen Limited In Process Unspecified. EDMS 21:01 CT Abd/Pelvis - Without Contrast In Process Unspecified. EDMS 21:36 Daniel Garcia MD is Referral Physician. tw4 21:47 IV discontinued, intact, bleeding controlled, No redness/swelling at site. Pressure rv dressing applied. Administered Medications: 09:25 Drug: NS 0.9% 1000 ml Route: IV; Rate: 1 bolus; Site: left antecubital; ea 21:37 Follow up: IV Status: Completed infusion; IV Intake: 1000ml rv 19:30 Drug: Zofran (Ondansetron) 4 mg Route: IVP; Site: left antecubital; ea 21:37 Follow up: Response: No adverse reaction rv 19:32 Drug: fentaNYL (PF) 25 mcg Route: IVP; Site: left antecubital; ea 21:37 Follow up: Response: No adverse reaction; Marked relief of symptoms; Pain is decreased; rv RASS: Alert and Calm (0) Intake: 21:37 IV: 1000ml; Total: 1000ml. rv Outcome: 21:38 Discharge ordered by . tw4 21:47 Discharged to home ambulatory. rv 21:47 Condition: good 21:47 Discharge instructions given to patient, Instructed on discharge instructions, follow up and referral plans. medication usage, Demonstrated understanding of instructions, follow-up care, medications, Prescriptions given X 2. 21:47 Patient left the ED. rv Signatures: Dispatcher [employer] EDFatimah Olvera RN Miguel Calixto ea, MD MD tw4 Addy Ruff RN KURT [facility] Celso Sheffield RN Milly Giles [facility] Willa Rojas RN RN ll2 Corrections: (The following items were deleted from the chart) 21:01 20:52 In radiology for Abdomen . EDCA EDMS
--- NOTE | 2020-06-16 21:38 | EDPHYS ---
Physician Documentation [facility] Name: Florencio Holm Jr Age: 60 yrs Sex: Male : 1960 Arrival Date: 06/16/2020 Time: 18:51 Bed 16 Private MD: Daniel Garcia E ED Physician Miguel Weston HPI: 06/16 19:27 This 60 yrs old Male presents to ER via Ambulatory with complaints of tw4 Abdominal Pain, Side Pain. 19:27 The patient presents with abdominal pain. Onset: The symptoms/episode began/occurred 3 tw4 day(s) ago. The symptoms do not radiate. Associated signs and symptoms: Pertinent positives: nausea and vomiting, Pertinent negatives: anorexia, blood in stools, constipation, diarrhea, dysuria, palpitations, shortness of breath, testicular pain. The symptoms are described as dull. Modifying factors: The symptoms are alleviated by nothing, the symptoms are aggravated by nothing. Severity of pain: At its worst the pain was moderate in the emergency department the pain is unchanged. The patient has not experienced similar symptoms in the past. Historical: - Allergies: 19:14 bactrim; mg2 19:14 Levaquin; mg2 - Home Meds: 19:14 Insulin pump [Active]; rosuvastatin Oral [Active]; Metoprolol Tartrate Oral [Active]; mg2 - PMHx: 19:14 CAD; Diabetes - IDDM; Hyperlipidemia; Hypertension; mg2 - PSHx: 19:14 abdominal sx when he was 6 weeks old; heart bypass; heart stents; mg2 - Immunization history:: Flu vaccine status is unknown. - Social history:: Smoking status: Patient denies any tobacco usage or history of. ROS: 19:27 Constitutional: Negative for fever, chills, and weight loss, Eyes: Negative for injury, tw4 pain, redness, and discharge, Cardiovascular: Negative for chest pain, palpitations, and edema, Respiratory: Negative for shortness of breath, cough, wheezing, and pleuritic chest pain, Back: Negative for injury and pain, MS/Extremity: Negative for injury and deformity, Skin: Negative for injury, rash, and discoloration, Neuro: Negative for headache, weakness, numbness, tingling, and seizure. 19:27 Abdomen/GI: Positive for abdominal pain, nausea and vomiting, Negative for nausea and vomiting, constipation, abdominal cramps, abdominal distension, anorexia, dysphagia, hematemesis, black/tarry stool, rectal pain. Exam: 19:27 Constitutional: This is a well developed, well nourished patient who is awake, alert, tw4 and in no acute distress. Head/Face: Normocephalic, atraumatic. Chest/axilla: Normal chest wall appearance and motion. Nontender with no deformity. No lesions are appreciated. Cardiovascular: Regular rate and rhythm with a normal S1 and S2. No gallops, murmurs, or rubs. Normal PMI, no JVD. No pulse deficits. Respiratory: Lungs have equal breath sounds bilaterally, clear to auscultation and percussion. No rales, rhonchi or wheezes noted. No increased work of breathing, no retractions or nasal flaring. MS/ Extremity: Pulses equal, no cyanosis. Neurovascular intact. Full, normal range of motion. Neuro: Awake and alert, GCS 15, oriented to person, place, time, and situation. Cranial nerves II-XII grossly intact. Motor strength 5/5 in all extremities. Sensory grossly intact. Cerebellar exam normal. Normal gait. 19:27 Abdomen/GI: Inspection: abdomen appears normal, Bowel sounds: diminished, Palpation: moderate abdominal tenderness, in the right upper quadrant. Vital Signs: 19:10 BP 158 / 80; Resp 18; Temp 98.2; Weight 95.25 kg; Height 5 ft. 11 in. (180.34 cm); mg2 20:25 BP 166 / 81; Pulse 73; Resp 18; Pulse Ox 98% ; ea 21:30 BP 142 / 80; Pulse 72; Resp 17; Pulse Ox 100% on R/A; rv 21:36 Pain 0/10; rv 19:10 Body Mass Index 29.29 (95.25 kg, 180.34 cm) mg2 MDM: 19:10 Patient medically screened. tw4 09 02:20 Data reviewed: vital signs, nurses notes. Data interpreted: Pulse oximetry: tw4 Interpretation: normal. Counseling: I had a detailed discussion with the patient and/or guardian regarding: the historical points, exam findings, and any diagnostic results supporting the discharge/admit diagnosis, lab results, radiology results. Medication response: Zofran relieved the patient's nausea. Response to treatment: and as a result, I will discharge patient. Special discussion: Based on the patient's Hx, exam, and Dx evaluation, there is no indication for emergent surgery or inpatient Tx. It is understood by the patient/guardian that if the Sx's persist or worsen they need to return immediately for re-evaluation. I discussed with the patient/guardian in detail that at this point there is no indication for admission to the hospital. It is understood, however, that if the symptoms persist or worsen the patient needs to return immediately for re-evaluation. 06/16 19:12 Order name: Basic Metabolic Panel [facility] 06/16 19:12 Order name: CBC with Diff; Complete Time: 20:29 [facility] 06/16 21:35 Interpretation: Normal except: HCT 38.7; HGB 12.8. [facility] 06/16 19:13 Order name: Hepatic Function [facility] 06/16 19:13 Order name: Lipase [facility] 06/16 19:13 Order name: Basic Metabolic Panel; Complete Time: 20:29 [facility] 06/16 21:35 Interpretation: Normal except: GFR 28; GLUC 221; BUN 28; CRE 2.38. [facility] 06/16 19:13 Order name: Liver (Hepatic) Function; Complete Time: 20:29 [facility] 06/16 19:13 Order name: Lipase; Complete Time: 20:29 [facility] 06/16 21:35 Interpretation: Normal except: LIP 34. [facility] 06/16 19:20 Order name: US Abdomen Limited; Complete Time: 21:35 [facility] 06/16 19:58 Order name: CREATININE WHOLE BLOOD; Complete Time: 20:29 [facility] 06/16 21:36 Interpretation: Abnormal: CREATININE WB 2.2. [facility] 06/16 20:58 Order name: CT Abd/Pelvis - Without Contrast; Complete Time: 21:35 [facility] 06/16 19:13 Order name: IV Saline Lock; Complete Time: 19:22 tw 06/16 19:13 Order name: Labs collected and sent; Complete Time: 19:22 tw4 Administered Medications: 06/16 09:25 Drug: NS 0.9% 1000 ml Route: IV; Rate: 1 bolus; Site: left antecubital; ea 21:37 Follow up: IV Status: Completed infusion; IV Intake: 1000ml rv 19:30 Drug: Zofran (Ondansetron) 4 mg Route: IVP; Site: left antecubital; ea 21:37 Follow up: Response: No adverse reaction rv 19:32 Drug: fentaNYL (PF) 25 mcg Route: IVP; Site: left antecubital; ea 21:37 Follow up: Response: No adverse reaction; Marked relief of symptoms; Pain is decreased; rv RASS: Alert and Calm (0) Disposition: 06/16/20 21:38 Discharged to Home. Impression: Abdominal tenderness, Nausea and vomiting. - Condition is Stable. - Discharge Instructions: Abdominal Pain, Adult, [id number]. - Prescriptions for Bentyl 20 mg Oral Tablet - take 1 tablet by ORAL route every 6 hours As needed; 20 tablet. Zofran 4 mg Oral Tablet - take 1 tablet by ORAL route every 12 hours As needed; 20 tablet. - Medication Reconciliation Form, Thank You Letter, Antibiotic Education, Prescription Opioid Use form. - Follow up: Daniel Garcia MD; When: Upon discharge from the Emergency Department; Reason: Recheck today's complaints, Continuance of care, Re-evaluation by your physician. - Problem is new. - Symptoms have improved. Signatures: Dispatcher [employer] EDLA Fatimah Akers RN RN Miguel More MD MD tw4 Addy Ruff, RN RN [facility] [place] Celso Sheffield RN RN rv Corrections: (The following items were deleted from the chart) 20:48 19:13 Abdomen Pelvis W Con+CT.RAD.BRZ ordered. EDLA EDLA 21:01 20:48 Abdomen ordered. [facility] EDLA 21:47 21:38 06/16/2020 21:38 Discharged to Home. Impression: Abdominal tenderness; Nausea and rv vomiting. Condition is Stable. Forms are Medication Reconciliation Form, Thank You Letter, Antibiotic Education, Prescription Opioid Use. Follow up: Daniel Garcia; When: Upon discharge from the Emergency Department; Reason: Recheck today's complaints, Continuance of care, Re-evaluation by your physician. Problem is new. Symptoms have improved. tw4
[2020-06-17 17:01] VITALS: TEMP 98.2
[2020-06-17 17:03] VITALS: BP 142/80; O2SAT 100
== END 2020-06-16 21:47 | disposition home or self-care (01) ==
LOC: ER 18:48
DX: R11.2 Nausea with vomiting, unspecified (principal); I10 Essential (primary) hypertension; E11.9 Type 2 diabetes mellitus without complications; Z96.41 Presence of insulin pump (external) (internal); Z79.4 Long term (current) use of insulin; Z88.1 Allergy status to other antibiotic agents; Z95.818 Presence of other cardiac implants and grafts
CPT/HCPCS: 96361; 85025; 80048; 36415; 82565; 80076; 83690; 74176; 76705; 96375; 96374; 99284; J3010; J7030 ×2; J2405

== ENCOUNTER → 2020-08-27 | Day surgery (SDC) | payer BC ==
--- NOTE | 2020-08-23 11:59 | RAD REPORT ---
EXAM DESCRIPTION: RAD - Chest Pa And Lat (2 Views) - 08/23/2020 11:39 am CLINICAL HISTORY: left heart cath COMPARISON: Two view chest March 28, 2019 TECHNIQUE: Frontal and lateral views of the chest were obtained. FINDINGS: The lungs are clear of an acute infiltrate or mass. Chronic interstitial pattern matches c omparison. Minimal left hemidiaphragm elevation also without change. Sternotomy wires are in place. Heart size is normal and central vasculature is within normal limits. No pleural effusion or pneumo thorax seen. No acute bony finding noted. No aortic abnormality. IMPRESSION: No acute cardiopulmonary process. Above detailed chronic changes match comparison.
[2020-08-23 12:15] LABS: Absolute Lymphocytes (CBC) 1.7 K/uL (0.7-4.9); Hematocrit 35.9 % (39.6-49.0); MPV 8.4 fL (7.6-11.3); RBC Red Blood Cell Count 4.07 M/uL (4.33-5.43)
[2020-08-23 12:17] LABS: Protime INR 0.92
[2020-08-23 12:24] LABS: Potassium 4.4 mmol/L (3.5-5.1)
[~2020-08-27] MED LIST: FENTANYL CITR 100 MCG/2 ML ONE; HEPA 1000U/500MLS 1,000 UNIT/500 ML BAG IV ONE; HEPARIN 500 UNIT/5 ML SYR IV ONE; LIDOCAINE 1% 20 ML MDV ONE; MIDAZOLAM HCL 2 MG/2 ML INJ ONE; NA CHLORIDE 0.9% 500 ML ONE; cloNIDine HCL 0.1 MG TAB ONE
--- OUTSIDE RECORDS SUMMARY | 2020-08-27 06:39 | XMS REPORT | Clinical Summary ---
:1960 Author Organization [facility] Address [address] [place] [address] Care Team Providers Name Role Phone Radha hSankar MD Primary Care Provider Allergies Active Allergy [...] Start Date End Date Status INSULIN REGULAR, HUMAN Inject under 0 Active (INSULIN PUMP) 500 the skin unit/mL continuously. Total of 70 units daily ergocalciferol Take 2,000 0 Acti ve (DRISDOL) 8,000 Units by mouth. unit/mL drops metoprolol succinate Take 25 mg by 0 09/23/2018 Active XL (TOPROL-XL) 25 mg mouth 2 (two) 24 hr tablet times a day. VASCEPA 1 gram capsule 2 g 2 (two) 0 04/06/2019 Active times a day. furosemide (LASIX) 40 Take 40 mg by 0 09/15/2018 Active mg tablet mouth as needed. nitroglycerin Place 0.4 mg 0 09/06/2018 Ac tive (NITROSTAT) 0.4 MG SL under the tablet tongue every 5 (five) minutes as needed. rosuvastatin (CRESTOR) Take 40 mg by 0 10/06/2018 Active 40 MG tablet mouth nightly. HUMALOG U-100 INSULIN Total of 70 0 05/04/2019 Active 100 unit/mL injection units a day via the insulin pump docusate sodium Take 100 mg by 0 Active (COLACE) 100 MG mouth 2 (two) capsule times a day. cholecalciferol, Take 2,000 0 Ac tive vitamin D3, (VITAMIN Units by mouth D3) 2,000 unit tablet daily. aspirin (ECOTRIN) 81 Take 1 tablet 90 tablet 2 07/06/201909/11 MG enteric coated (81 mg total) tablet by mouth daily for 90 days. prasugrel (EFFIENT) 10 Take 1 tablet 90 tablet 2 07/06/2019 mg tablet (10 mg total) by mouth daily for 90 days. Active Problems Problem Noted Date ASCVD (arteriosclerotic cardiovascular disease) 2018 Overview: Added automatically from request for evin kaylie [id number] History of coronary artery stent placement 07/03/2019 Overview: Added automatically from request for evin kaylie [id number] Hx of CABG 07/03/2019 Overview: Added automatically from request for evin kaylie [id number] Coronary artery disease involving kletsel dehe [place] heart with an lisa pectoris 07/03/2019 Overview: Added automatically from request for evin kaylie [id number] Penile implant failure 05/25/2016 Erectile dysfunction 04/17/2016 Surgical History Surgery Date Site/Laterality Comments BYPASS GRAFT 10/11/2012 - double 10/10/2013 STOMACH SURGERY age 5 to enlarge muscle-had proje ctive vomiting BYPASS GRAFT 10/11/2012 - double 10/10/2013 EYE SURGERY woke up before s urgery was over CARDIAC SURGERY MO INSERT,INFLATABLE PENILE 04/17/2016 Penis/N/A Proc edure: PENILE PROSTHESIS PROSTHESIS INSER TION ; Surgeon: Cesar Harding MD; L ocation: [facility]; rvice: Urology Medical devices from this surgery are in the Implants section . REMOVAL, PENILE PROSTHESIS, 05/26/2016 N/A Proc edure: REMOVAL, INFLATABLE PENILE PROSTHESI S, INFLATABLE; Evin geon: Cesar petty MD; Location: [facility] OR; Service: Ur ology; Laterality: N/A; CYSTOSCOPY, WITH SUPRAPUBIC 06/19/2016 N/A Proc edure: CYSTOSCOPY, CATHETER INSERTION SUPRAPUBIC CA THETER INSERTION; Surg christiano: Cesar petty MD; Location: [facility]; Service: Ur ology; Laterality: N/A; CARDIAC CATHETERIZATION 07/05/2019 N/A Procedur e: CV BRACHYTHERAPY; Surgeon: Abad Tuttle MD; Location: [facility] Tile Layer Supervisor [facility]; Service: Cardiol ogy; Laterality: N/A; CARDIAC CATHETERIZATION 07/05/2019 N/A Procedur e: Ivus coronary; Surge on: Abad Tuttle MD; Location: [facility] Tile Layer Supervisor [facility]; Service: Cardiol ogy; Laterality: N/A; CARDIAC CATHETERIZATION 07/05/2019 N/A Procedur e: Pci percutaneous car diac angioplasty; Ocampo rgeon: Abad Tuttle MD; Location: [facility] Tile Layer Supervisor Invasive [facility]; Service: Cardiol ogy; Laterality: N/A; CARDIAC CATHETERIZATION 07/05/2019 N/A Procedur e: Cv percutaneous cor onary intervention; S urgeon: Abad Tuttle MD; Location: [facility] Tile Layer Supervisor Invasive [facility]; Service: Cardiol ogy; Laterality: N/A; Laser Atherectomy Medical History Medical History Date Comments Hypertension Hyperlipidemia Pneumonia age 4 Cough age 4 Angina pectoris (HCC) last time 05/2013 - denies angina/SOB currently Claustrophobia Jaundice as a Chronic kidney disease Anemia Anesthesia woke up during eye s urgery, NFHAP Cataract bilateral extraction s 07/25 Coronary artery disease History of transfusion Myocardial infarction (HCC) 05/2013 Diabetes mellitus (HCC) insulin pump Social History Tobacco Use Types Packs/Day Years Used Date Never Smoker Smokeless Tobacco: Never Used Alcohol Use Drinks/Week oz/Week Comments No Sex Assigned at Date Recorded Not on file Last Filed Vital Signs Not on file Plan of Treatment Health Maintenance Due Date Last Done Comments COLONOSCOPY SCREENING 2009 SHINGLES VACCINES (#1) 2009 INFLUENZA VACCINE 05/11/2020 Implants Implanted Type Area Concrete Pourer Device Shelf Model / Identifier Expiration Serial / Date Lot Skw Deep Scrotal Retract System - [id number] SUPPLIES N/A: AMER ICAN [id number] / Implanted: Qty: 1 on 04/17/2016 by Cesar Harding MD at [facility] PATIENT Penis MEDICAL / BILLABLE SYSTEMS- AMS Spectra Rear Tip Extenders 12mm & 14mm-3cm - [id number] IPM SUPPLI ES N/A: N/A ENGLISH 03/05/2021 [id number] / Implanted: Qty: 1 on 04/17/2016 by Cesar Harding MD at [facility] PATIENT MEDICAL / NON-BILLABLE SYSTEMS- AMS [id number] Injectables Injectables Description:LLQ abdominal area Kit Accy Infltbl Penile Ams 700 - [id number] Urological N/A: Penis AMER ICAN 02/13/2021 [id number] / Implanted: Qty: 1 on 04/17/2016 by Cesar Harding MD at [facility] Implants or Sets MEDICAL SYSTEMS / INC [id number] Implant Penile Ams 700 Lgx Ms Prcnctd Pnscrtl Aprch 18cm - L [id number] Urological N/A: Penis ENGLISH 02/04/2018 [id number] / Implanted: Qty: 1 on 04/17/2016 by Cesar Harding MD at [facility] Implants or Sets MEDICAL SYSTEMS / INC [id number] Implant Penile Rsvr Ams 700 Ms Prcnctd W/ Iz 100ml - [id number] Urological N/A: Penis ENGLISH 09/03/2017 [id number] / Implanted: Qty: 1 on 04/17/2016 by Cesar Harding MD at [facility] Implants or Sets [employer] / INC [id number] Insulin Pump Description:Right upper abdomen area Results Not on fileafter 08/27/2019 Advance Directives For more information, please contact: [phone] Type Date Recorded Patient Learning Consultant Explanati on Advance Directives, Living Will 07/05/2019 9:59 AM and Medical Power of Chief Nurse
--- OUTSIDE RECORDS SUMMARY | 2020-08-27 06:39 | XMS REPORT | Clinical Summary ---
:1960 Author Organization [facility] Address [address] [place] [address] Care Team Providers Name Role Phone Bruce [...] Health Maintenance Due Date Last Done Comments COLON CANCER SCREENING COLONOSCOPY 1960 LIPID PANEL 1994 INFLUENZA VACCINE (#1) 2020 Results Not on fileafter 08/27/2019 Insurance Payer Benefit Plan Subscriber ID Effective Dates Phone Address Type / Group BLUE BCBS HMO [id number] 2017-Brianna [phone] [address] HMO/POS CROSS/BLUE BLUE/[address] [place] [address] Advance Directives For more information, please contact: [phone] Code Status Date Activated Date Inactivated Comments Full Code 12/10/2016 4:04 PM 12/11/2016 3:02 PM This code status was determined by: Patient
--- OUTSIDE RECORDS SUMMARY | 2020-08-27 06:40 | XMS REPORT | Continuity of Care Document ---
:1960 Author Organization [facility] t Address [address] [place] [address] Care Team Providers Name Role Phone Radha Shankar MD Primary Care Physician Lab, Fam Pob I Attending Clinician Unavailable DEBBIE FANG Attending Clinician Unavailable DEBBIE FANG Admitting Clinician Unavailable Problems Condition Condition Condition Status Onset Resolution Last Treating Co mments Source Name Details Category Date Date Treatment Clinician Date ASCVD ASCVD Disease Active Overview: Rhett mosquera (arteriosc (arteriosc 07-03 Added Me thodi lerotic lerotic 00:00: automatic st cardiovasc cardiovasc 00 ally from ular ular request disease) disease) for surgery [id number] History of History of Disease Active Overview : [place] coronary coronary 07-03 Added Method i artery artery 00:00: automatic st stent stent 00 ally from placement placement request for surgery [id number] Hx of CABG Hx of CABG Disease Active Overview : [place] 07-03 Added Methodi 00:00: automatic st 00 ally from request for surgery [id number] Coronary Coronary Disease Active Overview: [facility] artery artery 07-03 Added Methodi disease disease 00:00: automatic st involving involving 00 ally [place] request heart with heart with for angina angina surgery pectoris pectoris [id number] Urethral Urethral Disease [facility] Penile Penile Disease Active [place] implant implant 8-15 Methodi failure failure 00:00: st 00 Erectile Erectile Disease Active [place] dysfunctio dysfunctio 08 Me thodi n n 00:00: st 00 Allergies, Adverse Reactions, Alerts Allergy Allergy Status Severity Reaction(s) Onset Inactive Treating Comm ents Source Name Type Date Date Clinician Morphine Propensi Active Other (See Hallucina [place] ty to Comments) 9 tion Methodi adverse 00:00: st reaction 00 s to drug Sulfamet Propensi Active Nausea And [facility] hoxazole ty to Vomiting 03-21 [facility] - -Trimeth adverse 00:00: Medical oprim reaction 00 Center s Levoflox Propensi Active Nausea And [facility] acin ty to Vomiting 6- [facility] - adverse 00:00: Medical reaction 00 Center s Sulfamet Propensi Active Hives Bactrim [place] hoxazole ty to 12-14 gives him Metho di -Trimeth adverse 00:00: hives and st oprim reaction 00 nauseau s to drug Levoflox Propensi Active Other (See nauseaMak [place] acin ty to Comments) 816 es Methodi adverse 00:00: patient st reaction 00 regurgita s to te/vomit drug and can feel liquidly acid coming up his windpipe Penicill Propensi Active Anaphylaxis, Throat [place] ins ty to Swelling 04-16 swellsHap Metho di adverse 00:00: pened 30 st reaction 00 years ago s to but drug hasn't recently happened. Social History Social Habit Start Date Stop Date Quantity Comments Source Sex Assigned At [facility] Tobacco use and 2019-03-21 2019-03-21 Never used [facility] - exposure 00:00:00 00:00:00 [facility] Alcohol intake 2019-03-21 2019-03-[address] [facility] es - 00:00:00 00:00:00 non-drinker of Medical nter alcohol (finding) Smoking Status Start Date Stop Date Source Never smoker [facility] Medications Ordered Filled Start Stop Current Ordering Indication Dosage Frequency Signature Comments Components Source Medication Medication Date Date Medication? Clinician (SIG) Name Name INSULIN Yes Inject [place] REGULAR, 9-26 under the Method i HUMAN 10:02: skin st (INSULIN 13 continuous PUMP) 500 ly. Total unit/mL of 70 units daily ergocalcife Yes 2000U Take 2,000 [place] rol 9-26 Units by Methodi (DRISDOL) 10:02: mouth. st 8,000 13 unit/mL drops docusate Yes 100mg Q.5D Take 100 [place] sodium 9-26 mg by Methodi (COLACE) 10:02: mouth 2 st 100 MG 13 (two) capsule times a day. cholecalcif Yes 2000U QD Take 2,000 [place] jacinto, 9-26 Units by Methodi vitamin D3, 10:02: mouth st (VITAMIN 13 daily. D3) 2,000 unit tablet aspirin 2019- No 81mg QD Take 1 [place] (ECOTRIN) 9- 12-25 tablet (81 Met hodi 81 MG 00:00: 23:59 mg total) st enteric 00 :00 by mouth coated daily for tablet 90 days. prasugrel 2018- No 10mg QD Take 1 [place] (EFFIENT) - 12-25 tablet (10 Met hodi 10 mg 00:00: 23:59 mg total) st tablet 00 :00 by mouth daily for 90 days. HUMALOG Yes Total of [place] U-100 7-25 70 units a Methodi INSULIN 100 00:00: day via st unit/mL 00 the injection insulin pump VASCEPA 1 Yes 2g Q.5D 2 g 2 [place] gram 6-27 (two) Methodi capsule 00:00: times a st 00 day. aspirin 81 Yes 81mg QD Take [address] MG EC 6-11 by mouth [facility] - tablet 10:00: daily. [address] rosuvastati Yes 40mg QD Take [address] [facility] (CRESTOR) 6-11 by mouth Luke s - 5 MG tablet 09:45: nightly . edical [address] ERGOCALCIFE Yes 2000U QD Take 2,000 [facility] [...] every 5 tablet (five) minutes as needed. Procedures This patient has no known procedures. Plan of Care Planned Activity Planned Date Details Comments Source Future Scheduled 2020-06-[address] [facility] - Test 00:00:00 (#1) [code = [facility] INFLUENZA VACCINE (#1)] Future Scheduled 2020-05-11 INFLUENZA VACCINE [place] [facility] Test 00:00:00 [code = INFLUENZA VACCINE] Future Scheduled 2009 COLONOSCOPY SCREENING [place] [facility] Test 00:00:00 [code = COLONOSCOPY SCREENING] Future Scheduled 2009 SHINGLES VACCINES [place] Test 00:00:00 (#1) [code = SHINGLES VACCINES (#1)] Future Scheduled [address] [facility] - Test 00:00:00 (procedure) [code = [facility] 33764794] Future Scheduled [address] [facility] - Test 00:00:00 malignant neoplasm of [facility] Center colon (procedure) [code = 181207505] Encounters Start End Encounter Admission Attending Care Care Encounter Source Date/Time Date/Time Type Type Clinicians Facility Department ID 2020-05-03 2020-05-03 Laboratory Lab, [facility] [id number] 16:14:00 16:34:00 Only Fam Pob I Health [id number] [place] [id number] Professio [phone] nal 0[address] One Results Test Description Test Time Test Comments Results Result Comments Source HEMOGLOBIN AND HEMATOCRIT 2016-12-11 09:24:00 Test Item Value Reference Range Interpretation Comme nts HEMOGLOBIN (BEAKER) (test code = 410) 9.8 GM/DL 13.0-16.8 L HEMATOCRIT (BEAKER) (test code = 411) 29.7 % 40.0-50.0 L POCT-GLUCOSE [id number] 08:04:00 Test Item Value Reference Range Interpretation Comments POC-GLUCOSE METER 59 mg/dL 70-110 L TESTED AT [facility] 6720 (BEAKER) (test code = [facility] [address]85 1538) BASIC METABOLIC [id number] 06:07:00 Test Item Value Reference Range Interpretation [...] NOT APPLICABLE FOR DIALYSIS PATIEN TS. POCT-GLUCOSE [id number] 22:08:00 Test Item Value Reference Range Interpretation Comments POC-GLUCOSE METER 200 mg/dL 70-110 H TESTED AT [facility] 6720 (BEAKER) (test code = [facility] 1538) [id number] POCT-GLUCOSE [id number] 17:00:00 Test Item Value Reference Range Interpretation Comments POC-GLUCOSE METER 289 mg/dL 70-110 H TESTED AT [facility] 6720 (BEAKER) (test code = [facility] 1538) [id number] BASIC METABOLIC [id number] 14:43:00 Test Item Value Reference Range Interpretation [...] APPLICABLE FOR DIALYSIS PATIEN TS. HEMOGLOBIN AND [id number] 14:32:00 Test Item Value Reference Range Interpretation Comments HEMOGLOBIN (BEAKER) (test code = 10.0 GM/DL 13.0-16.8 L 410) HEMATOCRIT (BEAKER) (test code = 28.4 % 40.0-50.0 L 411) POCT-GLUCOSE [id number] 13:51:00 Test Item Value Reference Range Interpretation Comments POC-GLUCOSE METER 282 mg/dL 70-110 H TESTED AT [facility] 6720 (BEAKER) (test code = [place] 1538) [id number] SODIUM NA-STAT [id number] 13:16:00 Test Item Value Reference Range Interpretation Comments SODIUM (BEAKER) (test code = 381) 137 meq/L 135-148 POTASSIUM-STAT [id number] 13:16:00 Test Item Value Reference Range Interpretation Comments POTASSIUM (BEAKER) (test code = 4.1 meq/L 3.6-5.5 379) BLOOD GAS, [id number] 13:16:00 Test Item Value Reference Range Interpretation [...] (test code = 1819) 100.0 % GLUCOSE-STAT [id number] 13:16:00 Test Item Value Reference Range Interpretation Comments GLUCOSE RANDOM (BEAKER) (test code 295 mg/dL 70-110 H = 652) HGB/HCT (H&H) - STAT [id number] 13:16:00 Test Item Value Reference Range Interpretation Comments HEMOGLOBIN (BEAKER) (test code = 9.9 g/dL 13.0-16.8 L 410) HEMATOCRIT (BEAKER) (test code = 29.0 % 40.0-50.0 L 411) CALCIUM, [id number] 13:16:00 Test Item Value Reference Range Interpretation Comments CALCIUM IONIZED (BEAKER) (test 1.04 mmol/L 1.12-1.27 L code = 698) PH, BLOOD (BEAKER) (test code = 7.32 1810) BLOOD GAS, [id number] 12:22:00 Test Item Value Reference Range Interpretation [...] (test code = 1819) 21.0 % GLUCOSE-STAT [id number] 12:22:00 Test Item Value Reference Range Interpretation Comments GLUCOSE RANDOM (BEAKER) (test code 322 mg/dL 70-110 H = 652) HGB/HCT (H&H) - STAT [id number] 12:22:00 Test Item Value Reference Range Interpretation Comments HEMOGLOBIN (BEAKER) (test code = 9.7 g/dL 13.0-16.8 L 410) HEMATOCRIT (BEAKER) (test code = 29.0 % 40.0-50.0 L 411) CALCIUM, [id number] 12:22:00 Test Item Value Reference Range Interpretation Comments CALCIUM IONIZED (BEAKER) (test 0.99 mmol/L 1.12-1.27 L code = 698) PH, BLOOD (BEAKER) (test code = 7.33 1810) SODIUM NA-STAT [id number] 12:18:00 Test Item Value Reference Range Interpretation Comments SODIUM (BEAKER) (test code = 381) 136 meq/L 135-148 POTASSIUM-STAT [id number] 12:18:00 Test Item Value Reference Range Interpretation Comments POTASSIUM (BEAKER) (test code = 4.4 meq/L 3.6-5.5 379) BLOOD GAS, [id number] 11:22:00 Test Item Value Reference Range Interpretation [...] (test code = 1819) 21.0 % GLUCOSE-STAT [id number] 11:22:00 Test Item Value Reference Range Interpretation Comments GLUCOSE RANDOM (BEAKER) (test code 352 mg/dL 70-110 H = 652) HGB/HCT (H&H) - STAT [id number] 11:22:00 Test Item Value Reference Range Interpretation Comments HEMOGLOBIN (BEAKER) (test code = 10.4 g/dL 13.0-16.8 L 410) HEMATOCRIT (BEAKER) (test code = 31.0 % 40.0-50.0 L 411) CALCIUM, [id number] 11:22:00 Test Item Value Reference Range Interpretation Comments CALCIUM IONIZED (BEAKER) (test 1.03 mmol/L 1.12-1.27 L code = 698) PH, BLOOD (BEAKER) (test code = 7.35 1810) SODIUM NA-STAT [id number] 11:21:00 Test Item Value Reference Range Interpretation Comments SODIUM (BEAKER) (test code = 381) 136 meq/L 135-148 POTASSIUM-STAT [id number] 11:21:00 Test Item Value Reference Range Interpretation Comments POTASSIUM (BEAKER) (test code = 5.4 meq/L 3.6-5.5 379) SODIUM NA-STAT [id number] 08:47:00 Test Item Value Reference Range Interpretation Comments SODIUM (BEAKER) (test code = 381) 135 meq/L 135-148 POTASSIUM-STAT [id number] 08:47:00 Test Item Value Reference Range Interpretation Comments POTASSIUM (BEAKER) (test code = 4.4 meq/L 3.6-5.5 379) BLOOD GAS, [id number] 08:47:00 Test Item Value Reference Range Interpretation [...] (test code = 1819) 100.0 % GLUCOSE-STAT [id number] 08:47:00 Test Item Value Reference Range Interpretation Comments GLUCOSE RANDOM (BEAKER) (test code 183 mg/dL 70-110 H = 652) HGB/HCT (H&H) - STAT [id number] 08:47:00 Test Item Value Reference Range Interpretation Comments HEMOGLOBIN (BEAKER) (test code = 10.5 g/dL 13.0-16.8 L 410) HEMATOCRIT (BEAKER) (test code = 31.0 % 40.0-50.0 L 411) CALCIUM, [id number] 08:47:00 Test Item Value Reference Range Interpretation Comments CALCIUM IONIZED (BEAKER) (test 1.06 mmol/L 1.12-1.27 L code = 698) PH, BLOOD (AKER) (test code = 7.39 1810) [id number] 06:53:00 Test Item Value Reference Range Interpretation Comments POTASSIUM (BEAKER) (test code = 4.9 meq/L 3.6-5.5 379) POCT-GLUCOSE [id number] 06:45:00 Test Item Value Reference Range Interpretation Comments POC-GLUCOSE METER 208 mg/dL 70-110 H TESTED AT [facility] 67[address] ([facility]) (test code = [place] 1538) [id number] URINE [id number] 12:35:00 Test Item Value Reference Range Interpretation Comments CULTURE ([facility]) ENTEROCOCCUS A >100,000 co l/mL (test code [...] = 13) CBC W/PLT COUNT & AUTO [id number] 11:52:00 Test Item Value Reference Range Interpretation Comments WHITE BLOOD CELL COUNT (AKER) 5.6 K/ L 4.0-10.0 (test code = 775) RED BLOOD CELL COUNT (AKER) 4.27 M/ L 4.20-5.80 (test code = 761) HEMOGLOBIN (BEAKER) (test code = 13.5 GM/DL 13.0-16.8 410) HEMATOCRIT (BEAKER) (test code = 40.3 % 40.0-50.0 411) MEAN CORPUSCULAR VOLUME (BEAKER) 94.3 fL 82.0-98.0 (test code = 753) MEAN CORPUSCULAR HEMOGLOBIN 31.6 pg 27.0-33.0 (BEAKER) (test code = 751) MEAN CORPUSCULAR HEMOGLOBIN [...] 0.00-0.20 (test code = 417) 0.00COMPREHENSIVE METABOLIC [id number] 11:47:00 Test Item Value Reference Range Interpretation [...] APPLICABLE FOR DIALYSIS PATIEN TS. URINALYSIS W/ [id number] 11:46:00 Test Item Value Reference Range Interpretation [...]
[2020-08-27 08:56] VITALS: TEMP 97
[2020-08-27 10:26] VITALS: BP 110/57; O2SAT 100
--- NOTE | 2020-08-27 12:57 | OP ---
Date of Procedure: 08/27/2020 Surgeon: Jarad Peres MD Procedures: Left heart catheterization, selective coronary arteriogram, injection of the vein graft and LEON. Indication: CAD and abnormal stress test for preop clearance for cholecystectomy by Dr. Mckeon. History Of Present Illness: Mr. Holm is 60 years old. Has had a history of bypass surgery. Has had a history of multiple RCA stents as well as brachytherapy before his last stent. Needed a stress test before cardiac clearance, which was positive. That was positive and ischemic in the inferior w all. Procedure In Detail: He was brought to the laboratory inspector today as an outpatient. He was prepped and drap ed in the routine sterile fashion. Given Versed for sedation after introducing a 7-Mongolian catheter i n the right common femoral vein. A 6-Mongolian sheath was introduced in the right common femoral artery . 15 cc of Xylocaine were used and we used a Seldinger technique. A JR4 catheter was used to cannul ate the graft to the OM, which was patent, LEON to the LAD which was patent. The napaimute RCA, which s howed patent stent without any restenosis. There was a very large right dominant RCA. The LAD was c ompletely occluded. There were no complications. Blood Loss: 5 mL. Anesthesia: Total conscious sedation was 30 minutes. Final Diagnosis: Severe coronary artery disease, but patent LEON to the LAD, vein graft to the OM, a nd patent RCA stent. We will continue medical therapy. The patient will be cleared for surgery by Gemini Mckeon. The case was discussed with the patient and his . Angio-Seal was used to close the case. Pressure was held in the femoral vein after the catheterization. The patient will be going home today in 2 hours. I will see him in the office in the next 2 weeks. EDMOND/CARIN Voice ID: [id number] Report ID: [id number]
== END | disposition home or self-care (01) ==
LOC: CCL 06:37
DX: I25.10 Atherosclerotic heart disease of native coronary artery without angina pectoris (principal); I25.82 Chronic total occlusion of coronary artery; I10 Essential (primary) hypertension; E78.5 Hyperlipidemia, unspecified; E11.9 Type 2 diabetes mellitus without complications; Z95.1 Presence of aortocoronary bypass graft; Z95.5 Presence of coronary angioplasty implant and graft; Z88.2 Allergy status to sulfonamides; Z88.3 Allergy status to other anti-infective agents; Z88.6 Allergy status to analgesic agent; Z20.828 Contact with and (suspected) exposure to other viral communicable diseases
CPT/HCPCS: 85025; 80048; 36415; 85610; 85730; 71046; 93455; U0002; C1893; C1760; J2250; J3010; J1642; J7040; J1644

== ENCOUNTER 2020-08-29 07:59 | Day surgery (SDC) | payer BC ==
[2020-08-28 13:07] LABS: ALT/SGPT 25 U/L (12-78); AST/SGOT 19 U/L (15-37); Albumin 3.5 g/dL (3.4-5.0); Alkaline Phosphatase 65 U/L (45-117); Amylase 21 U/L (25-115); Bilirubin Direct < 0.1 mg/dL (0-0.2); Bilirubin Total 0.3 mg/dL (0.2-1.0); Lipase 47 U/L (73-393); Protein, Total 7.3 g/dL (6.4-8.2)
--- OUTSIDE RECORDS SUMMARY | 2020-08-29 08:02 | XMS REPORT | Clinical Summary ---
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 07/03/2019 Overview: Added automatically from request for evin kaylie [id number] 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 REMOVAL, PENILE PROSTHESIS, 05/26/2016 N/A Proc edure: REMOVAL, INFLATABLE PENILE PROSTHESI S, INFLATABLE; Evin geon: Cesar petty MD; Location: [facility] MAIN OR; Service: Ur ology; Laterality: N/A; CYSTOSCOPY, WITH SUPRAPUBIC 06/19/2016 N/A Proc edure: CYSTOSCOPY, CATHETER INSERTION SUPRAPUBIC CA THETER INSERTION; Surg christiano: Cesar petty MD; Location: [facility] MAIN OR; Service: Ur ology; Laterality: N/A; CARDIAC CATHETERIZATION 07/05/2019 N/A Procedur e: CV BRACHYTHERAPY; Surgeon: Abad Tuttle MD; Location: [facility] Parking Regulation Enforcement Officer [facility]; Service: Cardiol ogy; Laterality: N/A; CARDIAC CATHETERIZATION 07/05/2019 N/A Procedur e: Ivus coronary; Surge on: Abad Tuttle MD; Location: [facility] Parking Regulation Enforcement Officer [facility]; Service: Cardiol ogy; Laterality: N/A; CARDIAC CATHETERIZATION 07/05/2019 N/A Procedur e: Pci percutaneous car diac angioplasty; Ocampo rgeon: Abad Tuttle MD; Location: [facility] Parking Regulation Enforcement Officer [facility]; Service: Cardiol ogy; Laterality: N/A; CARDIAC CATHETERIZATION 07/05/2019 N/A Procedur e: Cv percutaneous cor onary intervention; S urgeon: Abad Tuttle MD; Location: [facility] Parking Regulation Enforcement Officer [facility]; Service: Cardiol ogy; Laterality: N/A; Laser Atherectomy [...] INFLUENZA VACCINE 05/11/2020 Implants Implanted Type Area Wire Frame Maker Device Shelf Model / Identifier Expiration Serial / Date Lot Skw Deep Scrotal Retract System - [id number] SUPPLIES N/A: AMER ICAN [id number] / Implanted: Qty: 1 on 04/17/2016 by Cesar Harding MD at [facility] PATIENT Penis MEDICAL / BILLABLE SYSTEMS- AMS Spectra Rear Tip Extenders 12mm & 14mm-3cm - [id number] IPM SUPPLI ES N/A: N/A FRENCH 03/05/2021 [id number] / Implanted: Qty: 1 on 04/17/2016 by Cesar Harding MD at [facility] PATIENT MEDICAL / NON-BILLABLE SYSTEMS- AMS [id number] Injectables Injectables Description:LLQ abdominal area Kit Accy Infltbl Penile Ams 700 - [id number] Urological N/A: Penis AMER ICAN 02/13/2021 [id number] / Implanted: Qty: 1 on 04/17/2016 by Cesar Harding MD at [facility] Implants or Sets MEDICAL SYSTEMS / INC [id number] Implant Penile Ams 700 Lgx Ms Prcnctd Pnscrtl Aprch 18cm - [id number] Urological N/A: Penis FRENCH 02/04/2018 [id number] / Implanted: Qty: 1 on 04/17/2016 by Cesar Harding MD at [facility] Implants or Sets MEDICAL SYSTEMS / INC [id number] Implant Penile Rsvr Ams 700 Ms Prcnctd W/ Iz 100ml - [id number] Urological N/A: Penis FRENCH 09/03/2017 [id number] / Implanted: Qty: 1 on 04/17/2016 by Cesar Harding MD at [facility] Implants or Sets MEDICAL SYSTEMS / INC [id number] Insulin Pump Description:Right upper abdomen area Results Not on fileafter 08/29/2019 Advance Directives For more information, please contact: [phone] Type Date Recorded Patient Installment Loan Collector Explanati on Advance Directives, Living Will 07/05/2019 9:59 AM and Medical Power of Lineman Apprentice
--- OUTSIDE RECORDS SUMMARY | 2020-08-29 08:03 | XMS REPORT | Clinical Summary ---
:1960 Author Organization [facility] Address [address] [place] [address] Care Team Providers Name Role Phone Bruce [...] VACCINE (#1) 2020 Results Not on fileafter 08/29/2019 Insurance Payer Benefit Plan Subscriber ID Effective Dates Phone Address Type / Group BLUE BCBS HMO [id number] 2017-Brianna [phone] [address]MO/POS CROSS/BLUE BLUE[address] t [id number] [place] [address] Advance Directives For more information, please contact: [phone] Code Status Date Activated Date Inactivated Comments Full Code 12/10/2016 4:04 PM 12/11/2016 3:02 PM This code status was determined by: Patient
--- OUTSIDE RECORDS SUMMARY | 2020-08-29 08:04 | XMS REPORT | Continuity of Care Document ---
:1960 Author Organization [facility] t Address [address] [place] [address] Care Team Providers Name Role Phone Radha [...] ular ular request disease) disease) for surgery [id number] History of History of Disease Active Overview : [place] coronary coronary 07-03 Added Method i artery artery 00:00: automatic st stent stent 00 ally from placement placement request for surgery [id number] Hx of CABG Hx of CABG Disease Active Overview : Letts 07-03 Added Methodi 00:00: automatic st 00 ally from request for surgery [id number] Coronary Coronary Disease Active Overview: [facility] artery artery 07-03 Added Methodi disease disease 00:00: automatic st involving involving 00 ally from [facility] sax[facility] request heart with heart with for angina angina surgery pectoris pectoris [id number] Urethral Urethral Disease [facility] Penile Penile Disease Active [place]ts implant implant 8-15 Methodi failure failure 00:00: st 00 Erectile Erectile Disease Active [place] dysfunctio dysfunctio 08 Me thodi n n 00:00: st 00 Allergies, Adverse Reactions, Alerts Allergy Allergy Status Severity Reaction(s) Onset Inactive Treating Comm ents Source Name Type Date Date Clinician Morphine Propensi Active Other (See Hallucina Letts ty to Comments) 9 tion Methodi adverse [...] drug Levoflox Propensi Active Other (See nauseaMak Letts acin ty to Comments) 816 es Methodi adverse 00:00: patient st reaction 00 regurgita s to te/vomit drug and can feel liquidly acid coming up his windpipe Penicill Propensi Active Anaphylaxis, Throat Letts ins ty to Swelling 04-16 swellsHap Metho di adverse 00:00: pened 30 st reaction 00 years ago s to but drug hasn't recently happened. Social History Social Habit Start Date Stop Date Quantity Comments Source Sex Assigned At [facility] Tobacco use and 2019-03-21 2019-03-21 Never used [facility] - exposure 00:00:00 00:00:00 [facility] Alcohol intake 2019-03-21 2019-03-21 Current [facility] es - 00:00:00 00:00:00 non-drinker of Medical nter alcohol (finding) Smoking Status Start Date Stop Date Source Never smoker [facility] Medications Ordered Filled Start Stop Current Ordering Indication Dosage Frequency Signature Comments Components Source Medication Medication Date Date Medication? Clinician (SIG) Name Name INSULIN Yes Inject Letts REGULAR, 9-26 under the Method i HUMAN [...] by mouth [facility] - tablet 10:00: daily. [address] rosuvastati Yes 40mg QD Take [address] [facility] ([facility]) 6-11 by mouth [facility] - 5 MG tablet 09:45: nightly . edical [address] [place] ERGOCALCIFE Yes 2000U QD Take 2,000 [facility] [...] [facility] - Test 00:00:00 (#1) [code = [facility] INFLUENZA VACCINE (#1)] Future Scheduled 2020-05-11 INFLUENZA VACCINE [place] [facility] Test 00:00:00 [code = INFLUENZA VACCINE] Future Scheduled 2009 COLONOSCOPY SCREENING [place] [facility] Test 00:00:00 [code = COLONOSCOPY SCREENING] Future Scheduled 2009 SHINGLES VACCINES [place] [facility] Test 00:00:00 (#1) [code = SHINGLES VACCINES (#1)] Future Scheduled [address] [facility] - Test 00:00:00 (procedure) [code = [facility] 43191765] Future Scheduled [address] [facility] - Test 00:00:00 malignant neoplasm of [facility] colon (procedure) [code = 895384340] Encounters Start End Encounter Admission Attending Care Care Encounter Source Date/Time Date/Time Type Type Clinicians Facility Department ID 2020-05-03 2020-05-03 Laboratory Lab, Adc [facility] [id number] 16:14:00 16:34:00 Only Fam [facility] [id number] [place] [id number] Professio [id number] nal 0[address] One Results Test Description Test Time Test Comments Results Result Comments Source HEMOGLOBIN AND HEMATOCRIT 2016-12-11 09:24:00 Test Item Value Reference Range Interpretation Comme nts HEMOGLOBIN (BEAKER) (test code = 410) 9.8 GM/DL 13.0-16.8 L HEMATOCRIT (BEAKER) (test code = 411) 29.7 % 40.0-50.0 L POCT-GLUCOSE [id number] 08:04:00 Test Item Value Reference Range Interpretation Comments POC-GLUCOSE METER 59 mg/dL 70-110 L TESTED AT [facility] 6720 (BEAKER) (test code = [facility] [address] 1538) BASIC METABOLIC [id number] 06:07:00 Test Item Value Reference Range Interpretation [...] NOT APPLICABLE FOR DIALYSIS PATIEN TS. POCT-GLUCOSE [id number] 22:08:00 Test Item Value Reference Range Interpretation Comments POC-GLUCOSE METER 200 mg/dL 70-110 H TESTED AT [facility] 6720 (BEAKER) (test code = [facility] 1538) [address] POCT-GLUCOSE [id number] 17:00:00 Test Item Value Reference Range Interpretation Comments POC-GLUCOSE METER 289 mg/dL 70-110 H TESTED AT [facility] 67[address] (BEAKER) (test code = [facility] 1538) [address] BASIC METABOLIC [id number] 14:43:00 Test Item Value Reference Range Interpretation [...] APPLICABLE FOR DIALYSIS PATIEN TS. HEMOGLOBIN AND [id number] 14:32:00 Test Item Value Reference Range Interpretation Comments HEMOGLOBIN (BEAKER) (test code = 10.0 GM/DL 13.0-16.8 L 410) HEMATOCRIT (BEAKER) (test code = 28.4 % 40.0-50.0 L 411) POCT-GLUCOSE [id number] 13:51:00 Test Item Value Reference Range Interpretation Comments POC-GLUCOSE METER 282 mg/dL 70-110 H TESTED AT [facility] 6720 (BEAKER) (test code = IRMA MENSAH ID 1538) [address] SODIUM NA-STAT [id number] 13:16:00 Test Item Value Reference Range Interpretation Comments SODIUM (BEAKER) (test code = 381) 137 meq/L 135-148 POTASSIUM-STAT [id number] 13:16:00 Test Item Value Reference Range Interpretation Comments POTASSIUM (BEAKER) (test code = 4.1 meq/L 3.6-5.5 379) BLOOD GAS, [id number] 13:16:00 Test Item Value Reference Range Interpretation [...] (test code = 1819) 100.0 % GLUCOSE-STAT [id number] 13:16:00 Test Item Value Reference Range Interpretation Comments GLUCOSE RANDOM (BEAKER) (test code 295 mg/dL 70-110 H = 652) HGB/HCT (H&H) - STAT [id number] 13:16:00 Test Item Value Reference Range Interpretation Comments HEMOGLOBIN (BEAKER) (test code = 9.9 g/dL 13.0-16.8 L 410) HEMATOCRIT (BEAKER) (test code = 29.0 % 40.0-50.0 L 411) CALCIUM, [id number] 13:16:00 Test Item Value Reference Range Interpretation Comments CALCIUM IONIZED (BEAKER) (test 1.04 mmol/L 1.12-1.27 L code = 698) PH, BLOOD (BEAKER) (test code = 7.32 1810) BLOOD GAS, [id number] 12:22:00 Test Item Value Reference Range Interpretation [...] (test code = 1819) 21.0 % GLUCOSE-STAT [id number] 12:22:00 Test Item Value Reference Range Interpretation Comments GLUCOSE RANDOM (BEAKER) (test code 322 mg/dL 70-110 H = 652) HGB/HCT (H&H) - STAT [id number] 12:22:00 Test Item Value Reference Range Interpretation Comments HEMOGLOBIN (BEAKER) (test code = 9.7 g/dL 13.0-16.8 L 410) HEMATOCRIT (BEAKER) (test code = 29.0 % 40.0-50.0 L 411) CALCIUM, [id number] 12:22:00 Test Item Value Reference Range Interpretation Comments CALCIUM IONIZED (BEAKER) (test 0.99 mmol/L 1.12-1.27 L code = 698) PH, BLOOD (BEAKER) (test code = 7.33 1810) SODIUM NA-STAT [id number] 12:18:00 Test Item Value Reference Range Interpretation Comments SODIUM (BEAKER) (test code = 381) 136 meq/L 135-148 POTASSIUM-STAT [id number] 12:18:00 Test Item Value Reference Range Interpretation Comments POTASSIUM (BEAKER) (test code = 4.4 meq/L 3.6-5.5 379) BLOOD GAS, [id number] 11:22:00 Test Item Value Reference Range Interpretation [...] (test code = 1819) 21.0 % GLUCOSE-STAT [id number] 11:22:00 Test Item Value Reference Range Interpretation Comments GLUCOSE RANDOM (BEAKER) (test code 352 mg/dL 70-110 H = 652) HGB/HCT (H&H) - STAT [id number] 11:22:00 Test Item Value Reference Range Interpretation Comments HEMOGLOBIN (BEAKER) (test code = 10.4 g/dL 13.0-16.8 L 410) HEMATOCRIT (BEAKER) (test code = 31.0 % 40.0-50.0 L 411) CALCIUM, [id number] 11:22:00 Test Item Value Reference Range Interpretation Comments CALCIUM IONIZED (BEAKER) (test 1.03 mmol/L 1.12-1.27 L code = 698) PH, BLOOD (BEAKER) (test code = 7.35 1810) SODIUM NA-STAT [id number] 11:21:00 Test Item Value Reference Range Interpretation Comments SODIUM (BEAKER) (test code = 381) 136 meq/L 135-148 POTASSIUM-STAT [id number] 11:21:00 Test Item Value Reference Range Interpretation Comments POTASSIUM (BEAKER) (test code = 5.4 meq/L 3.6-5.5 379) SODIUM NA-STAT [id number] 08:47:00 Test Item Value Reference Range Interpretation Comments SODIUM (BEAKER) (test code = 381) 135 meq/L 135-148 POTASSIUM-STAT [id number] 08:47:00 Test Item Value Reference Range Interpretation Comments POTASSIUM (BEAKER) (test code = 4.4 meq/L 3.6-5.5 379) BLOOD GAS, [id number] 08:47:00 Test Item Value Reference Range Interpretation [...] (test code = 1819) 100.0 % GLUCOSE-STAT [id number] 08:47:00 Test Item Value Reference Range Interpretation Comments GLUCOSE RANDOM (BEAKER) (test code 183 mg/dL 70-110 H = 652) HGB/HCT (H&H) - STAT [id number] 08:47:00 Test Item Value Reference Range Interpretation Comments HEMOGLOBIN (BEAKER) (test code = 10.5 g/dL 13.0-16.8 L 410) HEMATOCRIT (BEAKER) (test code = 31.0 % 40.0-50.0 L 411) CALCIUM, [id number] 08:47:00 Test Item Value Reference Range Interpretation Comments CALCIUM IONIZED (BEAKER) (test 1.06 mmol/L 1.12-1.27 L code = 698) PH, BLOOD (AKER) (test code = 7.39 1810) [id number] 06:53:00 Test Item Value Reference Range Interpretation Comments POTASSIUM (BEAKER) (test code = 4.9 meq/L 3.6-5.5 379) POCT-GLUCOSE [id number] 06:45:00 Test Item Value Reference Range Interpretation Comments POC-GLUCOSE METER 208 mg/dL 70-110 H TESTED AT [facility] 67[address] ([facility]) (test code = IRMA MENSAH ID 1538) [address] URINE [id number] 12:35:00 Test Item Value Reference Range Interpretation Comments CULTURE ([facility]) ENTEROCOCCUS A >100,000 co l/mL (test code [...] = 13) CBC W/PLT COUNT & AUTO [id number] 11:52:00 Test Item Value Reference Range Interpretation [...] 0.00-0.20 (test code = 417) 0.00COMPREHENSIVE METABOLIC [id number] 11:47:00 Test Item Value Reference Range Interpretation [...] APPLICABLE FOR DIALYSIS PATIEN TS. URINALYSIS W/ [id number] 11:46:00 Test Item Value Reference Range Interpretation [...]
[2020-08-29] MEDS ORDERED: CEFOXITIN/SWI 1gm 1 GM/10 ML SYR ONE (08:25)
[2020-08-29] MEDS ORDERED: NA CHLORIDE 0.9% 1,000 ML ONE (08:25)
[2020-08-29] MEDS ORDERED: propofoL 200 MG/20 ML VIAL IV ONE (08:48)
[2020-08-29] MEDS ORDERED: ROCURONIUM 50 MG/5 ML VIAL IV ONE (08:48)
[2020-08-29] MEDS ORDERED: dexAMETHasone 10 MG/ML VIAL ONE (08:48)
[2020-08-29] MEDS ORDERED: FENTANYL CITR 100 MCG/2 ML ONE ×2 (08:48→10:40)
[2020-08-29] MEDS ORDERED: ONDANSETRON 4 MG/2 ML VIAL ONE (08:49)
[2020-08-29] MEDS ORDERED: LIDOCAINE 2% MPF 5 ML VIAL ONE (08:49)
[2020-08-29] MEDS ORDERED: MIDAZOLAM HCL 2 MG/2 ML INJ ONE (08:49)
[2020-08-29] MEDS ORDERED: EPHEDRINE SULF 50 MG/ML VIAL ONE (09:50)
[2020-08-29] MEDS ORDERED: GLYCOPYRROLATE 0.2 MG/ML SYR ONE (10:14)
[2020-08-29] MEDS ORDERED: NEOSTIGMINE 1 MG/ML -5 ML ONE (10:31)
--- NOTE | 2020-08-29 10:31 | P.BOP ---
Preoperative diagnosis: biliary dyskinesia, RUQ abd pain, gallbladder polyps, hx of gastric bypass Postoperative diagnosis: extensive intrabdominal adhesions, cholecystitis Primary procedure: 1. Laparoscopic cholecystectomy Secondary procedure: 2. extensive laparoscopic lysis of adhesions Nut Chopper: DEXTER TORRES (CELLAR WORKER) Estimated blood loss: <20cc Specimen: gb Findings: extensive intrabdominal adhesions Anesthesia: General Complications: None Transferred to: Recovery Room Condition: Good
--- NOTE | 2020-08-29 11:13 | OP ---
Date of Procedure: 08/29/2020 Surgeon: Cm Mckeon MD Painter Spring: Yelena Turcios. Preoperative Diagnosis: Right upper quadrant abdominal pain, biliary dyskinesia, gallbladder polyps, history of gastric bypass x2. Postoperative Diagnosis: Right upper quadrant abdominal pain, biliary dyskinesia, gallbladder polyps , history of gastric bypass x2 plus extensive intraabdominal adhesions. Procedures: 1.Laparoscopic cholecystectomy. 2.Extensive laparoscopic lysis of adhesion. Estimated Blood Loss: Less than 20 cc. Specimen: Gallbladder. Anesthesia: General plus local. Findings: Extensive intraabdominal adhesions. Patient had multiple surgeries previously causing att achment of the omentum to the liver, to the anterior abdominal wall and also to the gallbladder. Abo ut half of the time, a little bit more of half of time was dedicated just for lysis of adhesions befo re we can even continue with the cholecystectomy. Patient tolerated that procedure well. Indications: This is the case of a 60-year-old patient with constant right upper quadrant abdominal pain diagnosed with dyskinesia in the gallbladder. Also gallbladder polyps. The patient has history of intraabdominal surgeries gastric bypass and we will have details on that one, but the gallbladder is affecting him given pain and discomfort. The benefits, alternatives, and risks of lap aroscopic possible open cholecystectomy fully explained which include, but not limited to infection, bleeding, damage to adjacent structures, anesthesia complication, choledocholithiasis, bile leak, francois creatitis, [place], and even . He also understands this may not relieve symptoms. He might need mor e than one surgical intervention. He understood, signed a consent. Procedure In Detail: The patient was brought to the operating room, placed in supine position. Anes thesia was done without complication. Abdominal area was prepped and draped in a sterile fashion. M arcaine 0.5% was injected for local anesthetic followed by sharp incision of the skin in the infraumb ilical region. Incision was carried down to fascia, which was opened under direct vision. Peritoneu m was encountered. Opened under direct vision. Vicryl #1 was placed inside the fascia. [place] troc ar was carefully introduced. No bleeding was obtained. After that we proceeded to inspect the area and we noticed extensive adhesions in the right upper quadrant area. So I put a 5 mm trocar in the e pigastric region under direct visualization, and using the help of the LigaSure, we proceeded to care fully and slowly removed the adhesions present there. Like I mentioned before, we took more than nicol f the time of the entire surgery just to the adhesions until the gallbladder was released and stomach was released and intestine were released with no enterotomy or gastrostomy. At that moment, I once again put a grasper in the fundus of the gallbladder, another grasper in the infundibulum retracting the gallbladder in the inferolateral fashion exposing the triangle of Calot obtaining critical view. Cystic duct and cystic artery were clearly isolated, freed circumferentially and the connection betw een those and the gallbladder were clearly identified. I proceeded to ligate those by using at least 3 clips proximally, 1 clip distal, ligation in middle. Same was done with the cystic artery. No bi le leak. No bleeding. The gallbladder was removed from liver using Bovie cauterizer and removed fro m abdominal cavity using EndoCatch through the umbilical incision. Area was inspected once again. T he area of the lysis of adhesions was inspected once again. No bleeding. Gallbladder fossa with no bleeding or bile leak. At that moment, I proceeded to remove the trocars under direct vision, deflat ed pneumoperitoneum, closed the fascia with 1 Vicryl, irrigated subcutaneous tissue, closed that with 3-0 chromic and skin with kayden. Sponge count and instrument counts correct. Patient tolerated the procedure well. Patient was sent to recovery in stable condition. USAMA/CARIN Voice ID: [id number] Report ID: [id number]
--- NOTE | 2020-08-29 11:13 | DS ---
Diagnoses: Biliary dyskinesia, right upper quadrant abdominal pain, gallbladder polyps, history of g astric bypass, and extensive intraabdominal adhesions. Procedure: Laparoscopic cholecystectomy, extensive laparoscopic lysis of adhesions. Surgeon: Cm Mckeon MD. Disposition: Home if he gets anesthesia clearance. Plan: Follow up in my office in 1 week. Call for appointment [phone]. Medications include Ultrace t q.4 hours p.r.n. pain, Augmentin 875 p.o. q.12. Keep area dry for 48 hours, then may shower. Keep Steri-Strips intact. USAMA/CARIN Voice ID: [id number] Report ID: [id number]
[2020-08-29 11:34] VITALS: TEMP 97.9; O2SAT 100
[2020-08-29] MEDS ORDERED: TRAMADOL 37.5mg/APAP 325mg PER TAB ONE (11:38)
[2020-08-29 12:16] VITALS: BP 124/54
== END 2020-08-29 12:42 | disposition home or self-care (01) ==
LOC: OR 07:59
PROVIDERS: ATTEND Surgery
PROC: 0DNW4ZZ Release Peritoneum, Percutaneous Endoscopic Approach (ICD-10-PCS; 2020-08-29)
PROC: 0FT44ZZ Resection of Gallbladder, Percutaneous Endoscopic Approach (ICD-10-PCS; principal; 2020-08-29 09:00)
DX: K80.10 Calculus of gallbladder with chronic cholecystitis without obstruction (principal); K82.8 Other specified diseases of gallbladder; K66.0 Peritoneal adhesions (postprocedural) (postinfection); E11.9 Type 2 diabetes mellitus without complications; I10 Essential (primary) hypertension; I25.10 Atherosclerotic heart disease of native coronary artery without angina pectoris; I25.2 Old myocardial infarction; Z20.828 Contact with and (suspected) exposure to other viral communicable diseases; Z98.84 Bariatric surgery status; Z88.2 Allergy status to sulfonamides; Z88.3 Allergy status to other anti-infective agents; Z88.6 Allergy status to analgesic agent; Z88.8 Allergy status to other drugs, medicaments and biological substances; Z95.1 Presence of aortocoronary bypass graft; Z95.5 Presence of coronary angioplasty implant and graft; Z80.52 Family history of malignant neoplasm of bladder; Z80.3 Family history of malignant neoplasm of breast; Z82.49 Family history of ischemic heart disease and other diseases of the circulatory system; Z82.62 Family history of osteoporosis
CPT/HCPCS: 36415; 82150; 82947; 80076; 88304; 83690; 47562; 49329; J2704; J2250; J3010 ×2; J1100; J2710; J7030; J2405

== ENCOUNTER 2021-03-24 07:35 | Day surgery (SDC) | payer BC ==
[2021-03-21 16:29] LABS: Absolute Lymphocytes (CBC) 1.1 K/uL (0.7-4.9); Basophils % 0.9 % (0-1.3); Hematocrit 32.4 % (39.6-49.0); Lymphocytes % 27.2 % (15.3-44.8); MPV 8.4 fL (7.6-11.3); RBC Red Blood Cell Count 3.62 M/uL (4.33-5.43)
--- NOTE | 2021-03-21 16:29 | RAD REPORT ---
EXAM DESCRIPTION: RAD - Chest Pa And Lat (2 Views) - 03/21/2021 4:22 pm CLINICAL HISTORY: preop Chest pain. COMPARISON: Chest Pa And Lat (2 Views) dated 08/23/2020; Chest Pa And Lat (2 Views) dated 03/28/2019; Chest Single View dated 09/01/2018; CHEST SINGLE VIEW dated 05/22/2013 FINDINGS: The lungs are clear. The heart is normal in size. Sternotomy wires noted. IMPRESSION: No acute or concerning finding suspected.
[2021-03-21 16:38] LABS: Protime INR 0.96
[2021-03-21 16:45] LABS: Potassium 5.1 mmol/L (3.5-5.1)
[2021-03-24] MEDS ORDERED: NA CHLORIDE 0.9% 500 ML ONE (08:03)
[2021-03-24 08:13] VITALS: TEMP 97
[2021-03-24] MEDS ORDERED: HEPA 1000U/500MLS 1,000 UNIT/500 ML BAG IV ONE (08:46)
[2021-03-24] MEDS ORDERED: FENTANYL CITR 100 MCG/2 ML ONE (08:46)
[2021-03-24] MEDS ORDERED: MIDAZOLAM HCL 2 MG/2 ML INJ ONE ×2 (08:46→08:57)
[2021-03-24] MEDS ORDERED: ATROPINE SULF 1 MG/10 ML SYR IV ONE (08:46)
[2021-03-24] MEDS ORDERED: NA CHLORIDE 0.9% 0 ML ONE (08:46)
--- NOTE | 2021-03-24 10:35 | OP ---
Date of Procedure: 03/24/2021 Surgeon: Jarad Peres MD Litharge Mill Operator: Mr. Doug Casas. Procedures Performed: Left heart catheterization, selective coronary arteriogram, vein graft injecti on and LEON injection. Indication: Unstable angina and history of CAD. Procedure In Detail: The patient was brought to the supervisor laboratory animal facility, prepped and draped in the routine ster ile fashion, given Versed for sedation and fentanyl. He was given Mucomyst for renal insufficiency. A 6-Chinese sheath introduced in the right common femoral artery successfully using the Seldinger issac hnique and 10 cc of Xylocaine. A JL4 catheter was used to cannulate the left main. He had 100% occl usion of his LAD, 100% occlusion of the circumflex. He had a patent LEON to the LAD. He had a paten t vein graft to the OM. He had severe OM disease, diffuse, distal past the anastomotic site. A JR4 catheter was used to cannulate the right coronary artery. He had patent stents, no stenosis. The OM graft was cannulated with the RCA catheter and that appeared to be normal. The LEON was cannulated then with a JR4 and that was normal. There were no complications. Blood Loss: 5 mL. Postoperative Diagnosis: Severe coronary artery disease. Plan: Continue medical therapy. Angio-Seal was used to close the case. The patient will remain in the hospital for 2 hours. He will get another dose of Mucomyst. He can go home today and I will see him in the office in 2 hours. Anesthesia: Total conscious sedation was 45 minutes. EDMOND/CARIN Voice ID: [id number] Report ID: [id number]
[2021-03-24 11:13] VITALS: BP 122/61; O2SAT 99
== END 2021-03-24 11:30 | disposition home or self-care (01) ==
LOC: CCL 07:35
DX: I25.110 Atherosclerotic heart disease of native coronary artery with unstable angina pectoris (principal); I25.82 Chronic total occlusion of coronary artery; I65.21 Occlusion and stenosis of right carotid artery; I10 Essential (primary) hypertension; E78.2 Mixed hyperlipidemia; E10.9 Type 1 diabetes mellitus without complications; Z95.1 Presence of aortocoronary bypass graft; Z95.5 Presence of coronary angioplasty implant and graft; Z88.3 Allergy status to other anti-infective agents; Z88.6 Allergy status to analgesic agent; Z82.49 Family history of ischemic heart disease and other diseases of the circulatory system
CPT/HCPCS: 93005; 85025; 80048; 36415; 85610; 85730; 71046; 93455; C1893; C1760; J2250 ×2; J3010; J7040; J1644; J0583

== ENCOUNTER 2024-06-07 06:09 | Emergency (ER) | payer BC ==
[2024-06-07] MEDS ORDERED: DOCUSATE NA 100 MG CAP PO ONE (06:34)
--- NOTE | 2024-06-07 06:57 | EDPHYS ---
Physician Documentation [facility] Name: Florencio Holm Jr Age: 64 yrs Sex: Male : 1960 Arrival Date: 06/07/2024 Time: 06:09 Bed 5 Private MD: ED Physician Jose Muller HPI: 06/07 06:32 This 64 yrs old Male presents to ER via Ambulatory with complaints of Ear avery Pain. 06:32 The patient presents with a foreign body sensation, pain, swelling, tenderness. The avery complaints affect the right ear. Onset: The symptoms/episode began/occurred 2 day(s) ago. Modifying factors: The symptoms are alleviated by nothing, the symptoms are aggravated by nothing. Associated signs and symptoms: Pertinent positives: decreased hearing. Severity of symptoms: At their worst the symptoms were moderate in the emergency department the symptoms are unchanged. The patient has not experienced similar symptoms in the past. Historical: - Allergies: 06:27 Bactrim; vc1 06:27 Levaquin; vc1 - PMHx: 06:27 CAD; Diabetes - IDDM; Hyperlipidemia; Hypertension; vc1 - PSHx: 06:27 CABG; insulin pump; vc1 - Immunization history:: Client reports receiving the 2nd dose of the Covid vaccine. - Infectious Disease History:: Denies. - Social history:: Smoking status: Patient denies any tobacco usage or history of. ROS: 06:33 Constitutional: Negative for fever, chills, and weight loss, Eyes: Negative for injury, avery pain, redness, and discharge, Neck: Negative for injury, pain, and swelling, Cardiovascular: Negative for chest pain, palpitations, and edema, Respiratory: Negative for shortness of breath, cough, wheezing, and pleuritic chest pain, Abdomen/GI: Negative for abdominal pain, nausea, vomiting, diarrhea, and constipation, Back: Negative for injury and pain, : Negative for injury, bleeding, discharge, and swelling, MS/Extremity: Negative for injury and deformity, Skin: Negative for injury, rash, and discoloration, Neuro: Negative for headache, weakness, numbness, tingling, and seizure, Psych: Negative for depression, anxiety, suicide ideation, homicidal ideation, and hallucinations, Allergy/Immunology: Negative for hives, rash, and allergies, Endocrine: Negative for neck swelling, polydipsia, polyuria, polyphagia, and marked weight changes, Hematologic/Lymphatic: Negative for swollen nodes, abnormal bleeding, and unusual bruising, 06:33 ENT: Positive for ear pain, hearing loss, Exam: 06:33 Constitutional: This is a well developed, well nourished patient who is awake, alert, avery and in no acute distress. Head/Face: Normocephalic, atraumatic. Eyes: Pupils equal round and reactive to light, extra-ocular motions intact. Lids and lashes normal. Conjunctiva and sclera are non-icteric and not injected. Cornea within normal limits. Periorbital areas with no swelling, redness, or edema. Neck: Trachea midline, no thyromegaly or masses palpated, and no cervical lymphadenopathy. Supple, full range of motion without nuchal rigidity, or vertebral point tenderness. No Meningismus. Chest/axilla: Normal chest wall appearance and motion. Nontender with no deformity. No lesions are appreciated. Cardiovascular: Regular rate and rhythm with a normal S1 and S2. No gallops, murmurs, or rubs. Normal PMI, no JVD. No pulse deficits. Respiratory: Lungs have equal breath sounds bilaterally, clear to auscultation and percussion. No rales, rhonchi or wheezes noted. No increased work of breathing, no retractions or nasal flaring. Abdomen/GI: Soft, non-tender, with normal bowel sounds. No distension or tympany. No guarding or rebound. No evidence of tenderness throughout. Back: No spinal tenderness. No costovertebral tenderness. Full range of motion. Male : Normal genitalia with no discharge or lesions. Skin: Warm, dry with normal turgor. Normal color with no rashes, no lesions, and no evidence of cellulitis. MS/ Extremity: Pulses equal, no cyanosis. Neurovascular intact. Full, normal range of motion. Neuro: Awake and alert, GCS 15, oriented to person, place, time, and situation. Cranial nerves II-XII grossly intact. Motor strength 5/5 in all extremities. Sensory grossly intact. Cerebellar exam normal. Normal gait. Psych: Awake, alert, with orientation to person, place and time. Behavior, mood, and affect are within normal limits. 06:33 ENT: Ear canal(s): cerumen impaction, that is moderate, occluding the right ear canal, Examination of the other ear shows no obvious abnormality, Vital Signs: 06:24 BP 139 / 65; Pulse 63; Resp 16; Temp 97; Pulse Ox 100% ; Weight 97.52 kg; Height 5 ft. vc1 11 in. ; Pain 0/10; 08:00 BP 127 / 86; Pulse 61; Resp 18; Temp 97.6; Pulse Ox 99% on R/A; ph 06:24 Body Mass Index 29.99 (97.52 kg, 180.34 cm) vc1 06:24 Pain Scale: Adult vc1 MDM: 06:14 Patient medically screened. avery 06:36 Differential diagnosis: otitis externa, cerumen impaction. Data reviewed: vital signs, avery nurses notes. Consideration of Admission/Observation Escalation of care including admission/observation considered. I considered the following discharge prescriptions or medication management in the emergency department Medications were administered in the Emergency Department. See MAR. Test considered but Not performed: Labs: no labs. Historians other than the Patient: pt well informed. Care significantly affected by the following chronic conditions: Diabetes, Hypertension. Counseling: I had a detailed discussion with the patient and/or guardian regarding the historical points, exam findings, and any diagnostic results supporting the discharge/admit diagnosis, the need for outpatient follow up, for definitive care, an ENT specialist, a family practitioner. 06/07 06:32 Order name: [facility]. Order: irrigate [id number]; Complete Time: 07:59 avery Administered Medications: 06:37 Drug: Docusate PO Liquid 100 mg PO once; to ear {Note: administered gel into right vc1 ear..} Route: PO; 07:58 Follow up: Response: No adverse reaction ph Disposition Summary: 06/07/24 06:57 Discharge Ordered Notes: Location: Home avery Problem: new avery Symptoms: have improved avery Condition: Stable avery Diagnosis - Impacted cerumen, right ear avery Followup: avery - With: Private Physician - When: 2 - 3 days - Reason: Recheck today's complaints, Continuance of care, Re-evaluation by your physician Followup: avery - With: Bria Oliva MD - When: 2 - 3 days - Reason: Recheck today's complaints, Re-evaluation by your physician Discharge Instructions: - Discharge Summary Sheet avery - Earwax Buildup, Adult avery - Ear Drops, Adult avery - Ear Drops, Adult, [id number] avery - Ear Irrigation avery Forms: - Medication Reconciliation Form avery - Antibiotic Education avery - Prescription Opioid Use avery - Patient Portal Instructions [facility] - Leadership Thank You Letter [facility] Signatures: Jose Muller MD MD cha Calcote, Vanessa RN RN vc1 Fabi Elizondo RN
--- NOTE | 2024-06-07 06:57 | ER ---
Nurse's Notes [facility] Name: Florencio Holm Jr Age: 64 yrs Sex: Male : 1960 Arrival Date: 06/07/2024 Time: 06:09 Bed 5 Private MD: Diagnosis: Impacted cerumen, right ear Presentation: 06/07 06:24 Chief complaint: Patient states: right ear pain that started Wednesday. Worse at night, vc1 could not sleep from the pain. Coronavirus screen: Client denies travel out of the [place] in the last 14 days. At this time, the client does not indicate any symptoms associated with coronavirus-19. Ebola Screen: Patient negative for fever greater than or equal to 101.5 degrees Fahrenheit, and additional compatible Ebola Virus Disease symptoms Patient denies exposure to infectious person. Patient denies travel to an Ebola-affected area in the 21 days before illness onset. No symptoms or risks identified at this time. Initial Sepsis Screen: Does the patient meet any 2 criteria? No. Patient's initial sepsis screen is negative. Does the patient have a suspected source of infection? No. Patient's initial sepsis screen is negative. Risk Assessment: Do you want to hurt yourself or someone else? Patient reports no desire to harm self or others. Onset of symptoms was June 07, 2024. 06:24 Method Of Arrival: Ambulatory vc1 06:24 Acuity: FANI 4 vc1 Historical: - Allergies: 06:27 Bactrim; vc1 06:27 Levaquin; vc1 - PMHx: 06:27 CAD; Diabetes - IDDM; Hyperlipidemia; Hypertension; vc1 - PSHx: 06:27 CABG; insulin pump; vc1 - Immunization history:: Client reports receiving the 2nd dose of the Covid vaccine. - Infectious Disease History:: Denies. - Social history:: Smoking status: Patient denies any tobacco usage or history of. Screenin:[facility] ED Fall Risk Assessment (Adult) History of falling in the last 3 months, ph including since admission No falls in past 3 months (0 pts) Confusion or Disorientation No (0 pts) Intoxicated or Sedated No (0 pts) Impaired Gait No (0 pts) Mobility Assist Device Used No (0 pt) Altered Elimination No (0 pt) Score/Fall Risk Level 0 - 2 = Low Risk Oriented to surroundings, Maintained a safe environment, Hourly rounding (assess needs \T\ fall precautionary measures) done. Abuse screen: Denies threats or abuse. Denies injuries from another. Nutritional screening: No deficits noted. Tuberculosis screening: No symptoms or risk factors identified. Assessment: 06:30 General: Appears uncomfortable, Behavior is calm, cooperative. Pain: Complains of pain ha1 in right ear Pain does not radiate. Pain currently is 9 out of 10 on a pain scale. Quality of pain is described as throbbing, Pain began 2-3 days ago. Neuro: Level of Consciousness is awake, alert, obeys commands, Oriented to person, place, time, situation. Respiratory: Airway is patent Respiratory effort is even, unlabored, Respiratory pattern is regular, symmetrical. EENT: Ear canal Reports pain in right ear. Vital Signs: 06:24 BP 139 / 65; Pulse 63; Resp 16; Temp 97; Pulse Ox 100% ; Weight 97.52 kg; Height 5 ft. vc1 11 in. ; Pain 0/10; 08:00 BP 127 / 86; Pulse 61; Resp 18; Temp 97.6; Pulse Ox 99% on R/A; ph 06:24 Body Mass Index 29.99 (97.52 kg, 180.34 cm) vc1 06:24 Pain Scale: Adult vc1 ED Course: 06:12 Patient arrived in ED. jj6 06:13 Jose Muller MD is Attending Physician. avery 06:24 Genesis Duron, RN is Primary Nurse. vc1 06:27 Triage completed. vc1 06:30 Arm band placed on right wrist. vc1 06:56 Bria Oliva MD is Referral Physician. avery 07:30 Patient has correct armband on for positive identification. Bed in low position. Call ph light in reach. Side rails up X2. Pulse ox on. NIBP on. 07:45 Ear irrigation: Route right ear with Normal Saline amount 250ml Patient tolerated well. ph 08:00 No provider procedures requiring assistance completed. Patient did not have IV access ph during this emergency room visit. Administered Medications: 06:37 Drug: Docusate PO Liquid 100 mg PO once; to ear {Note: administered gel into right vc1 ear..} Route: PO; 07:58 Follow up: Response: No adverse reaction ph Medication: 08:00 VIS not applicable for this client. ph Outcome: 06:57 Discharge ordered by . avery 08:01 Discharged to home ambulatory, 08:01 Condition: good 08:01 Discharge instructions given to patient, Instructed on discharge instructions, follow up and referral plans. Demonstrated understanding of instructions, follow-up care, 08:01 Patient left the ED. ph Signatures: Jose Muller MD MD cha Hall, Patricia, RN RN Daily Gage jj6 Genesis Duron RN RN vc1 Nehal Ramírez RN RN ha1
[2024-06-07 08:07] VITALS: BP 127/86; TEMP 97.6; O2SAT 99
== END 2024-06-07 08:01 | disposition home or self-care (01) ==
LOC: ER 06:09
PROC: 3E1B78Z Irrigation of Ear using Irrigating Substance, Via Natural or Artificial Opening (ICD-10-PCS; principal; 2024-06-07)
DX: H61.21 Impacted cerumen, right ear (principal)

== ENCOUNTER 2024-06-13 10:30 | Observation (INO) | payer BC ==
[2024-06-08 09:49] LABS: Absolute Eosinophils 0.2 K/uL (0-0.5); Absolute Lymphocytes (CBC) 1.4 K/uL (0.7-4.9); Absolute Monocytes 0.5 K/uL (0.1-1.3); Absolute Neutrophil 2.4 K/uL (1.8-8.0); Eosinophils % 5.3 % (0-4.4); Hematocrit 40.1 % (39.6-49.0); Hemoglobin 12.9 g/dL (13.6-17.9); Lymphocytes % 29.8 % (15.3-44.8); MCH 30.2 pg (27.0-35.0); MCHC 32.3 g/dL (32.0-36.0); MCV 93.6 fL (80-100); MPV 8.3 fL (7.6-11.3); Neutrophils % 51.9 % (41.7-73.7); Platelets 178 thou/uL (152-406); RBC Red Blood Cell Count 4.28 M/uL (4.33-5.43); Red Cell Distribution Width 13.5 % (12.1-15.2)
--- NOTE | 2024-06-08 09:50 | RAD REPORT ---
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 COMPARISON: Chest Pa And Lat (2 Views) dated 03/21/2021; Chest Pa And Lat (2 Views) dated 08/23/2020; Chest Pa And Lat (2 Views) dated 03/28/2019; Chest Single View dated 09/01/2018 TECHNIQUE: PA and lateral views of the chest were obtained. FINDINGS: The lungs are hyperexpanded compatible with COPD. Mild scarring is present in the left raven g base. The heart is upper limit of normal in size. Sternotomy wires present. No fracture or aggressi ve bony process. IMPRESSION: COPD without acute process identified. The USPSTF recommends annual screening for lung cancer with low-dose CT (LDCT) in adults aged 50 to 8 0 years who have a 20 pack-year smoking history and currently smoke or have quit within the past 15 y ears.
[2024-06-08 09:52] LABS: PT Prothrombin Time 10.6 SECONDS (9.4-12.5); PTT, Activated Partial Thromb 35.7 SECONDS (24.3-36.9); Protime INR 0.94
[2024-06-08 09:59] LABS: Anion Gap 8.2 mEq/L (5.0-15.0); Potassium 5.2 mEq/L (3.5-5.1)
--- NOTE | 2024-06-08 12:53 | EKG ---
Test Date: 2024-06-08 Test Time: 09:20:54 Recycling Tech: GRETCHEN MEASUREMENT RESULTS: Intervals: Rate: 58 [place]: 198 QRSD: 88 QT: 410 QTc: 402 [place]: P: 62 AZ: 198 QRS: 26 T: 106 INTERPRETIVE STATEMENTS: Sinus bradycardia ST & T wave abnormality, consider lateral ischemia Abnormal ECG Compared to ECG 03/21/2021 15:03:11 Sinus rhythm no longer present ST (T wave) deviation still present Possible ischemia still present Electronically Signed On 06-08-24 12:53:13 CDT by Zeb Sanchez
[2024-06-13] MEDS: NA CHLORIDE 0.9% 500 ML ONE (11:26)
[2024-06-13] MEDS ORDERED: HEPA 1000U/500MLS 2,000 UNIT/1,000 ML BAG IV ONE (12:00)
[2024-06-13] MEDS ORDERED: HEPARIN 10,000 UNIT/10 ML VIAL IV ONE ×2 (12:00→13:12)
[2024-06-13] MEDS ORDERED: FENTANYL CITR 100 MCG/2 ML ONE (12:01)
[2024-06-13] MEDS ORDERED: CLOPIDOGREL 75 MG TABLET ONE (12:01)
[2024-06-13] MEDS ORDERED: MIDAZOLAM HCL 2 MG/2 ML INJ ONE (12:01)
[2024-06-13] MEDS ORDERED: ATROPINE SULF 1 MG/10 ML SYR IV ONE (12:01)
[2024-06-13] MEDS ORDERED: TICAGRELOR 90 MG TABLET PO ONE (12:01)
[2024-06-13] MEDS ORDERED: LIDOCAINE 1% 20 ML MDV ONE (12:02)
[2024-06-13] MEDS ORDERED: REGADENOSON 0.4 MG/5 ML SYR IV ONE (12:54)
[2024-06-13] MEDS ORDERED: ASPIRIN 81 MG CHEWABLE TABLET ONE (13:40)
[2024-06-13 16:48] VITALS: BMI 29.9
--- NOTE | 2024-06-13 17:30 | OP ---
Date of Procedure: 06/13/2024 Surgeon: JODI GARIBAY Procedures Performed: 1.Selective coronary angiogram. 2.FFR of proximal mid to distal RCA was significant at 0.77. 3.Shockwave lithotripsy of proximal RCA, severe stenosis and mid to distal RCA severe stenosis. 4.PCI of proximal RCA, I used 3.5 x 60 mm Synergy drug-eluting stent. 5.PCI of mid to distal RCA and severe RCA stenosis. I used 3.0 x 38 mm Synergy drug-eluting stent t o high pressure to give a size 3.4 mm. Indication: Unstable angina with abnormal stress test. Access: Right common femoral artery 6-[place] closed with the 6-[place] Angio-Seal. Complications: None. Bleeding: Less than 50 mL. Anesthesia: Total sedation time was about 90 minutes. I used fentanyl and Versed. Description Of Procedure: After risks, and benefits, and alternatives were explained, patient agreed to procedure and signed informed consent. The patient was brought into the cardiac catheterization laboratory, prepped and draped in the usual sterile fashion and then I accessed right common femoral artery using micropuncture kit, ultrasound guidance, and fluoroscopy and placed 6-[place] she ath and took a 6-[place] JL4 catheter into the aortic root, engaged the left main, took standard views and then exchanged for a 6-[place] JR4 catheter, engaged the RCA, SVG, diagonal 1, and the LEON to LA D, took standard views and then gave systemic heparin to assure that the ACT level above 250 througho ut the procedure and then took a JR4 guide into the aortic root, engaged the RCA, and took FFR wire i nto the aortic root, pressures were equalized and then the FFR wire was advanced to cover the distal lesion and performed FFR using Lexiscan, which was significant at 0.77, and pullback showed no drift. I decided to proceed with PCI of the RCA and I tried initially with an NC balloon as the vessel was heavily calcified. I used a 3.0 balloon but could not pass through, so I used a 3.0 x 15 mm Complia nt balloon and did pre-dilation and then took a GuideLiner into the RCA and advanced it into the mid segment and then I was able to deliver the shockwave lithotripsy balloon. I used the 3.5 balloon and then performed shockwave lithotripsy of mid distal and proximal RCA and then delivered a 3.0 x 38 mm Synergy drug-eluting stent mid to distal to overlap with the mid RCA stent and it expanded very well and then I took another 3.5 x 60 mm Synergy drug-eluting stent proximally and also overlapped with t tim mid RCA stent. The distal RCA stent was inflated to high pressure to give a size of 3.4 mm and th e final angiogram was satisfactory, removed the wire, and final angiogram was excellent. No complica tions and 0% residual stenosis. I then removed the guide and the sheath, and 6-[place] Angio-Seal was used for closure with good hemostasis. Findings: 1.Left main is patent. 2.LAD is occluded proximally 100%. 3.Left circumflex is totally occluded ostially. 4.RCA; proximal 70%, status post shockwave lithotripsy and PCI as above and widely patent stent in t tim mid RCA and then distally there are 2 focal lesions that are 80% with positive FFR, status post sh ockwave lithotripsy and PCI as above. Bypass Graft Study: 1.Widely patent LEON to distal LAD. 2.Patent SVG graft to diagonal 1. Conclusion: Severe RCA stenosis and severe [place] coronary artery disease, but with patent LEON to L AD and SVG graft to diagonal and there were collaterals from the RCA to the circ. Patient is status post PCI of the RCA with the shockwave lithotripsy, excellent results at the end. Plan: 1.Continue Effient which he took this morning and loaded him with aspirin. 2.Admit overnight for observation. Start him on IV fluids as he received about 80 cc of contrast an d his creatinine is 1.9. Discussed the case with Dr. Agustin. We will admit for just gentle hydration and plan for discharge tomorrow morning on aspirin, Effient, and high-dose statin. Follow up with me in the office in 1 week. SR/MODL Voice ID: [id number] Report ID: [id number]
[2024-06-13] MEDS: NA CHLORIDE 0.9% 1,000 ML IV SCH (18:25)
--- NOTE | 2024-06-13 20:18 | HP ---
Date of Admission: 06/13/2024 Chief Complaint: Kidney problem. History Of Present Illness: This is a 64-year-old pleasant male patient, who had elective outpatient cardiac catheterization done today by Dr. Salmon and the patient had angioplasty with stent placement of right coronary artery. His creatinine prior to this procedure was 1.9, and Dr. Salmon did use some IV contrast dye during this hospitalization, so after the procedure, he contacted me requesting admission to hospital for IV fluid hydration to reduce chances of any further kidney damage and compromise in the kidney function, so the patient was admitted to the hospital under my service for observation and I saw him this evening. He denies any nausea, vomiting, diarrhea. No chest pain, shortness of breath. Normally, he does not drink much water, so we did talk about importance of drinking at least 60 ounces of water on a daily basis. Allergies: TO MORPHINE, LEVAQUIN, AND BACTRIM. Review of Systems: Cardiovascular: As mentioned above. All other systems reviewed and negative. 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 Other medications include atorvastatin 40 mg daily, prasugrel 10 mg daily, famotidine 20 mg daily, furosemide 40 mg daily, levothyroxine 25 mcg daily, lisinopril 2.5 mg daily, metoprolol 25 mg 2 times a day, and vitamin B12 1 mg daily. Past Medical History: Significant for diabetic retinopathy, type 1 diabetes mellitus diagnosed in 1973, coronary artery disease with history of myocardial infarction on May 21, 2013, peripheral vascular disease, mixed hyperlipidemia, hypertension, gastroesophageal reflux disease, chronic kidney disease, lumbar spondylosis, and anemia due to chronic kidney disease. Past Surgical History: Coronary artery bypass surgery, cholecystectomy on August 29, 2020, penile implant in 2015, and removal of this penile implant due to infection. Family History: Father had COPD. Mother, hypertension and dementia. Social History: Negative for smoking and alcohol use. Physical Examination: Vital Signs: Height 5 feet 11 inches, weight 215 pounds, temperature 97.5, pulse 67, respiratory rate 16, blood pressure 149/66, oxygen saturation 99%. General: Awake, alert, oriented, not in distress. HEENT: Head atraumatic, normocephalic. Conjunctivae nonerythematous. Sclerae white. Mouth, no thrush or edema noted. Ears/Nose, no mass, lesion, discharge noted. Neck: Supple. No JVD, lymph nodes, bruit, thyromegaly noted. Lungs: Bilateral good equal air entry. Clear to auscultation. No rhonchi. No rales. Heart: Normal heart sounds, no murmur or gallop. Abdomen: Soft, bowel sounds normal. No guarding, rigidity, tenderness, mass, hepatosplenomegaly, distention, or bruit noted. Extremities: No leg edema. No calf tenderness. Skin: No rash, ulcer, cellulitis. Lymphatics: No lymph node enlargement in neck, supraclavicular, infraclavicular region. Neuro: No focal neurological deficit. Chest: Unremarkable. External Genitalia: Deferred. Rectal: Deferred. Laboratory Data: White count 4.5, hemoglobin 12.9, platelets 178, and this was done on 06/08/2024, and chemistry done on same day shows sodium 140, potassium 5.2, chloride 115, bicarb 22, BUN 50, creatinine 1.94, glucose 164. Impression: 1. Acute kidney injury. 2. Chronic kidney disease stage IIIB. 3. Hyperkalemia. 4. Anemia due to chronic kidney disease. 5. Coronary artery disease. 6. Hypertension. 7. Mixed hyperlipidemia. 8. Hypothyroidism. 9. Type 1 diabetes mellitus with diabetic retinopathy. Plan: We will go ahead and admit the patient to hospital for further evaluation and management of this problem. The patient is appropriate for observation and for his acute kidney injury, we will start him on IV fluid hydration using normal saline at 100 cc/hour. His outpatient creatinine about 1 month ago was 1.5. I will repeat blood work tomorrow morning and I will see him tomorrow morning for followup. For his coronary artery disease, he takes metoprolol and we will continue that. We will also continue his antiplatelet therapy and he has taken today's dose of aspirin and prasugrel today as I was informed by preservationist. We will continue his statin therapy for hyperlipidemia and no need for further intervention. For his diabetes, he is using his insulin pump and he was advised to continue to manage his own diabetes using his insulin pump while in the hospital. Total time spent today was 80 minutes including communication with preservationist, review of cardiac cath findings, review of last office visit note from 11/29/2023, and performing evaluation and management for this hospital admission. I will see him in the morning for followup. ROXI/MODLynette Voice ID: [id number] FRANKIE
[2024-06-13] MEDS: ACETAMINOPHEN 500 MG TAB PO PRN (22:39)
[2024-06-13 23:57] VITALS: O2SAT 97
[2024-06-14 05:23] VITALS: TEMP 97.8
[2024-06-14 06:09] LABS: Anion Gap 8.5 mEq/L (5.0-15.0); Potassium 5.5 mEq/L (3.5-5.1)
[2024-06-14] MEDS: SOD POLYSTYREN SUL 15 GM/60 ML UCUP PO SCH (07:55)
[2024-06-14] MEDS: ASPIRIN 81 MG CHEWABLE TABLET PO SCH (07:56)
[2024-06-14] MEDS: PRASUGREL (EFFIENT) 10 MG TAB PO SCH (07:56)
[2024-06-14] MEDS: METOPROLOL TAR 25 MG TAB PO SCH (07:56)
[2024-06-14 08:46] VITALS: BP 142/64
--- NOTE | 2024-06-14 20:12 | DS ---
Date of Discharge: 06/14/2024 Disposition: Discharged to go home. Physical Examination: HEENT: Unremarkable. Lungs: Clear to auscultation. Heart: Sounds normal. Abdomen: Soft. Bowel sounds normal. No guarding, rigidity, tenderness, distention. Extremities: No leg edema. Right groin exam has a small dressing present at the cardiac cath site. No evidence of any swelling or tenderness or hematoma. Laboratory Data: On 06/08/2024, sodium 140, potassium 5.2, chloride 115, bicarb 22, BUN 50, creatini ne 1.94. Today, sodium 142, potassium 5.5, chloride 114, bicarb 25, BUN 37, creatinine 1.61, glucose 95. Hospital Course: This is a 64-year-old pleasant male patient, who was admitted to the hospital after cardiac catheterization procedure was done by Dr. Salmon and he did angioplasty with stent placement . The patient's baseline renal function is abnormal and this creatinine of 1.9 was higher than his o utpatient baseline kidney number which was about a month ago and it was 1.5. After cardiac catheteri zation procedure, Dr. Salmon called me and informed me about this and requested admission to the hosp ital for IV fluid hydration to avoid any renal damage from use of IV contrast dye. The patient was a dmitted to the hospital. IV fluid normal saline at 100 cc/hour was started and this morning his tegan l function has shown improvement. Potassium was elevated at 5.5 and Kayexalate 30 g p.o. x1 dose was ordered. After this, decision was made to discharge the patient to go home. The patient has appoin tment to see me later part of this month and he was advised to keep that appointment and he will get fasting blood work at office few days before this appointment per order. Final Diagnoses: 1.Acute kidney injury. 2.Chronic kidney disease stage IIIB. 3.Hyperkalemia. 4.Anemia due to chronic kidney disease. 5.Coronary artery disease. 6.Hypertension. 7.Mixed hyperlipidemia. 8.Hypothyroidism. 9.Type 1 diabetes mellitus with diabetic retinopathy. Discharge Medications And Instructions: 1.Continue all prior home medication including the patient to make sure to take aspirin 81 mg daily and prasugrel 10 mg daily. 2.The patient to make sure to drink 60 ounces of water daily. 3.Follow up at my office during later part of this month. 4.Do not drink orange juice and do not eat bananas. Total time spent today 40 minutes. ROXI/MODL Voice ID: [id number] Report ID: [id number]
== END 2024-06-14 09:34 | disposition home or self-care (01) ==
LOC: CCL 10:30 → 2ND 15:47
PROVIDERS: ADMIT Internal Medicine; ATTEND Internal Medicine
PROC: B2131ZZ Fluoroscopy of Multiple Coronary Artery Bypass Grafts using Low Osmolar Contrast (ICD-10-PCS; principal; 2024-06-13)
PROC: B2111ZZ Fluoroscopy of Multiple Coronary Arteries using Low Osmolar Contrast (ICD-10-PCS; 2024-06-13)
PROC: 027035Z Dilation of Coronary Artery, One Artery with Two Drug-eluting Intraluminal Devices, Percutaneous Approach (ICD-10-PCS; 2024-06-13)
PROC: 02F03ZZ Fragmentation in Coronary Artery, One Artery, Percutaneous Approach (ICD-10-PCS; 2024-06-13)
DX: I25.110 Atherosclerotic heart disease of native coronary artery with unstable angina pectoris (principal); I25.82 Chronic total occlusion of coronary artery; I12.9 Hypertensive chronic kidney disease with stage 1 through stage 4 chronic kidney disease, or unspecified chronic kidney disease; E10.22 Type 1 diabetes mellitus with diabetic chronic kidney disease; N18.32 Chronic kidney disease, stage 3b; N17.9 Acute kidney failure, unspecified; D63.1 Anemia in chronic kidney disease; E10.319 Type 1 diabetes mellitus with unspecified diabetic retinopathy without macular edema; E87.5 Hyperkalemia; E78.2 Mixed hyperlipidemia; E03.9 Hypothyroidism, unspecified; I25.2 Old myocardial infarction; I65.21 Occlusion and stenosis of right carotid artery; I70.203 Unspecified atherosclerosis of native arteries of extremities, bilateral legs; K21.9 Gastro-esophageal reflux disease without esophagitis; M47.896 Other spondylosis, lumbar region; Z95.1 Presence of aortocoronary bypass graft; Z95.5 Presence of coronary angioplasty implant and graft; Z96.41 Presence of insulin pump (external) (internal); Z79.4 Long term (current) use of insulin; Z79.899 Other long term (current) drug therapy; Z88.2 Allergy status to sulfonamides; Z88.1 Allergy status to other antibiotic agents; Z88.5 Allergy status to narcotic agent; Z88.8 Allergy status to other drugs, medicaments and biological substances; Z90.49 Acquired absence of other specified parts of digestive tract; Z82.49 Family history of ischemic heart disease and other diseases of the circulatory system
CPT/HCPCS: 93005; 85025; 80048 ×2; 36415 ×2; 85610; 85347 ×5; 85730; 71046; 92928; 93455; 76937; 93571; 92972; C1893; Q9967; C1725; C1714; J2785; J2001; J2250; J3010; G0378 ×4; J7040; J7030 ×2; G0379; 99152; 99153; J0461

== ENCOUNTER 2024-11-22 11:45 | Day surgery (SDC) | payer BC ==
--- NOTE | 2024-11-21 12:48 | RAD REPORT ---
Procedure: Chest Single View HISTORY: Preop COMPARISON: 2023 FINDINGS: The lungs appear clear of acute infiltrate. No significant pleural effusion noted. The heart is borderline enlarged. Post surgical changes involve the chest. Mild chronic elevation left hemidiaphragm. IMPRESSION: No acute abnormality is displayed.
[2024-11-21 13:00] LABS: Absolute Basophils 0.1 K/uL (0-0.5); Absolute Eosinophils 0.3 K/uL (0-0.5); Absolute Lymphocytes (CBC) 1.5 K/uL (0.7-4.9); Absolute Monocytes 0.7 K/uL (0.1-1.3); Absolute Neutrophil 2.8 K/uL (1.8-8.0); Eosinophils % 5.5 % (0-4.4); Hematocrit 40.3 % (39.6-49.0); Hemoglobin 13.6 g/dL (13.6-17.9); Lymphocytes % 28.4 % (15.3-44.8); MCH 30.5 pg (27.0-35.0); MCHC 33.9 g/dL (32.0-36.0); MCV 90.2 fL (80-100); MPV 8.6 fL (7.6-11.3); Monocytes % 12.7 % (3.3-12.3); Neutrophils % 52.4 % (41.7-73.7); Platelets 184 thou/uL (152-406); RBC Red Blood Cell Count 4.46 M/uL (4.33-5.43); Red Cell Distribution Width 14.5 % (12.1-15.2)
[2024-11-21 13:17] LABS: PT Prothrombin Time 11.1 SECONDS (9.4-12.5); PTT, Activated Partial Thromb 35.9 SECONDS (24.3-36.9); Protime INR 1.06
[2024-11-21 13:19] LABS: Anion Gap 8.2 mEq/L (5.0-15.0); Potassium 5.2 mEq/L (3.5-5.1)
[2024-11-22] MEDS ORDERED: NA CHLORIDE 0.9% 500 ML ONE ×2 (11:49→15:04)
[2024-11-22] MEDS ORDERED: HEPARIN 10,000 UNIT/10 ML VIAL IV ONE (12:31)
[2024-11-22] MEDS ORDERED: HEPA 1000U/500MLS 2,000 UNIT/1,000 ML BAG IV ONE (12:31)
[2024-11-22] MEDS ORDERED: LIDOCAINE 1% 20 ML MDV ONE (12:31)
[2024-11-22] MEDS ORDERED: MIDAZOLAM HCL 2 MG/2 ML INJ ONE (12:32)
[2024-11-22] MEDS ORDERED: HEPARIN 5000 UNIT/ML 1 ML VIAL ONE (12:32)
[2024-11-22] MEDS ORDERED: CLOPIDOGREL 75 MG TABLET ONE (12:32)
[2024-11-22] MEDS ORDERED: ATROPINE SULF 1 MG/10 ML SYR IV ONE (12:32)
[2024-11-22] MEDS ORDERED: TICAGRELOR 90 MG TABLET PO ONE (12:32)
[2024-11-22] MEDS ORDERED: ASPIRIN 325 MG TAB ONE ×2 (12:33→13:40)
[2024-11-22] MEDS ORDERED: FENTANYL CITR 100 MCG/2 ML ONE (12:33)
[2024-11-22] MEDS ORDERED: HYDRALAZINE HCL 20 MG/ML VIAL ONE (13:35)
[2024-11-22] MEDS ORDERED: PRASUGREL (EFFIENT) 10 MG TAB ONE (13:40)
[2024-11-22 14:09] VITALS: TEMP 97.9
[2024-11-22] MEDS: Phenylephrine HCl 10 MG/ML 1 ML VIAL ONE (14:46)
[2024-11-22] MEDS: ACETAMINOPHEN 325 MG TABLET ONE (16:42)
[2024-11-22 16:50] VITALS: O2SAT 99
[2024-11-22 18:00] VITALS: BP 109/66
--- NOTE | 2024-11-22 20:15 | OP ---
Date of Procedure: 11/22/2024 Surgeon: JODI GARIBAY Procedures Performed: 1. Selective coronary angiogram with bypass graft study. 2. Left heart catheterization. 3. PCI of severe mid and distal RCA, I used 3.0 x 16 distally and 3.0 x 20 in the mid segment and pos tdilated using a 3.5 x 12 mm NC balloon. Indication: Unstable angina. Access: Left common femoral artery 6-Moroccan closed with Mynx closure device. Complications: None. Bleeding: Less than 50 mL. Anesthesia: Total sedation time was 1 hour, used fentanyl and Versed. Description Of Procedure: After risks, benefits, and alternatives were explained, patient agreed to procedure and signed informed consent. The patient was brought into cardiac catheterization laborato , prepped and draped in the usual sterile fashion. Then, I accessed left common femoral artery usi ng micropuncture kit, ultrasound guidance, fluoroscopy, placed 6-Moroccan [place] sheath and took 6-Fr ench JL4 catheter over the J-wire into the aortic root, engaged the left main, took standard views an d then I exchanged for 6-Moroccan JR4 catheter engaged the RCA, took standard views, and SVG to OM, too k standard views and the LEON to LAD and took standard views and then exchanged for a 6-Moroccan JR4 gu pascale, engaged the RCA, gave systemic heparin to assure ACT level above 250, and he is on dual antiplat elet therapy, took Runthrough wire into the RCA, placed it distally, and using a 3.0 balloon, the les ion expanded very well and then placed a 3.0 x 16 mm Synergy drug-eluting stent distally, overlapped proximally with a 3.0 x 20 mm Synergy drug-eluting stent. Then, I used 3.5 x 20 mm NC balloon to pos tdilate the whole stent. Final angiogram was satisfactory. Wire and guide were removed and the carreon th was removed and 6-Moroccan Mynx closure device was used for closure with good hemostasis. Findings: 1. Left main is normal. 2. LAD; [employer] proximally. 3. Left circumflex; [employer] ostially. 4. RCA; there is a stent proximal to distal with 90% in-stent restenosis in the mid segment, 80% in-s tent restenosis in distal segment, status post successful PCI as above. Bypass Graft Study: 1. Patent SVG to OM. 2. Patent LEON to LAD. Conclusion: 1. Severe eklutna coronary artery disease with patent SVG to OM and patent LEON to LAD. 2. Severe mid RCA in-stent restenosis, status post successful PCI as above. Plan: Aspirin, Plavix, high-dose statin. Follow up with me in the office in 1 week, and periodic st ress test. SR/MODL Voice ID: [id number] Report ID: [id number]
== END 2024-11-22 17:50 | disposition home or self-care (01) ==
LOC: CCL 11:45
PROVIDERS: ATTEND Internal Medicine
DX: I25.110 Atherosclerotic heart disease of native coronary artery with unstable angina pectoris (principal); I25.82 Chronic total occlusion of coronary artery; T82.855A Stenosis of coronary artery stent, initial encounter; I65.23 Occlusion and stenosis of bilateral carotid arteries; I70.203 Unspecified atherosclerosis of native arteries of extremities, bilateral legs; I10 Essential (primary) hypertension; E78.2 Mixed hyperlipidemia; E11.9 Type 2 diabetes mellitus without complications; Z95.1 Presence of aortocoronary bypass graft; Z79.899 Other long term (current) drug therapy; Z88.0 Allergy status to penicillin; Z88.1 Allergy status to other antibiotic agents; Z88.5 Allergy status to narcotic agent; Z88.8 Allergy status to other drugs, medicaments and biological substances; Z82.49 Family history of ischemic heart disease and other diseases of the circulatory system
CPT/HCPCS: 93005; 85025; 80048; 36415; 85610; 85347 ×2; 85730; 71045; 92928; 93459; 76937; C1893; C1725; J0360; J2003; J2371; J2250; J3010; J7040 ×2; C1760; 93458; 99152; 99153; J0461; J1644